=== PATIENT | female | born 1950 | race Caucasian/White ===

== ENCOUNTER 2018-02-05 19:51 | Emergency (ER) | payer MEDICARE, OTHER ==
[~2018-02-05] VITALS: Ht 165.1 cm; Wt 47.6 kg
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
[2018-02-05 20:36] VITALS: BP 154/87
[2018-02-05 20:39] VITALS: BP 154/87
== END 2018-02-05 20:55 ==
LOC: EDBD 19:51 → EMR 20:11
DX: F11.20 Opioid dependence, uncomplicated (principal)
CPT/HCPCS: 99284

== ENCOUNTER 2018-04-02 23:24 | Emergency (ER) | payer MEDICARE, OTHER ==
[~2018-04-02] VITALS: Ht 165.1 cm; Wt 59.0 kg
[~2018-04-02 23:24] MED LIST: METHADONE HCL5 MG PO
[2018-04-02] MEDS ORDERED: Acetaminophen 500mg (ES) tab ORAL ONE (23:30)
[2018-04-03] MEDS ORDERED: LIDOCAINE700 M1 TP (01:37)
[2018-04-03 01:40] VITALS: BP 122/78
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
== END 2018-04-03 01:40 | disposition home or self-care (01) ==
LOC: EDBD 23:24 → EMR 23:55
DX: S30.0XXA Contusion of lower back and pelvis, initial encounter (principal); Y09 Assault by unspecified means; Y93.9 Activity, unspecified; Y92.9 Unspecified place or not applicable
CPT/HCPCS: 70450; 72131; 99284

== ENCOUNTER → 2019-06-14 | Emergency (ER) | payer MEDICARE, OTHER ==
[~2019-06-14] VITALS: Ht 167.6 cm; Wt 63.5 kg
[~2019-06-14] MED LIST changes: +ALBUTEROL SULF8.5 GM INH; +Albuterol/Ipratropium 3ml neb HHN ONE; +EPINEPHrine 1mg/1ml Amp ONE; +LIDOCAINE700 M1 TP; +NKM
[2019-06-14 07:51] VITALS: BP 143/70
--- NOTE | 2019-06-14 07:51 | NUR ---
ED Nurse Note: PT is homeless from streets ([employer]) brought in by SIDRA RA 67 for SOB, R-lung field wheezing, and cough. PT has HX of asthma, reported PT goes to methadone clinic daily. VS reported BP 143/70; HR 96; RR 16; rectal temp 97.6, O2 sat prior treatment 86%, PT was given Albuterol 5mg neb treatment O2 sat 96% with treatment. PT refuses male RN/staff help, female RN/staff requested, JOHNNY Yost made aware. PT is refusing placement of IV access. Bilateral arms reveal scabs, bilateral legs/feet no wounds, PT refuses to take off clothes.
--- NOTE | 2019-06-14 08:01 | NUR ---
ED Nurse Note: Pt states that she does not take any medications.
--- NOTE | 2019-06-14 08:05 | Emergency Room Report ---
History of Present Illness General Chief Complaint: Dyspnea/Respdistress Source: Medical Record, EMS Present Illness HPI She is a 68-year-old female who presents after increased difficulty with breathing. Patient had gradual onset of symptoms since this morning. She reports having some prior history of COPD. She states that she still smokes occasionally. She reports having increased productive cough. She denies any fever. She reports having some increased generalized body pain. Patient denies any prior cardiac conditions. She denies taking medications regularly. History is limited by poor historian. Allergies: Coded Allergies: No Known Allergies (Unverified , 02/05/18) Patient History Now: No Reviewed Nursing Documentation: PMH: Agreed; PSxH: Agreed Nursing Documentation-PMH Hx Asthma: Yes Review of Systems All Other Systems: negative except mentioned in HPI Physical Exam Vital Signs Date Time Temp Pulse Resp B/P (MAP) Pulse Ox O2 Delivery O2 Flow Rate FiO2 06/14/19 07:51 96 16 143/70 (94) 96 Room Air Sp02 EP Interpretation: reviewed, normal General Appearance: normal inspection, well appearing, no apparent distress, alert, GCS 15, non-toxic, thin, Chronically Ill Head: normocephalic, atraumatic ENT: normal ENT inspection, hearing grossly normal, normal voice Neck: normal inspection, full range of motion, supple, no bony tend Respiratory: no retraction, wheezing Cardiovascular #1: regular rate, rhythm, no edema Gastrointestinal: normal inspection, normal bowel sounds, non tender, soft, no guarding, no hernia Genitourinary: no CVA tenderness Musculoskeletal: normal inspection, back normal, normal range of motion Neurologic: normal inspection, alert, oriented x3, responsive, manager program management III-XII nml as tested, speech normal Psychiatric: mood/affect normal Skin: no rash Medical Decision Making Diagnostic Impression: Primary Impression: COPD exacerbation ER Course Patient presented for shortness of breath. Differential included but was not limited to anemia, pneumonia, pneumothorax, myocardial infarction, pericardial effusion, congestive heart failure, acidosis. Because of complexity of patient' s case laboratory tests and imaging studies were ordered. Patient was noted to have prior history of chronic lung disease and is currently a smoker. She was noted to have wheezing and symptoms consistent with a COPD exacerbation. Chest x-ray 1 view read by radiology showed hyperinflated lungs without acute infiltrate or cardiomegaly. EKG interpreted by me showed normal sinus rhythm with a rate of [address] or T wave changes. Nonspecific T wave flattening was noted. Patient was given breathing treatments by paramedics prior to arrival and continued to have some wheezing. She was placed on a restaurant crew. She was given IV Solu-Medrol. She was given additional breathing treatment. Patient is noted to have improvement in her respiratory status. Patient stated that she did not want to remain in the hospital and wanted to leave. I do not feel that the patient is currently stable for discharge and patient was advised the risks benefits and alternatives of leaving AGAINST MEDICAL ADVICE. Patient stated that she wanted to leave the hospital despite the risk. Labs Test 06/14/19 09:10 White Blood Count 8.1 K/UL (4.8-10.8) Red Blood Count 5.69 M/UL (4.20-5.40) Hemoglobin 17.7 G/DL (12.0-16.0) Hematocrit 53.4 % (37.0-47.0) Mean Corpuscular Volume 94 FL (80-99) Mean Corpuscular Hemoglobin 31.2 PG (27.0-31.0) Mean Corpuscular Hemoglobin Concent 33.2 G/DL (32.0-36.0) Red Cell Distribution Width 10.3 % (11.6-14.8) Platelet Count 199 K/UL (150-450) Mean Platelet Volume 8.9 FL (6.5-10.1) Neutrophils (%) (Auto) 80.3 % (45.0-75.0) Lymphocytes (%) (Auto) 10.2 % (20.0-45.0) Monocytes (%) (Auto) 8.3 % (1.0-10.0) Eosinophils (%) (Auto) 0.0 % (0.0-3.0) Basophils (%) (Auto) 1.1 % (0.0-2.0) Prothrombin Time 10.6 SEC (9.30-11.50) Prothromb Time International Ratio 1.0 (0.9-1.1) Activated Partial Thromboplast Time 25 SEC (23-33) Sodium Level 139 MMOL/L (136-145) Potassium Level 4.4 MMOL/L (3.5-5.1) Chloride Level 101 MMOL/L (98-107) Carbon Dioxide Level 33 MMOL/L (21-32) Anion Gap 5 mmol/L (5-15) Blood Urea Nitrogen 17 mg/dL (7-18) Creatinine 0.8 MG/DL (0.55-1.30) Estimat Glomerular Filtration Rate > 60 mL/min (>60) Glucose Level 123 MG/DL (74-106) Calcium Level 9.0 MG/DL (8.5-10.1) Total Bilirubin 0.4 MG/DL (0.2-1.0) Aspartate Amino Transf (AST/SGOT) 39 U/L (15-37) Alanine Aminotransferase (ALT/SGPT) 25 U/L (12-78) Alkaline Phosphatase 70 U/L (46-116) Troponin I 0.035 ng/mL (0.000-0.056) Pro-B-Type Natriuretic Peptide 696 pg/mL (0-125) Total Protein 7.6 G/DL (6.4-8.2) Albumin 3.4 G/DL (3.4-5.0) Globulin 4.2 g/dL Albumin/Globulin Ratio 0.8 (1.0-2.7) EKG Diagnostic Results Rate: normal - 79 Rhythm: NSR ST Segments: other - Nonspecific ST changes. Last Vital Signs Date Time Temp Pulse Resp B/P (MAP) Pulse Ox O2 Delivery O2 Flow Rate FiO2 06/14/19 07:51 96 16 143/70 (94) 96 Room Air Status: improved Disposition: AGAINST MEDICAL ADVICE Condition: Stable Scripts Albuterol Sulfate* (ALBUTEROL SULFATE MDI*) 8.5 Gm Hfa.aer.ad 2 PUFF INH Q6H, #1 EA 0 Refills Prov: Keo Galvez MD 06/14/19 Referrals: NOT CHOSEN KATY/,REFERRING (PCP) Keo Galvez MD Jun 14, 2019 08:05
--- NOTE | 2019-06-14 08:51 | NUR ---
ED Nurse Note: IV access unattainable at the moment and PT is non cooperative. CN made aware.
--- NOTE | 2019-06-14 09:11 | Diagnostic Imaging Report ---
EXAM: XR Chest, 1 View CLINICAL HISTORY: SOB TECHNIQUE: Frontal view of the chest. COMPARISON: No relevant prior studies available. FINDINGS: Lungs: Hyperinflated lungs, COPD. Mild interstitial prominence. No focal infiltrate or consolidation. Pleural space: Unremarkable. No pneumothorax. Heart: Unremarkable. No cardiomegaly. Mediastinum: Unremarkable. Bones joints: Unremarkable. IMPRESSION: 1. Hyperinflated lungs, COPD. 2. Mild interstitial prominence. No focal infiltrate or consolidation.
--- NOTE | 2019-06-14 09:14 | NUR ---
ED Nurse Note: Labs drawn and sent, only 1 set of blood culture obtained.
--- NOTE | 2019-06-14 09:25 | NUR ---
HAND-OFF: Report and PT given to KARSON Arcos. PT VS 117/92, HR 96, RR 20, O2 sat 92%. PT shows no S/S of respiratory distress. PT moved from Trauma bed 8 to Monitored bed 6.
[2019-06-14 09:29] VITALS: BP 137/83
[2019-06-14 09:31] LABS: ANION GAP 5 mmol/L (5-15); BLOOD UREA NITROGEN 17 mg/dL (7-18); CARBON DIOXIDE 33 MMOL/L (21-32); CHLORIDE 101 MMOL/L (98-107); CREATININE 0.8 MG/DL (0.55-1.30); POTASSIUM 4.4 MMOL/L (3.5-5.1); SODIUM 139 MMOL/L (136-145)
[2019-06-14 09:33] LABS: BASOPHILS % (AUTO) 1.1 % (0.0-2.0); HEMATOCRIT 53.4 % (37.0-47.0); HEMOGLOBIN 17.7 G/DL (12.0-16.0); LYMPHOCYTES % (AUTO) 10.2 % (20.0-45.0); MEAN CORPUSCULAR VOLUME 94 FL (80-99); MONOCYTES % (AUTO) 8.3 % (1.0-10.0); NEUTROPHILS % (AUTO) 80.3 % (45.0-75.0); PLATELET COUNT 199 K/UL (150-450); RED BLOOD COUNT 5.69 M/UL (4.20-5.40); RED CELL DISTRIBUTION WIDTH 10.3 % (11.6-14.8); WHITE BLOOD COUNT 8.1 K/UL (4.8-10.8)
[2019-06-14 09:42] LABS: ALANINE AMINOTRANSFERASE 25 U/L (12-78); ALBUMIN 3.4 G/DL (3.4-5.0); ALBUMIN/GLOBULIN RATIO 0.8 (1.0-2.7); ALKALINE PHOSPHATASE 70 U/L (46-116); ASPARTATE AMINO TRANSFERASE 39 U/L (15-37); BILIRUBIN,TOTAL 0.4 MG/DL (0.2-1.0)
--- NOTE | 2019-06-14 10:10 | NUR ---
ED Nurse Note: pt is requesting methadone, states that we must either give it to her or she will get up and leave. O2 sats are at 85% on RA without supplemental O2. I explained to the pt that [facility] will not be ordering her methadone, pt has become increasingly agitated. she refuses to sign AMA paperwork unless she is provided with a method of transportation to get to methadone clinic or money for the bus to get there. pt does not know the name or address of clinic, only which buses to take to get there. pt does not know the dose of methatdone she needs either. security is at bedside
--- NOTE | 2019-06-14 10:20 | NUR ---
ED Nurse Note: security escorted pt out of facility via wheelchair. they report that they helped her get on a bus. pt refused to sign AMA form. AMRIKD is aware and was able to explain the risks to the pt before she left but she still wanted to go. pt verbalized understanding and left with her belongings
== END | disposition home or self-care (01) ==
LOC: EDUNIT# 07:44 → EDBD 07:51 → EMR 08:00
DX: J44.1 Chronic obstructive pulmonary disease with (acute) exacerbation (principal); F17.200 Nicotine dependence, unspecified, uncomplicated
CPT/HCPCS: 36415; 71045; 80053; 83880; 84484; 85025; 85610; 85730; 87040; 93005; 94640; 99284; J7620

== ENCOUNTER 2019-06-15 05:41 | Inpatient (IN) | payer MEDICARE, OTHER ==
[~2019-06-15] VITALS: Ht 160 cm; Wt 46.8 kg
[~2019-06-15 05:41] MED LIST changes: -Albuterol/Ipratropium 3ml neb HHN ONE; -EPINEPHrine 1mg/1ml Amp ONE
[2019-06-15] MEDS ORDERED: Ipratropium 0.02% Inh Soln 2.5ml UD HHN ONE (05:45)
[2019-06-15] MEDS ORDERED: Solu-MEDROL 125mg Inj IVP ONE (05:45)
[2019-06-15] MEDS ORDERED: EPINEPHrine 1mg/1ml Amp IM ONE (05:45)
[2019-06-15] MEDS: Albuterol ud Inhalation HHN SCH ×3 (05:59→06:47)
--- NOTE | 2019-06-15 06:10 | NUR ---
ED Nurse Note: Recieved pt BIBA from home with c/o severe respiratory disress, pt is awake, alert and oriented x 4, noted with severe sob and tachypnea, pt immediately placed on BIPAP by respiratory therapist, gowned and placed on cardiac monitoring, pt admits to IV drug use, BUE noted with severe needle like markings on arms and legs, attempting IV line, pt denies cp, abd pain or any other complaints, pt denies any medical hx other than drug use which she states she takes methadone for, will continue to obtain lbs and closely monitor and carry out orders as ordered by .
--- NOTE | 2019-06-15 06:30 | Emergency Room Report ---
History of Present Illness General Chief Complaint: Dyspnea/Respdistress Source: Patient, Medical Record, EMS Present Illness HPI Patient presents with dyspnea. She is transported by EMS. They did not start an IV and gave the patient albuterol treatment. She was transported here by them yesterday morning. They report she has a history of being on methadone and suspect other drugs involved. Apparently she signed out AMA yesterday. She stated yesterday she takes methadone 180 mg/d. She is unable to answer questions as she is obtunded. Allergies: Coded Allergies: No Known Allergies (Unverified , 02/05/18) Patient History Past Medical History: see triage record Social History: Reports: smoking, drug use Social History Narrative From streets Last Menstrual Period: n/a Reviewed Nursing Documentation: PMH: Agreed; PSxH: Agreed Nursing Documentation-PMH Past Medical History: No History, Except For Hx Asthma: Yes Physical Exam Vital Signs Date Time Temp Pulse Resp B/P (MAP) Pulse Ox O2 Delivery O2 Flow Rate FiO2 06/15/19 05:39 97.5 120 39 129/79 (96) 100 Room Air 06/15/19 05:46 50 Sp02 EP Interpretation: reviewed, abnormal - Hypoxic on 50% mask General Appearance: lethargic, thin, Chronically Ill Eyes: bilateral eye PERRL - 3 mm bilat ENT: moist mucus membranes Neck: supple Respiratory: crackles, wheezing, expiration, inspiration Neurologic: DTRs symmetric, other - Lethargic but moves all 4 Skin: mottled, other - Cyanotic Procedures Critical Care Time Critical Care Time Total Critical Care Time: 90 min bedside evaluation and treatment excludes procedures (EKG). Reason for critical care: Respiratory failure, repeat exams, NSTEMI Possible complications: hypotension, hypertension, AK, shock, arrhythmias, metabolic acidosis, end organ damage, respiratory failure. Interventions: BiPAP, Solu-Medrol, breathing treatments, repeated exams, aspirin , discussion with patient regarding treatment as she was refusing care at one point Course: Patient presented with respiratory failure. BiPAP begun immediately and breathing treatments. Epinephrine given IM. Some improvement in CO2 monitor begun. Positive troponin treated with aspirin. Patient initially refused as she stated she wanted to have pain treatment. EKG without STEMI. Morphine ordered. At this time patient was more alert. Tolerating BiPAP with improvement. She was no longer cyanotic. Breathing treatment repeated. Discussed with admitting physician. Consultations: nursing staff, EMS, respiratory therapy Performed by: Dr. Cheek Tolerated well condition = critical Medical Decision Making Diagnostic Impression: Primary Impression: Respiratory distress Additional Impressions: COPD exacerbation Opiate dependence Qualified Codes: F11.29 - Opioid dependence with unspecified opioid-induced disorder Elevated troponin Hyperglycemia ER Course Patient presents with respiratory distress with somnolence. Differential includes opiate excess, COPD exacerbation with CO2 retention, pneumonia, myocardial infarction, opiate related pulmonary edema amongst others. The patient is to can think at this time and needs aggressive treatment. I have epinephrine is given as a verbal order. Patient will be evaluated with EKG, chest x-ray and labs. Breathing treatments will be started, the patient will be given Solu-Medrol, BiPAP is ordered. Somewhat improved after epi and on BIPAP 6:20 CO2 now 22. EKG with sinus rhythm. P pulmonale and nonspecific ST-T wave changes without injury. Chest x-ray with COPD without infiltrate. Called with positive troponin at 735. Aspirin ordered. Patient refused aspirin until getting Methadone. Told her I will tx with morphine. She is fully awake (no narcan given). No more mottling or cyanosis. Presented to Dr. Obrien. Admitted to stepdown unit. Laboratory Tests Test 06/15/19 06:15 White Blood Count 8.6 K/UL (4.8-10.8) Red Blood Count 5.16 M/UL (4.20-5.40) Hemoglobin 16.2 G/DL (12.0-16.0) H Hematocrit 47.7 % (37.0-47.0) H Mean Corpuscular Volume 93 FL (80-99) Mean Corpuscular Hemoglobin 31.5 PG (27.0-31.0) H Mean Corpuscular Hemoglobin Concent 34.0 G/DL (32.0-36.0) Red Cell Distribution Width 9.9 % (11.6-14.8) L Platelet Count 202 K/UL (150-450) Mean Platelet Volume 8.4 FL (6.5-10.1) Neutrophils (%) (Auto) 73.6 % (45.0-75.0) Lymphocytes (%) (Auto) 17.0 % (20.0-45.0) L Monocytes (%) (Auto) 8.1 % (1.0-10.0) Eosinophils (%) (Auto) 0.1 % (0.0-3.0) Basophils (%) (Auto) 1.3 % (0.0-2.0) Prothrombin Time 10.9 SEC (9.30-11.50) Prothrombin Time INR 1.0 (0.9-1.1) PTT 26 SEC (23-33) Sodium Level 139 MMOL/L (136-145) Potassium Level 3.6 MMOL/L (3.5-5.1) Chloride Level 99 MMOL/L (98-107) Carbon Dioxide Level 30 MMOL/L (21-32) Anion Gap 10 mmol/L (5-15) Blood Urea Nitrogen 22 mg/dL (7-18) H Creatinine 0.8 MG/DL (0.55-1.30) Estimate Glomerular Filtration Rate > 60 mL/min (>60) Glucose Level 232 MG/DL (74-106) #H Calcium Level 8.8 MG/DL (8.5-10.1) Magnesium Level 1.7 MG/DL (1.8-2.4) L Total Bilirubin 0.5 MG/DL (0.2-1.0) Aspartate Amino Transferase (AST) 45 U/L (15-37) H Alanine Aminotransferase (ALT) 30 U/L (12-78) Alkaline Phosphatase 61 U/L (46-116) Total Creatine Kinase 396 U/L (26-308) H Troponin I 1.824 ng/mL (0.000-0.056) Pro-B-Type Natriuretic Peptide 1920 pg/mL (0-125) H Total Protein 7.2 G/DL (6.4-8.2) Albumin 3.2 G/DL (3.4-5.0) L Globulin 4.0 g/dL Albumin/Globulin Ratio 0.8 (1.0-2.7) L Lipase 56 U/L (73-393) L EKG Diagnostic Results Rate: normal Rhythm: NSR ST Segments: no acute changes - The pulmonology no ST elevation ASA given to the pt in ED: Yes Rhythm Strip Diag. Results EP Interpretation: yes Rhythm: NSR, no PVC's, no ectopy Chest X-Ray Diagnostic Results Chest X-Ray Diagnostic Results : Chest X-Ray Ordered: Yes # of Views/Limited/Complete: 1 View Indication: Shortness of Breath EP Interpretation: Yes Interpretation: no consolidation, no effusion, no pneumothorax, other - COPD Impression: Other Electronically Signed by: Electronically signed by Naif Cheek MD Last Vital Signs Date Time Temp Pulse Resp B/P (MAP) Pulse Ox O2 Delivery O2 Flow Rate FiO2 06/16/19 00:00 98.2 72 20 104/60 (75) 93 06/16/19 00:00 Nasal Cannula 2.0 06/15/19 08:20 50 Status: improved Disposition: ADMITTED INPATIENT Condition: Critical Referrals: NOT CHOSEN [facility]/,REFERRING (PCP) Naif Cheek MD Jun 15, 2019 06:30
--- NOTE | 2019-06-15 06:30 | NUR ---
ED Nurse Note: IV line obtained after many atempts by several nurses, meds given anf fluids started as ordered, pt is awake and alert, c/o having severe pain and asking for methadone, MD informed immediately, tp breathing is appearing to be with less effort, pt remains on BIPAP and continuous monitoring.
[2019-06-15 06:45] VITALS: BP 100/70
[2019-06-15 07:18] LABS: BASOPHILS % (AUTO) 1.3 % (0.0-2.0); EOSINOPHILS % (AUTO) 0.1 % (0.0-3.0); HEMATOCRIT 47.7 % (37.0-47.0); HEMOGLOBIN 16.2 G/DL (12.0-16.0); MEAN CORPUSCULAR VOLUME 93 FL (80-99); MONOCYTES % (AUTO) 8.1 % (1.0-10.0); NEUTROPHILS % (AUTO) 73.6 % (45.0-75.0); PLATELET COUNT 202 K/UL (150-450); RED BLOOD COUNT 5.16 M/UL (4.20-5.40); RED CELL DISTRIBUTION WIDTH 9.9 % (11.6-14.8); WHITE BLOOD COUNT 8.6 K/UL (4.8-10.8)
[2019-06-15 07:28] LABS: ANION GAP 10 mmol/L (5-15); BLOOD UREA NITROGEN 22 mg/dL (7-18); CALCIUM 8.8 MG/DL (8.5-10.1); CARBON DIOXIDE 30 MMOL/L (21-32); CHLORIDE 99 MMOL/L (98-107); CREATININE 0.8 MG/DL (0.55-1.30); POTASSIUM 3.6 MMOL/L (3.5-5.1); SODIUM 139 MMOL/L (136-145)
[2019-06-15 07:30] VITALS: BP 105/68
--- NOTE | 2019-06-15 07:30 | NUR ---
ED Nurse Note: pt is tolerating bi-pap well, remains calm, aware of being admitted to hospital. MD aware of troponin result. vital signs stable, CO2 monitor: 26. belongings list done. pt does not meet criteria for swab specimen collection.
[2019-06-15 07:41] LABS: ALANINE AMINOTRANSFERASE 30 U/L (12-78); ALBUMIN 3.2 G/DL (3.4-5.0); ALBUMIN/GLOBULIN RATIO 0.8 (1.0-2.7); ALKALINE PHOSPHATASE 61 U/L (46-116); ASPARTATE AMINO TRANSFERASE 45 U/L (15-37); BILIRUBIN,TOTAL 0.5 MG/DL (0.2-1.0); CREATINE KINASE 396 U/L (26-308)
[2019-06-15] MEDS ORDERED: Morphine Sulfate 4mg/ml Inj (IV USE ONLY) IVP ONE (08:00)
--- NOTE | 2019-06-15 08:20 | NUR ---
ED Nurse Note: pt is in stable condition, will transport pt upstairs with RN per ACLS protocol
--- NOTE | 2019-06-15 08:30 | NUR ---
NURSE NOTES: Received report from KARSON Arcos. Patient arrived to unit in stable condition. No s/sx of SOB, patient is on 2 L NC. Patient noted has Bipap 15/5 50% FiO2, patient refuses Bipap, RT also aware of patients refusal of Bipap. No presence of pain or discomfort at this time. Bed is in lowest position, brakes engaged. Call light is kept within easy reach. Will continue to monitor patient.
--- NOTE | 2019-06-15 09:00 | NUR ---
NURSE NOTES: Patient states would like to leave hospital Against Medical Advice, explained to patient risks and possible negative outcomes of leaving hospital AMA. Called and notified Dr. Obrien.
--- NOTE | 2019-06-15 10:00 | NUR ---
NURSE NOTES: Patient has changed leaving hospital AMA. Called and notified Dr. Obrien and received admission orders. Informed MD that patient would like to be DNR/DNI for codes status. Patient is alert and oriented x 3-4 and makes medical decision for self. Dr. Obrien acknowledged and ordered DNR/DNI. Informed Dr. Obrien that patient is refusing BiPAP. Dr. Obrien acknowledged and ordered BiPAP QHS and PRN. Informed Dr. Obrien that patient has troponin of 1.824, ordered heparin drip per pharmacy protocol, no heparin bolus, serial troponin lab Q8HR x 3, Dr. Hines for cardiology consult. All orders entered, noted, and carried out. Will continue to monitor patient.
--- NOTE | 2019-06-15 11:00 | NUR ---
NURSE NOTES: Per pharmacist Kyara and pharmacist Mikaela, can Y-Site magnesium sulfate 1 gm IV x 1 and 0.45% normal saline IVF at 50 cc/hr can be W-site with heparin drip. Noted. Charge nurse made aware. Will continue to monitor patient.
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
[2019-06-15] MEDS ORDERED: Heparin 25,000u/D5W 500ml 500 ML IV SCH (11:30)
[2019-06-15] MEDS: Solu-MEDROL 40mg Inj IVP SCH ×3 (11:35→23:31)
--- NOTE | 2019-06-15 12:30 | Diagnostic Imaging Report ---
Indication: Dyspnea Technique: One view of the chest Comparison: 06/14/2019 Findings: Patient's chin obscures the upper mediastinum. Lungs and pleural spaces are grossly clear. The heart size is normal. The aorta is calcified Impression: No acute process
--- NOTE | 2019-06-15 16:15 | History and Physical Report ---
DATE OF ADMISSION: 06/15/2019 HISTORY OF PRESENT ILLNESS: This is a 68-year-old homeless female with a history of chronic methadone use. She was brought to the emergency room early this morning with complaints of shortness of breath. She was given breathing treatments. The patient appeared to be doing very poorly. Per the ER physician's note, she was hypoxic despite being on 50% Ventimask and lethargic. At that time, she was placed on a BiPAP with improvement symptomatology. The patient also received narcotics. She has history of chronic methadone usage. On my assessment, the patient is refusing all care. She has taken off her BiPAP. She is not willing to have an IV in place or a domestic housekeeper. She wishes to leave AMA. She appears to be alert and oriented although occasionally dozes off. REVIEW OF SYSTEMS: Unobtainable. PAST MEDICAL HISTORY: COPD, chronic methadone usage. HOME MEDICATIONS: Methadone, ALLERGIES: None. PHYSICAL EXAMINATION: GENERAL: Reveals a 68-year-old female. VITAL SIGNS: Blood pressure is 120/70, heart rate is 74, respirations 18, afebrile. HEENT: Unremarkable. LUNGS: Shows clear breath sounds bilaterally, diminished at both lung bases. ABDOMEN: Soft. CARDIOVASCULAR: Heart sounds are normal. EXTREMITIES: There is no edema. There is no cyanosis. DIAGNOSTIC AND LABORATORY DATA: EKG shows normal sinus rhythm. X-ray of chest shows hyperinflation. LABORATORY DATA: Lab testing is notable for hemoglobin of 16, BUN 22, glucose 232, magnesium 1.7, and troponin is 1.82. Coags are negative. IMPRESSION: 1. Likely non-STEMI. 2. Exacerbation of COPD. 3. Respiratory failure. 4. Chronic methadone usage. 5. Homeless. DISCUSSION: The patient at this time wishes to leave AMA. I have tried to talk to her and counseled her, however, she is insisting on leaving AMA. Discussed with bedside RN and charge nurse. We will follow. Mehdi Obrien M.D. DR: AVILA JOB#: [id number] CC:
[2019-06-15] MEDS ORDERED: Heparin 5000 units/ml inj IV SCH (18:14)
[2019-06-15] MEDS: Heparin 25,000u/D5W 500ml 500 ML IV SCH (18:45)
--- NOTE | 2019-06-15 19:30 | NUR ---
HAND-OFF: Report given to KARSON Stallings.
--- NOTE | 2019-06-15 19:45 | NUR ---
NURSE NOTES: PATIENT ALERT, ORIENTED X3, CONFUSED TO SITUATION AT THIS TIME, DENIED PAIN OR DISTRESS, RESPIRATION IRREGULAR, ON O2 2LPM VIA NC, O2 SATURATION 94% NOTED, NO COUGH OR SOB NOTED, ABDOMEN SOFT, NON TENDER, PERIPHERAL LINE TO RIGHT FA, INTACT AND PATENT, ONGOING HEPARIN 16 UNIT/KG/HR AND 1/2 NS AT 50ML/HR, MADE LOWER BED POSITION, ON BED ALARM AND LOCKED, PROVIDED CALL LIGHT WITHIN REACH, WILL CONTINUE TO MONITOR.
[2019-06-15 20:00] VITALS: BP 104/73
--- NOTE | 2019-06-15 22:10 | NUR ---
NURSE NOTES: PATIENT DENIED PAIN OR SOB AT THIS TIME.
--- NOTE | 2019-06-15 23:30 | Consultation ---
DATE OF CONSULTATION: 06/15/2019 CONSULTING PHYSICIAN: Jareth Arias M.D. REFERRING PHYSICIAN: Mehdi Obrien M.D. REASON FOR CONSULTATION: 1. Dehydration. 2. Hypomagnesemia. HISTORY OF PRESENT ILLNESS: The patient is a 68-year-old female brought in by EMS due to new onset shortness of breath and dyspnea. She has underlying asthma. Noted to have an elevated troponin. Seemingly, she had signed out against medical advice yesterday. She does take methadone 100 mg per day. Quite agitated. She is not comfortably resting. PAST MEDICAL HISTORY: 1. Opioid dependency. 2. Asthma. PAST SURGICAL HISTORY: Noncontributory. ALLERGIES: No known drug allergies. FAMILY HISTORY: Positive for hypertension. SOCIAL HISTORY: Occasional tobacco. Opioid dependent. No alcohol. REVIEW OF SYSTEMS: CONSTITUTIONAL: The patient is somnolent, but arousable. CARDIOVASCULAR: No current chest pain or palpitations. PULMONARY: Mild shortness of breath with productive cough. GASTROINTESTINAL/GENITOURINARY: No change in urine or bowels habits. No nausea, vomiting, or diarrhea. ENDOCRINOLOGY: No night sweats fevers or chills. MUSCULOSKELETAL: The patient is feeling weak, tired, and fatigued. PHYSICAL EXAMINATION: VITAL SIGNS: Blood pressure 105/68, respiratory rate 18, pulse 98, temperature 98.1, and saturating 97% on 2 liters BiPAP. GENERAL: The patient is somnolent, but arousable. HEENT: Extraocular muscles intact. No lymphadenopathy noted. Oropharyngeal mucosa is clear and dry. CARDIOVASCULAR: S1 and S2. No rubs or gallops. PULMONARY: Mild diffuse expiratory wheezing. Fair air movement. ABDOMEN: Nondistended and nontender. EXTREMITY: No edema noted. LABORATORY DATA: Laboratories dated June 19, 2019, sodium 139, potassium 3.6, creatinine 0.8, and magnesium 1.7. Troponin 1.8. Hemoglobin 16.2, white cell count 8.6, and platelet count 202,000. ASSESSMENT AND PLAN: 1. Hypomagnesemia. At this time, we will replace and check phosphorus levels as well to maintain stable electrolytes during treatment of status asthmaticus. 2. Dehydration. We will continue hypotonic solution. 3. Shortness of breath secondary to status asthmaticus. Defer management to Pulmonary. Let me take this opportunity to thank Dr. Obrien. Jareth Arias MD DR: KEYSHAWN JOB#: [id number] CC:
[2019-06-16] VITALS (7 sets, daily range): BP systolic 92–137; BP diastolic 54–92
--- NOTE | 2019-06-16 00:21 | NUR ---
HAND-OFF: Report given to RODOLFO CUELLO RN.
--- NOTE | 2019-06-16 00:22 | NUR ---
NURSE NOTES: received pt from Waldemar RN., pt is resting and sleeping on the bed. Heparin drip is running at 16unit/kg/hr. Right FA IV 22G is intact, clean, and patent, and 1/2 NS running at 50cc/hr. no symptoms of bleeding. bed at the lowest position, alarmed, and locked. call light within reach. will continue to monitor pt with plan of care.
--- NOTE | 2019-06-16 00:59 | NUR ---
NURSE NOTES: pt strongly refuses to draw blood peripherally to get ptt and troponin level. explained the critical reason of drawing blood and consequences to refusing. pt still refuses to not draw blood. pt states " I want to do it later at 0430 AM, I do not want to do anything before that. I know my consequences of not doing it." call light within reach. will continue to monitor pt.
--- NOTE | 2019-06-16 03:00 | NUR ---
NURSE NOTES: attempted to ask pt to draw blood for PTT and troponin level, pt finally agree to draw blood but just once for now. pt wants to rest and pt refuses to get cleaned. pt states " I want to do everything in the morning. not now." call light within reach. will continue to monitor pt with plan of care.
[2019-06-16 03:24] LABS: ANION GAP 2 mmol/L (5-15); BLOOD UREA NITROGEN 16 mg/dL (7-18); CALCIUM 8.9 MG/DL (8.5-10.1); CARBON DIOXIDE 34 MMOL/L (21-32); CHLORIDE 101 MMOL/L (98-107); CREATININE 0.7 MG/DL (0.55-1.30); POTASSIUM 4.6 MMOL/L (3.5-5.1); SODIUM 137 MMOL/L (136-145)
--- NOTE | 2019-06-16 03:51 | NUR ---
NURSE NOTES: confirmed with pharmacist Gilma to continue heparin at same 16 unit/kg/hr. and aPTT test at 0400 on 06/17/2019. will carry on. pt is resting on the bed. call light within reach. no SOB noted.
[2019-06-16 04:17] LABS: PHOSPHORUS 3.6 MG/DL (2.5-4.9)
[2019-06-16] MEDS: Solu-MEDROL 40mg Inj IVP SCH ×4 (05:32→23:05)
--- NOTE | 2019-06-16 07:20 | NUR ---
NURSE NOTES: RECEIVED BED SIDE REPORT FROM [employer] SPECIALIST OF NOC SHIFT. RECEIVED PT RESTING IN BED COMFORTABLY DENIES CP AT THIS TIME.PT USING O2@ 3L/MINTS VIA N/C,SAT 96%.PT RECEIVING HEPARIN DRIP 16U/KG/HR INFUSING WELL CONNECTED TO H.L ON RT FA. IV SITE INTACT. WILL CONT TO MONITOR.
--- NOTE | 2019-06-16 07:31 | Nephrology Progress Note ---
Assessment/Plan Assessment/Plan: A/P 1) Asthma Exacerbation- per pulmonary mgmt 2) Hypomag- replaced and corrected 3) dehydration- resolved. DC IVFs 4) Opioid Dependancy Subjective Date patient seen: Jun 16, 2019 Time patient seen: 07:29 ROS Limited/Unobtainable: No Allergies: Coded Allergies: No Known Allergies (Unverified , 02/05/18) Subjective Patent resting in no overt distress. Breathing improved. Somnolent but arousable Objective Last 24 Hour Vital Signs Date Time Temp Pulse Resp B/P (MAP) Pulse Ox O2 Delivery O2 Flow Rate FiO2 06/16/19 04:00 2.0 06/16/19 04:00 Nasal Cannula 2.0 06/16/19 04:00 97.9 91 20 103/61 (75) 94 06/16/19 03:07 85 06/16/19 00:00 98.2 72 20 104/60 (75) 93 06/16/19 00:00 Nasal Cannula 2.0 06/15/19 23:27 84 06/15/19 20:00 98.1 86 20 104/73 (83) 94 06/15/19 20:00 2.0 06/15/19 20:00 Nasal Cannula 2.0 06/15/19 19:34 82 06/15/19 16:00 Nasal Cannula 2.0 06/15/19 16:00 2.0 06/15/19 16:00 74 06/15/19 12:00 88 06/15/19 12:00 2.0 06/15/19 12:00 Nasal Cannula 2.0 06/15/19 10:48 Nasal Cannula 2.0 06/15/19 08:38 97 06/15/19 08:20 98.1 98 18 105/68 97 Bi-pap 50 06/15/19 07:40 50 06/15/19 07:30 98 18 105/68 97 Bi-pap 50 Intake and Output 06/15/19 06/16/19 19:00 07:00 Intake Total 1217.278 ml 519.60 ml Balance 1217.278 ml 519.60 ml Intake Oral 0 ml 0 ml IV Total 1217.278 ml 519.60 ml # Voids 2 2 Laboratory Tests 06/15/19 17:30: Activated Partial Thromboplast Time 36H, Troponin I 0.815H 06/16/19 02:45: Activated Partial Thromboplast Time 67H, Troponin I 0.452H, Sodium Level 137, Potassium Level 4.6, Chloride Level 101, Carbon Dioxide Level 34H, Anion Gap 2L , Blood Urea Nitrogen 16, Creatinine 0.7, Estimat Glomerular Filtration Rate > 60, Glucose Level 135H, Calcium Level 8.9, Phosphorus Level 3.6, Magnesium Level 1.9 Height (Feet): 5 Height (Inches): 3.00 Weight (Pounds): 103 General Appearance: no apparent distress EENT: normal ENT inspection Neck: normal alignment, supple Cardiovascular: normal rate, regular rhythm Respiratory/Chest: expiratory wheezing Abdomen: non tender, soft Edema: no edema noted Arm (L), no edema noted Arm (R), no edema noted Leg (L), no edema noted Leg (R), no edema noted Pedal (L), no edema noted Pedal (R), no edema noted Generalized Jareth Arias MD Jun 16, 2019 07:31
--- NOTE | 2019-06-16 07:54 | NUR ---
HAND-OFF: Report given to Joaquim TY. pt no SOB noted.
--- NOTE | 2019-06-16 09:41 | Consultation ---
History of Present Illness General Date patient seen: Jun 16, 2019 Time patient seen: 12:15 Chief Complaint: Dyspnea/Respdistress Present Illness HPI 68 year old female presents with SOB on BiPAP initially for tachypnea. She has hx of IV drug use. No chest pain currently, no fevers. She is on methadone. Cardiology consulted for elevated troponin. Allergies: Coded Allergies: No Known Allergies (Unverified , 02/05/18) Medication History Scheduled Albuterol Sulfate* (Albuterol Sulfate Mdi*), 2 PUFF INH Q6H Lidocaine (Lidocaine), 5 % TP DAILY Methadone Hcl* (Methadone*), Unknown Dose PO DAILY, (Reported) No Known Medications* (NKM - No Known Medications*), 0 ., (Reported) Patient History Healthcare decision maker Resuscitation status Full Code Advanced Directive on File Review of Systems Constitutional: Reports: no symptoms Eye: Reports: no symptoms ENT: Reports: no symptoms Respiratory: Reports: cough, orthopnea, shortness of breath Cardiovascular: Reports: no symptoms Gastrointestinal: Reports: no symptoms Genitourinary: Reports: no symptoms Musculoskeletal: Reports: no symptoms Skin: Reports: no symptoms Psychiatric: Reports: no symptoms Neurological: Reports: no symptoms Endocrine: Reports: no symptoms Hematologic/Lymphatic: Reports: no symptoms Physical Exam General Appearance: confused, mild distress Lines, tubes and drains: peripheral HEENT: normocephalic, atraumatic, anicteric Neck: non-tender, normal alignment, supple, normal inspection Respiratory/Chest: chest wall non-tender, respiratory distress, decreased breath sounds, accessory muscle use, crackles/rales Cardiovascular/Chest: normal peripheral pulses, normal rate Abdomen: normal bowel sounds, non tender, soft, no organomegaly Extremities: normal range of motion, non-tender, normal inspection, no calf tenderness Skin Exam: normal pigmentation, warm/dry, cyanotic Neurologic: tooling engineer II-XII grossly normal, no motor/sensory deficits Last 24 Hour Vital Signs Date Time Temp Pulse Resp B/P (MAP) Pulse Ox O2 Delivery O2 Flow Rate FiO2 06/16/19 08:00 97.7 82 17 112/63 (79) 93 06/16/19 04:00 2.0 06/16/19 04:00 Nasal Cannula 2.0 06/16/19 04:00 97.9 91 20 103/61 (75) 94 06/16/19 03:07 85 06/16/19 00:00 98.2 72 20 104/60 (75) 93 06/16/19 00:00 Nasal Cannula 2.0 06/15/19 23:27 84 06/15/19 20:00 98.1 86 20 104/73 (83) 94 06/15/19 20:00 2.0 06/15/19 20:00 Nasal Cannula 2.0 06/15/19 19:34 82 06/15/19 16:00 Nasal Cannula 2.0 06/15/19 16:00 2.0 06/15/19 16:00 74 06/15/19 12:00 88 06/15/19 12:00 2.0 06/15/19 12:00 Nasal Cannula 2.0 06/15/19 10:48 Nasal Cannula 2.0 Intake and Output 06/15/19 06/16/19 19:00 07:00 Intake Total 1217.278 ml 519.60 ml Balance 1217.278 ml 519.60 ml Intake Oral 0 ml 0 ml IV Total 1217.278 ml 519.60 ml # Voids 2 2 Laboratory Tests Test 06/15/19 17:30 06/16/19 02:45 Activated Partial Thromboplast Time 36 SEC (23-33) H 67 SEC (23-33) H Troponin I 0.815 ng/mL (0.000-0.056) 0.452 ng/mL (0.000-0.056) Sodium Level 137 MMOL/L (136-145) Potassium Level 4.6 MMOL/L (3.5-5.1) Chloride Level 101 MMOL/L (98-107) Carbon Dioxide Level 34 MMOL/L (21-32) H Anion Gap 2 mmol/L (5-15) L Blood Urea Nitrogen 16 mg/dL (7-18) Creatinine 0.7 MG/DL (0.55-1.30) Estimat Glomerular Filtration Rate > 60 mL/min (>60) Glucose Level 135 MG/DL (74-106) H Calcium Level 8.9 MG/DL (8.5-10.1) Phosphorus Level 3.6 MG/DL (2.5-4.9) Magnesium Level 1.9 MG/DL (1.8-2.4) Height (Feet): 5 Height (Inches): 3.00 Weight (Pounds): 103 Medications Current Medications Medications (Trade) Dose Ordered Sig/Mckayla Route PRN Reason Start Time Stop Time Status Last Admin Dose Admin Heparin Sodium/ Dextrose 500 ml @ 14.95 mls/ hr ADJUST PER PROTOCOL IV 06/15/19 18:15 07/15/19 18:14 06/15/19 18:45 Methadone HCl (Methadone HCl) 180 mg DAILY ORAL 06/15/19 15:00 06/22/19 14:59 06/15/19 16:06 Methylprednisolone Sodium Succinate (Solu-MEDROL) 40 mg EVERY 6 HOURS IVP 06/15/19 12:00 07/15/19 11:59 06/16/19 05:32 Sodium Chloride 1,000 ml @ 50 mls/hr Q20H IV 06/15/19 15:15 07/15/19 15:14 06/15/19 16:05 Assessment/Plan Status: stable Assessment/Plan: Assessment: Respiratory distress Elevated troponin/NSTEMI COPD Methadone use Plan: Troponin downtrending, no longer trend Telemetry to monitor for arrhythmias 48 hours heparin for conservative ACS Stress test prior to discharge Echocardiogram to evaluate LV function BiPAP prn Naif Hines MD Jun 16, 2019 09:41
--- NOTE | 2019-06-16 09:45 | Pulmonology Progress Note ---
Assessment/Plan Assessment/Plan IMPRESSION: 1. Likely non-STEMI. 2. Exacerbation of COPD. 3. Respiratory failure. 4. Chronic methadone usage. 5. Homeless. DISCUSSION: Seen by cardiology refusing biPAP Back on methadone On Iv heparin Await cardiology followup Continue steroids and HHN Subjective Interval Events: Seen by cardiology Constitutional: Reports: no symptoms HEENT: Repors: no symptoms Respiratory: Reports: no symptoms Cardiovascular: Reports: no symptoms Gastrointestinal/Abdominal: Reports: no symptoms Genitourinary: Reports: no symptoms Neurologic: Reports: no symptoms Allergies: Coded Allergies: No Known Allergies (Unverified , 02/05/18) Objective Last 24 Hour Vital Signs Date Time Temp Pulse Resp B/P (MAP) Pulse Ox O2 Delivery O2 Flow Rate FiO2 06/16/19 08:00 97.7 82 17 112/63 (79) 93 06/16/19 04:00 2.0 06/16/19 04:00 Nasal Cannula 2.0 06/16/19 04:00 97.9 91 20 103/61 (75) 94 06/16/19 03:07 85 06/16/19 00:00 98.2 72 20 104/60 (75) 93 06/16/19 00:00 Nasal Cannula 2.0 06/15/19 23:27 84 06/15/19 20:00 98.1 86 20 104/73 (83) 94 06/15/19 20:00 2.0 06/15/19 20:00 Nasal Cannula 2.0 06/15/19 19:34 82 06/15/19 16:00 Nasal Cannula 2.0 06/15/19 16:00 2.0 06/15/19 16:00 74 06/15/19 12:00 88 06/15/19 12:00 2.0 06/15/19 12:00 Nasal Cannula 2.0 06/15/19 10:48 Nasal Cannula 2.0 Intake and Output 06/15/19 06/16/19 19:00 07:00 Intake Total 1217.278 ml 519.60 ml Balance 1217.278 ml 519.60 ml Intake Oral 0 ml 0 ml IV Total 1217.278 ml 519.60 ml # Voids 2 2 General Appearance: no acute distress HEENT: normocephalic Respiratory/Chest: chest wall non-tender, lungs clear Cardiovascular: normal peripheral pulses, normal rate Abdomen: normal bowel sounds Laboratory Tests 06/15/19 17:30: Activated Partial Thromboplast Time 36H, Troponin I 0.815H 06/16/19 02:45: Activated Partial Thromboplast Time 67H, Troponin I 0.452H, Sodium Level 137, Potassium Level 4.6, Chloride Level 101, Carbon Dioxide Level 34H, Anion Gap 2L , Blood Urea Nitrogen 16, Creatinine 0.7, Estimat Glomerular Filtration Rate > 60, Glucose Level 135H, Calcium Level 8.9, Phosphorus Level 3.6, Magnesium Level 1.9 Current Medications Medications (Trade) Dose Ordered Sig/Mckayla Route PRN Reason Start Time Stop Time Status Last Admin Dose Admin Heparin Sodium/ Dextrose 500 ml @ 14.95 mls/ hr ADJUST PER PROTOCOL IV 06/15/19 18:15 07/15/19 18:14 06/15/19 18:45 Methadone HCl (Methadone HCl) 180 mg DAILY ORAL 06/15/19 15:00 06/22/19 14:59 06/15/19 16:06 Methylprednisolone Sodium Succinate (Solu-MEDROL) 40 mg EVERY 6 HOURS IVP 06/15/19 12:00 07/15/19 11:59 06/16/19 05:32 Sodium Chloride 1,000 ml @ 50 mls/hr Q20H IV 06/15/19 15:15 07/15/19 15:14 06/15/19 16:05 Mehdi Obrien MD Jun 16, 2019 09:45
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
[2019-06-16] MEDS ORDERED: Lexiscan 0.4mg/5ml syringe IV PRN (12:30)
--- NOTE | 2019-06-16 15:21 | NUR ---
RD ASSESSMENT & RECOMMENDATIONS SEE CARE ACTIVITY FOR COMPLETE ASSESSMENT DAILY ESTIMATED NEEDS: Needs based on Pulmonary, underweight/ 46.7kg 30-35 kcals/kg 0915-0440 total kcals 1-1.5 g protein/kg 47-70 g total protein 25-30 mL/kg 7576-5976 total fluid mLs NUTRITION DIAGNOSIS: Increased kcal/prot needs R/T underweight status as evidenced by pt @ 90% IBW, underweight BMI per guidelines. CURRENT DIET:CLEAR LIQUID DIET PO DIET RECOMMENDATIONS: REGULAR as tolerated ADDITIONAL RECOMMENDATIONS: * Advance diet in timely manner -> on CLD at this time, unknown reason * Standing weight for accurate CBW * Monitor BGs closely while on Solumedrol.
--- NOTE | 2019-06-16 17:19 | Cardiology Report ---
APPROVED REPORT EXAM: Two-dimensional and M-mode echocardiogram with Doppler and color Doppler. INDICATION LV FUNCTION M-Mode DIMENSIONS IVSd0.8 (0.7-1.1cm)Left Atrium (MM)2.7 (1.6-4.0cm) LVDd5.1 (3.5-5.6cm)Aortic Root2.0 (2.0-3.7cm) PWd0.8 (0.7-1.1cm)Aortic Cusp Exc.1.7 (1.5-2.0cm) IVSs1.4 cm LVDs3.8 (2.5-4.0cm) PWs1.4 cm Normal left ventricular chamber size. Mid to distal LV hypokinesis otherwise normal wall motion for other segments .Although the underlying cause may be coronary artery related , the possibility of stress induced cardiomyopathy should be kept in mind as well Left ventricular ejection fraction estimated to be 40%. No evidence left ventricular hypertrophy. No pericardial effusion. All other cardiac chamber sizes are within normal limits. Aortic valve calcification with normal cusp excursion . Mildly thickened mitral valve leaflets with normal excursion. Mild mitral annulus and aortic root calcification. Pulmonic valve not well visualized. IVC at normal size with physiologic collapse . A color flow and spectral Doppler study was performed and revealed: Mild aortic insufficiency . Mitral diastolic velocities suggest reduced left ventricular relaxation c/w mild LV diastolic dysfunction (Grade I ) Trace mitral regurgitation. Mild tricuspid regurgitation. Tricuspid systolic velocities suggests peak right ventricular systolic pressure of 28mmHg.
[2019-06-16] MEDS: Heparin 25,000u/D5W 500ml 500 ML IV SCH ×2 (18:37→19:44)
--- NOTE | 2019-06-16 19:12 | NUR ---
HAND-OFF: Report given to .LUCIA YT.
--- NOTE | 2019-06-16 19:30 | NUR ---
NURSE NOTES: Received report from KARSON Tillman, pt. in bed awake, A/O x's4- able to make needs known, no signs or symptoms of acute cardiac or respiratory distress noted, pt. appears to be sating well on 2L NC- at 98%. pt. comfort measures provided, call light within easy reach, bed alarm on, side rails up x's3 and safety brakes engaged, pt. aware to ask for assist when using bed velasquez. pt. has no IV at this time as it was d/c by patient- per endorsement- but new IV inserted by charge nurse Reji- LFA 22G- running Heparin drip at 16U/Kg/hr at 14.95 mls/hr- no signs of bleeding noted, pt. has also 1/2 NS running at 50cc/hr - IV intact and patent, safety measures continued, will continue with plan of care.
[2019-06-17] VITALS: BP 129/89
[2019-06-17 04:00] VITALS: BP 133/89
[2019-06-17] MEDS: Solu-MEDROL 40mg Inj IVP SCH ×3 (05:07→17:50)
--- NOTE | 2019-06-17 05:18 | NUR ---
NURSE NOTES: Spoke w/ Jacquie Pharmacist at [facility] regarding PTT results- per Jacquie sam to order PTT for 06/18/19 at 0400 timed- orders carried out.
--- NOTE | 2019-06-17 07:15 | NUR ---
NURSE NOTES: RECEIVED BED SIDE REPORT FROM JOHANA ENVELOPE STAMPING MACHINE OPERATOR OF NOC SHIFT. REC,D PT RESTING IN BED COMFORTABLY AWAKE AND ALERT ORIENTED X3.PT DENIES CP OR ANY DISCOMFORT AT THIS TIME.PT RECEIVING HEPARIN DRIP 16U/KG/HR INFUSING WELL CONNECTED ON LT FA H.L G# 22. IV SITE INTACT.FULL BODY ASSESSMENT DONE.NO ACUTE DISTRESS NOTED AT THIS TIME.WILL CONT TO MONITOR.
--- NOTE | 2019-06-17 07:16 | NUR ---
HAND-OFF: Report given to Primo Rn, pt. remains stable and no signs of distress noted.
[2019-06-17 08:00] VITALS: BP 133/78
--- NOTE | 2019-06-17 08:24 | Nephrology Progress Note ---
Assessment/Plan Status: stable Assessment/Plan: A/P 1) Asthma Exacerbation- per pulmonary mgmt - much improved 2) Hypomag/phos- replaced and corrected 3) dehydration- resolved. DC IVFs today 4) Opioid Dependancy Subjective Date patient seen: Jun 17, 2019 Time patient seen: 08:23 ROS Limited/Unobtainable: No Allergies: Coded Allergies: No Known Allergies (Unverified , 02/05/18) Subjective Patient breathing breathing resting comfortably Objective Last 24 Hour Vital Signs Date Time Temp Pulse Resp B/P (MAP) Pulse Ox O2 Delivery O2 Flow Rate FiO2 06/17/19 04:00 Nasal Cannula 2.0 06/17/19 04:00 97.5 76 18 133/89 (104) 100 06/17/19 04:00 3.0 06/17/19 03:27 73 06/17/19 00:00 Nasal Cannula 2.0 06/17/19 00:00 97.7 73 18 129/89 (102) 100 06/17/19 00:00 3.0 06/16/19 23:31 75 06/16/19 20:00 98.6 95 18 137/87 (104) 96 06/16/19 20:00 Nasal Cannula 2.0 06/16/19 20:00 2.0 06/16/19 19:28 91 06/16/19 16:00 83 06/16/19 16:00 2.0 06/16/19 16:00 97.9 94 17 132/84 (100) 91 06/16/19 16:00 Nasal Cannula 2.0 06/16/19 12:00 2.0 06/16/19 12:00 97.8 79 18 136/92 (107) 92 06/16/19 12:00 79 06/16/19 12:00 Nasal Cannula 2.0 Intake and Output 06/16/19 06/17/19 19:00 07:00 Intake Total 1544.35 ml 772.40 ml Balance 1544.35 ml 772.40 ml Intake Oral 750 ml IV Total 794.35 ml 772.40 ml # Voids 3 2 Laboratory Tests 06/16/19 10:45: Troponin I 0.311H 06/17/19 04:00: Activated Partial Thromboplast Time 69H Height (Feet): 5 Height (Inches): 3.00 Weight (Pounds): 103 General Appearance: no apparent distress EENT: normal ENT inspection Neck: normal alignment, supple Cardiovascular: normal rate Respiratory/Chest: expiratory wheezing Abdomen: non tender, soft Edema: no edema noted Arm (L), no edema noted Arm (R), no edema noted Leg (L), no edema noted Leg (R), no edema noted Pedal (L), no edema noted Pedal (R), no edema noted Generalized Jareth Arias MD Jun 17, 2019 08:24
--- NOTE | 2019-06-17 10:17 | NUR ---
PT AICD FIRED ,PT C/O,S OF HER BODY WAS SHAKING,DENIES CP AT THIS TIME,O2 SAT 94%,V/S STABLE.PLACED A TELEPHONE CALL TO DR CHRISTOPHER AND MADE AWARE AND NOTIFIED REGARDING PT AICD FIRED .PT AWAKE AND ALERT DENIES CP OR SOB AT THIS TIME. WILL CONT TO MONITOR.
[2019-06-17 12:00] VITALS: BP 130/83
--- NOTE | 2019-06-17 12:58 | Pulmonology Progress Note ---
Assessment/Plan Assessment/Plan IMPRESSION: 1. Likely non-STEMI. 2. Exacerbation of COPD. 3. Respiratory failure. 4. Chronic methadone usage. 5. Homeless. DISCUSSION: Seen by cardiology refusing biPAP Back on methadone On Iv heparin Await cardiology followup Continue steroids and HHN Subjective Interval Events: None new reportd Constitutional: Reports: no symptoms HEENT: Repors: no symptoms Respiratory: Reports: no symptoms Cardiovascular: Reports: no symptoms Gastrointestinal/Abdominal: Reports: no symptoms Genitourinary: Reports: no symptoms Allergies: Coded Allergies: No Known Allergies (Unverified , 02/05/18) Objective Last 24 Hour Vital Signs Date Time Temp Pulse Resp B/P (MAP) Pulse Ox O2 Delivery O2 Flow Rate FiO2 06/17/19 12:00 97.4 77 18 130/83 (99) 98 06/17/19 08:00 98.3 85 17 133/78 (96) 94 06/17/19 08:00 Nasal Cannula 2.0 06/17/19 08:00 3.0 06/17/19 07:44 80 06/17/19 04:00 Nasal Cannula 2.0 06/17/19 04:00 97.5 76 18 133/89 (104) 100 06/17/19 04:00 3.0 06/17/19 03:27 73 06/17/19 00:00 Nasal Cannula 2.0 06/17/19 00:00 97.7 73 18 129/89 (102) 100 06/17/19 00:00 3.0 06/16/19 23:31 75 06/16/19 20:00 98.6 95 18 137/87 (104) 96 06/16/19 20:00 Nasal Cannula 2.0 06/16/19 20:00 2.0 06/16/19 19:28 91 06/16/19 16:00 83 06/16/19 16:00 2.0 06/16/19 16:00 97.9 94 17 132/84 (100) 91 06/16/19 16:00 Nasal Cannula 2.0 Intake and Output 06/16/19 06/17/19 19:00 07:00 Intake Total 1544.35 ml 772.40 ml Balance 1544.35 ml 772.40 ml Intake Oral 750 ml IV Total 794.35 ml 772.40 ml # Voids 3 2 General Appearance: no acute distress HEENT: normocephalic Respiratory/Chest: chest wall non-tender, lungs clear Cardiovascular: normal peripheral pulses, normal rate Abdomen: normal bowel sounds Microbiology Date/Time Source Procedure Growth Status 06/15/19 06:30 Blood Blood Culture - Preliminary NO GROWTH AFTER 24 HOURS Resulted 06/15/19 06:15 Blood Blood Culture - Preliminary NO GROWTH AFTER 24 HOURS Resulted Laboratory Tests 06/17/19 04:00: Activated Partial Thromboplast Time 69H Current Medications Medications (Trade) Dose Ordered Sig/Mckayla Route PRN Reason Start Time Stop Time Status Last Admin Dose Admin Heparin Sodium/ Dextrose 500 ml @ 14.95 mls/ hr ADJUST PER PROTOCOL IV 06/15/19 18:15 07/15/19 18:14 06/16/19 19:44 Methadone HCl (Methadone HCl) 180 mg DAILY ORAL 06/15/19 15:00 06/22/19 14:59 06/17/19 09:34 Methylprednisolone Sodium Succinate (Solu-MEDROL) 40 mg EVERY 6 HOURS IVP 06/15/19 12:00 07/15/19 11:59 06/17/19 12:46 Regadenoson (Lexiscan) 0.4 mg ONCE PRN IV stress test 06/16/19 12:30 06/18/19 12:29 Mehdi Obrien MD Jun 17, 2019 12:58
--- NOTE | 2019-06-17 13:18 | NUR ---
CASE MANAGEMENT:REVIEW 68 YR OLD FEMALE BIBA FROM STREET CC: SOB SI: RESPIRATORY DISTRESS. COPD EXACERBATION ELEVATED TROPONIN 97.6 120 39 129/79 PLACED ON BIPAP TCK+396 TROPONIN(+) 1.824 IS: DUONEB HHN Q15 IV SOLUMEDROL 1L NS BOLUS X2 EPI IM CHEST XRAY BLOOD CX : TO STEP DOWN UNIT DCP: HOMELESS 06/16/19 SI: COPD EXACERBATION. RESPIRATORY DISTRESS 97.4 77 18 130/83 98% ON 3L/NC TROPONIN(+) 0.311 IS: HEPARIN GTT METHADONE PO QD : STEP DOWN UNIT PLAN: STRESS TEST
[2019-06-17 16:00] VITALS: BP 143/90
[2019-06-17] MEDS ORDERED: 1/2 NS 1000ml IV ONE (17:47)
--- NOTE | 2019-06-17 19:20 | NUR ---
NURSE NOTES: Received patient from KARSON HANEY. Will continue plan of care.
[2019-06-17 20:00] VITALS: BP 149/89
[2019-06-18] VITALS (8 sets, daily range): BP systolic 137–170; BP diastolic 78–111
[2019-06-18] MEDS: Solu-MEDROL 40mg Inj IVP SCH ×4 (00:12→17:15)
[2019-06-18] MEDS ORDERED: Heparin 25,000u/D5W 500ml 500 ML IV SCH (05:45)
[2019-06-18] MEDS ORDERED: Heparin 5000 units/ml inj IV SCH (05:45)
--- NOTE | 2019-06-18 07:15 | NUR ---
NURSE NOTES: Received pt from KARSON Muhammad. patient is awake, confused at times. Alert to name, and place. Pt removed BIPAP, placed on 2LNC. Wheezing heard bilateral b/s. Breathing even and unlabored. C/O of 10/10 generalized pain, methadone due this AM. LFA 22G running heparin gtt @ 20u/kg/hr. Next PTT due 1150am. Pt refused stress test still. Bed locked, alarmed and in lowest position. Will continue plan of care.
--- NOTE | 2019-06-18 07:27 | NUR ---
HAND-OFF: Report given to Elizabeth Worrell RN.
--- NOTE | 2019-06-18 08:30 | NUR ---
NURSE NOTES: Pt refused lab draw this AM. PMD notified. No new orders given.
--- NOTE | 2019-06-18 10:55 | Pulmonology Progress Note ---
Assessment/Plan Assessment/Plan IMPRESSION: 1. Likely non-STEMI. 2. Exacerbation of COPD. 3. Respiratory failure. 4. Chronic methadone usage. 5. Homeless. DISCUSSION: Seen by cardiology refusing biPAP Back on methadone On Iv heparin Await cardiology followup Continue steroids and HHN Subjective Interval Events: Refusing BiPAP, labs etc Constitutional: Reports: no symptoms HEENT: Repors: no symptoms Respiratory: Reports: no symptoms Cardiovascular: Reports: no symptoms Gastrointestinal/Abdominal: Reports: no symptoms Allergies: Coded Allergies: No Known Allergies (Unverified , 02/05/18) Objective Last 24 Hour Vital Signs Date Time Temp Pulse Resp B/P (MAP) Pulse Ox O2 Delivery O2 Flow Rate FiO2 06/18/19 09:45 96 Nasal Cannula 2.0 28 06/18/19 08:00 97.3 84 18 157/100 (119) 98 06/18/19 08:00 2.0 06/18/19 08:00 Nasal Cannula 2.0 06/18/19 07:35 86 06/18/19 04:54 70 15 98 Facial 50 06/18/19 04:00 50 06/18/19 04:00 Bi-pap 06/18/19 04:00 97.8 87 27 155/97 (116) 98 06/18/19 03:34 75 06/18/19 03:30 80 15 99 Facial 50 06/18/19 00:00 Nasal Cannula 2.0 06/18/19 00:00 97.9 80 20 150/90 (110) 96 06/17/19 23:27 77 06/17/19 20:00 Nasal Cannula 2.0 06/17/19 20:00 97 Nasal Cannula 2.0 28 06/17/19 20:00 2.0 06/17/19 20:00 97.9 72 20 149/89 (109) 98 06/17/19 19:39 74 06/17/19 16:00 Nasal Cannula 2.0 06/17/19 16:00 72 06/17/19 16:00 97.6 90 18 143/90 (107) 98 06/17/19 16:00 3.0 06/17/19 12:00 3.0 06/17/19 12:00 97.4 77 18 130/83 (99) 98 06/17/19 12:00 Nasal Cannula 2.0 06/17/19 12:00 71 Intake and Output 06/17/19 06/18/19 19:00 07:00 Intake Total 699.40 ml 156.968 ml Balance 699.40 ml 156.968 ml Intake Oral 520 ml IV Total 179.40 ml 156.968 ml # Voids 3 2 General Appearance: no acute distress HEENT: normocephalic Respiratory/Chest: chest wall non-tender, lungs clear Cardiovascular: normal peripheral pulses, normal rate Abdomen: normal bowel sounds Laboratory Tests 06/18/19 04:20: Activated Partial Thromboplast Time 47H Current Medications Medications (Trade) Dose Ordered Sig/Mckayla Route PRN Reason Start Time Stop Time Status Last Admin Dose Admin Heparin Sodium/ Dextrose 500 ml @ 18.688 mls/ hr ADJUST PER PROTOCOL IV 06/18/19 05:45 07/18/19 05:44 06/18/19 05:48 Methadone HCl (Methadone HCl) 180 mg DAILY ORAL 06/15/19 15:00 06/22/19 14:59 06/18/19 08:49 Methylprednisolone Sodium Succinate (Solu-MEDROL) 40 mg EVERY 6 HOURS IVP 06/15/19 12:00 07/15/19 11:59 06/18/19 05:44 Regadenoson (Lexiscan) 0.4 mg ONCE PRN IV stress test 06/16/19 12:30 06/18/19 12:29 Mehdi Obrien MD Jun 18, 2019 10:55
--- NOTE | 2019-06-18 11:13 | NUR ---
NURSE NOTES: Received orders to discontinue heparin drip, d/c BIPAP and d/c PTT draw at 1150am. Transfer to med/surg per Dr. Obrien. Read back given and verified.
--- NOTE | 2019-06-18 12:33 | NUR ---
TRANSFER TO FLOOR: Patient transferred to [facility], per Dr. Obrien. Report given to KARSON Pringle. Belongings checklist gone over with receiving nurse.
--- NOTE | 2019-06-18 12:40 | NUR ---
NURSE NOTES: Received pt from JACOB RN TERESE. Pt is confused and drowsy and orient x3. pt has NC 2LMP. pt has 2watch, one bracelet and clothes in her belongings. pt has intact iv access LFA 22G SL. all needs attended, bed is locked and is in the lowest position, call light within easy reach. will continue to monitor.
--- NOTE | 2019-06-18 16:30 | NUR ---
NURSE NOTES: Dr THOMSON notified about HTN and other V/S, order noted and carried out. will continue to monitor.
--- NOTE | 2019-06-18 19:27 | NUR ---
HAND-OFF: Report given to KARSON NAVARRO. Pt is awake and stable.
--- NOTE | 2019-06-18 19:28 | NUR ---
Nurse Notes Pt received from [facility]. Pt awake able to make needs known. sitting at bed side with nasal cannula at 2 liter intact. no c/o of respiratory distress noted Iv to LFA intact. pt able to void freely. pt instructed to call nurse before getting out of bed. Pt verbalized understanding. bed in lowest position call light in reach. will continue to provide patient care
[2019-06-19] VITALS: BP 133/85
[2019-06-19 04:00] VITALS: BP 140/80
[2019-06-19] MEDS: Solu-MEDROL 40mg Inj IVP SCH ×5 (04:46→23:48)
--- NOTE | 2019-06-19 07:28 | Pulmonology Progress Note ---
Assessment/Plan Assessment/Plan IMPRESSION: 1. Likely non-STEMI. 2. Exacerbation of COPD. 3. Respiratory failure. 4. Chronic methadone usage. 5. Homeless. DISCUSSION: Seen by cardiology refusing biPAP Back on methadone Discussed with cardiology Continue steroids and HHN Subjective Interval Events: Now on 4th floor Constitutional: Reports: no symptoms HEENT: Repors: no symptoms Respiratory: Reports: no symptoms Cardiovascular: Reports: no symptoms Gastrointestinal/Abdominal: Reports: no symptoms Allergies: Coded Allergies: No Known Allergies (Unverified , 02/05/18) Objective Last 24 Hour Vital Signs Date Time Temp Pulse Resp B/P (MAP) Pulse Ox O2 Delivery O2 Flow Rate FiO2 06/19/19 04:25 152/99 06/19/19 04:00 98.4 18 140/80 (100) 96 06/19/19 00:00 98.1 16 133/85 (101) 94 06/18/19 21:00 Nasal Cannula 2.0 06/18/19 20:00 98.2 17 137/92 (107) 84 06/18/19 19:45 96 Nasal Cannula 2.0 28 06/18/19 18:00 155/96 (115) 06/18/19 17:15 166/111 06/18/19 16:00 97.0 81 27 166/111 (129) 94 06/18/19 13:20 97.3 91 22 170/107 (128) 97 06/18/19 12:00 2.0 06/18/19 12:00 97.3 76 20 146/78 (100) 99 06/18/19 12:00 Nasal Cannula 2.0 06/18/19 09:45 96 Nasal Cannula 2.0 28 06/18/19 08:00 97.3 84 18 157/100 (119) 98 06/18/19 08:00 2.0 06/18/19 08:00 Nasal Cannula 2.0 06/18/19 07:35 86 Intake and Output 06/18/19 06/19/19 19:00 07:00 Intake Total 480 ml 480 ml Balance 480 ml 480 ml Intake Oral 480 ml 480 ml # Voids 3 3 # Bowel Movements 1 General Appearance: no acute distress HEENT: normocephalic Respiratory/Chest: chest wall non-tender, lungs clear Cardiovascular: normal peripheral pulses Laboratory Tests 06/19/19 06:03: Sodium Level [Pending], Potassium Level [Pending], Chloride Level [Pending], Carbon Dioxide Level [Pending], Blood Urea Nitrogen [Pending], Creatinine [ Pending], Estimat Glomerular Filtration Rate [Pending], Glucose Level [Pending] , Calcium Level [Pending] Current Medications Medications (Trade) Dose Ordered Sig/Mckayla Route PRN Reason Start Time Stop Time Status Last Admin Dose Admin Clonidine HCl (Catapres Tab) 0.1 mg Q6H PRN ORAL For High Blood Pressure 06/18/19 16:30 07/18/19 16:29 06/19/19 04:25 Methadone HCl (Methadone HCl) 180 mg DAILY ORAL 06/19/19 09:00 06/22/19 14:59 Methylprednisolone Sodium Succinate (Solu-MEDROL) 40 mg EVERY 6 HOURS IVP 06/18/19 18:00 07/15/19 11:59 06/19/19 04:46 Mehdi Obrien MD Jun 19, 2019 07:28
--- NOTE | 2019-06-19 07:50 | NUR ---
NURSE NOTES: Received report form KARSON Anguiano. Patient A&Ox2-3. In bed. On nasal cannula 2L/min. No labored breathing. Patient restless. RN reassured patient. Bed in lowest position with call light in reach. Will continue with plan of care.
[2019-06-19 08:00] VITALS: BP 133/71
[2019-06-19 08:01] LABS: ANION GAP 2 mmol/L (5-15); BLOOD UREA NITROGEN 19 mg/dL (7-18); CALCIUM 9.2 MG/DL (8.5-10.1); CARBON DIOXIDE 38 MMOL/L (21-32); CHLORIDE 99 MMOL/L (98-107); CREATININE 0.6 MG/DL (0.55-1.30); POTASSIUM 4.1 MMOL/L (3.5-5.1); SODIUM 139 MMOL/L (136-145)
--- NOTE | 2019-06-19 08:05 | NUR ---
Nurse notes report given to Anna aMrie
[2019-06-19 12:00] VITALS: BP 130/78
--- NOTE | 2019-06-19 15:19 | NUR ---
RD ASSESSMENT & RECOMMENDATIONS SEE CARE ACTIVITY FOR COMPLETE ASSESSMENT DAILY ESTIMATED NEEDS: Needs based on Pulmonary, underweight/ 46.7kg 30-35 kcals/kg 7978-2232 total kcals 1-1.5 g protein/kg 47-70 g total protein 25-30 mL/kg 7614-4937 total fluid mLs NUTRITION DIAGNOSIS: Increased kcal/prot needs R/T underweight status as evidenced by pt @ 90% IBW, underweight BMI per guidelines. CURRENT DIET:CARDIAC, soft easy chew PO DIET RECOMMENDATIONS: REGULAR as tolerated ADDITIONAL RECOMMENDATIONS: * Standing weight for accurate CBW -> weekly wt monitoring given underweight status * Monitor BGs closely while on Solumedrol. * Ensure Enlive 1 bottle once daily (350kcal/20g prot per bottle)
[2019-06-19 16:00] VITALS: BP 132/81
--- NOTE | 2019-06-19 16:10 | Cardiology Progress Note ---
Assessment/Plan Status: stable Assessment/Plan Assessment/Plan Status: stable Assessment/Plan: Assessment: Respiratory distress Elevated troponin/NSTEMI COPD Methadone use Plan: Troponin downtrending, no longer trend Telemetry to monitor for arrhythmias 48 hours heparin for conservative ACS completed Stress test prior to discharge Echocardiogram LVEF 40% BiPAP prn Steroid taper Subjective Cardiovascular: Reports: no symptoms Respiratory: Reports: no symptoms Gastrointestinal/Abdominal: Reports: no symptoms Genitourinary: Reports: no symptoms Subjective No acute events, troponin down trended, TTE reviewed. Heparin stopped. Objective Last 24 Hour Vital Signs Date Time Temp Pulse Resp B/P (MAP) Pulse Ox O2 Delivery O2 Flow Rate FiO2 06/19/19 07:40 97 Nasal Cannula 2.0 28 06/19/19 04:25 152/99 06/19/19 04:00 98.4 18 140/80 (100) 96 06/19/19 00:00 98.1 16 133/85 (101) 94 06/18/19 21:00 Nasal Cannula 2.0 06/18/19 20:00 98.2 17 137/92 (107) 84 06/18/19 19:45 96 Nasal Cannula 2.0 28 06/18/19 18:00 155/96 (115) 06/18/19 17:15 166/111 General Appearance: no apparent distress, alert EENT: PERRL/EOMI, normal ENT inspection, TMs normal, pharynx normal Neck: non-tender, normal alignment, supple, normal inspection, no JVD Cardiovascular: normal peripheral pulses, normal rate, regular rhythm Respiratory/Chest: chest wall non-tender, lungs clear Abdomen: normal bowel sounds, non tender, soft, no organomegaly Extremities: non-tender, normal inspection Neurologic: technology education teacher II-XII grossly normal, no motor/sensory deficits Intake and Output 06/18/19 06/19/19 18:59 06:59 Intake Total 498.688 ml 480 ml Balance 498.688 ml 480 ml Intake Oral 480 ml 480 ml IV Total 18.688 ml # Voids 3 3 # Bowel Movements 1 Laboratory Tests Test 06/19/19 06:03 Sodium Level 139 MMOL/L (136-145) Potassium Level 4.1 MMOL/L (3.5-5.1) Chloride Level 99 MMOL/L (98-107) Carbon Dioxide Level 38 MMOL/L (21-32) H Anion Gap 2 mmol/L (5-15) L Blood Urea Nitrogen 19 mg/dL (7-18) H Creatinine 0.6 MG/DL (0.55-1.30) Estimat Glomerular Filtration Rate > 60 mL/min (>60) Glucose Level 80 MG/DL (74-106) Calcium Level 9.2 MG/DL (8.5-10.1) Naif Hines MD Jun 19, 2019 16:10
[2019-06-19] MEDS ORDERED: Lexiscan 0.4mg/5ml syringe IV ONE (16:15)
--- NOTE | 2019-06-19 19:30 | NUR ---
HAND-OFF: Report given to KARSON Velasquez.
--- NOTE | 2019-06-19 19:32 | NUR ---
NURSE NOTES: Patient is in bed awake, alert and oriented. Breathing on N/C 2L/min. No acute distress noted. IV site on left fore arm is patent. Bed in low and locked position. Call light within reach. Will continue to monitor the patient.
[2019-06-19 20:00] VITALS: BP 134/72
[2019-06-20] VITALS: BP 137/76
--- NOTE | 2019-06-20 00:51 | NUR ---
NURSE NOTES: NURSE NOTES: Patient is in bed asleep. Breathing on N/C 2L/min.No acute distress noted. Evening medications medication administered as ordered. Assisted as needed. Bed in low and locked position. Call light within reach. Will continue to monitor the patient.
[2019-06-20 04:00] VITALS: BP 132/70
[2019-06-20] MEDS: Solu-MEDROL 40mg Inj IVP SCH (05:27)
--- NOTE | 2019-06-20 07:38 | NUR ---
HAND-OFF: Report given to Anna Marie TY.
--- NOTE | 2019-06-20 07:40 | NUR ---
NURSE NOTES: Receive report from KARSON Velasquez. Patient in bed sleeping. On nasal cannula 2L/min. No signs of distress or labored breathing. Iv intact, patent, and saline locked. Bed in lowest position with call light in reach. Will continue with plan of care.
[2019-06-20 08:00] VITALS: BP 142/76
--- NOTE | 2019-06-20 10:20 | Pulmonology Progress Note ---
Assessment/Plan Assessment/Plan IMPRESSION: 1. Likely non-STEMI. 2. Exacerbation of COPD. 3. Respiratory failure. 4. Chronic methadone usage. 5. Homeless. DISCUSSION: Seen by cardiology refusing biPAP Back on methadone Discussed with cardiology Continue steroids and HHN Subjective Interval Events: None new Constitutional: Reports: no symptoms HEENT: Repors: no symptoms Respiratory: Reports: no symptoms Cardiovascular: Reports: no symptoms Allergies: Coded Allergies: No Known Allergies (Unverified , 02/05/18) Objective Last 24 Hour Vital Signs Date Time Temp Pulse Resp B/P (MAP) Pulse Ox O2 Delivery O2 Flow Rate FiO2 06/20/19 04:00 98.0 87 19 132/70 (90) 97 06/20/19 00:00 98.0 76 19 137/76 (96) 96 06/19/19 21:00 Nasal Cannula 2.0 06/19/19 20:00 98.4 88 20 134/72 (92) 94 06/19/19 16:00 98.0 81 21 132/81 (98) 94 06/19/19 12:00 98.2 76 20 130/78 (95) 94 Intake and Output 06/19/19 06/20/19 19:00 07:00 Intake Total 1400 ml 1400 ml Output Total 850 ml Balance 1400 ml 550 ml Intake Oral 1400 ml 1400 ml Output Urine Total 850 ml # Voids 3 2 # Bowel Movements 1 General Appearance: no acute distress HEENT: normocephalic Respiratory/Chest: chest wall non-tender Cardiovascular: normal peripheral pulses Abdomen: normal bowel sounds Current Medications Medications (Trade) Dose Ordered Sig/Mckayla Route PRN Reason Start Time Stop Time Status Last Admin Dose Admin Clonidine HCl (Catapres Tab) 0.1 mg Q6H PRN ORAL For High Blood Pressure 06/18/19 16:30 07/18/19 16:29 06/19/19 04:25 Methadone HCl (Methadone HCl) 180 mg DAILY ORAL 06/19/19 09:00 06/22/19 14:59 06/20/19 09:20 Methylprednisolone Sodium Succinate (Solu-MEDROL) 40 mg EVERY 6 HOURS IVP 06/18/19 18:00 07/15/19 11:59 06/20/19 05:27 Mehdi Obrien MD Jun 20, 2019 10:20
[2019-06-20 12:00] VITALS: BP 153/98
[2019-06-20] MEDS: Albuterol/Ipratropium 3ml neb HHN SCH ×3 (12:32→23:56)
--- NOTE | 2019-06-20 13:17 | NUR ---
CASE MANAGEMENT: REVIEW 68Y/FEMALE BIBA FROM STREET CC: RESP DISTRESS SI: COPD EXACERBATION T 97.5 HR 120 RR 39 BP 129/79 SAT 92% BIPAP FIO2 50 GLUCOSE 232 TROP 1.824 BNP 1920 IS: NS BOLUS X1 EPINEPHRINE IM X1 SOLU MEDROL IV X1 MORPHINE IV X1 PATIENT ADMITTED TO MED/SURG UNIT 06/15/2019 DCP: PATIENT REPORTS HOMELESSNESS
[2019-06-20 16:00] VITALS: BP 144/82
[2019-06-20] MEDS ORDERED: 1/2 NS 1000ml IV ONE (16:07)
--- NOTE | 2019-06-20 19:15 | NUR ---
HAND-OFF: Report given to KARSON Gaviria.
--- NOTE | 2019-06-20 19:39 | NUR ---
NURSE NOTES: Received report from KARSON Thrasher. Patient is in bed, awake and alert x2. On nasal cannula 2L with no signs of distress or SOB. IV intact. Bed locked and in lowest position. Call light in reach, Will continue to monitor the patient.
[2019-06-20 20:00] VITALS: BP 152/103
[2019-06-21] VITALS: BP 130/85
[2019-06-21 04:00] VITALS: BP 132/80
[2019-06-21] MEDS: Albuterol/Ipratropium 3ml neb HHN SCH ×4 (07:33→23:59)
--- NOTE | 2019-06-21 07:37 | NUR ---
HAND-OFF: Report given to KARSON Rehman.
[2019-06-21 08:00] VITALS: BP 130/78
--- NOTE | 2019-06-21 08:04 | NUR ---
NURSE NOTES: received patient seated at the edge of bed, receives respiratory treatment. No complaint of pain or discomfort. IV access on LFA, saline locked. Bed locked at the lowest position possible, call light within easy reach, siderails up x2. Will continue to monitor patient and follow up with the plan of care.
--- NOTE | 2019-06-21 08:12 | Diagnostic Imaging Report ---
EXAM: XR Chest, 1 View CLINICAL HISTORY: ABN CHST TECHNIQUE: Frontal view of the chest. COMPARISON: June 15, 2019. FINDINGS: Cardiac silhouette is within normal limits. Mild central vascular congestion. Hyperinflated lungs, consistent with the COPD. Interval development of bilateral lower lobe patchy infiltrates. No pleural effusions. Senescent changes. Old deformities. IMPRESSION: Patchy infiltrates in the bilateral lower lobes, suspicious for pneumonia, new. No pleural effusions. COPD changes.
--- NOTE | 2019-06-21 08:47 | Pulmonology Progress Note ---
Assessment/Plan Assessment/Plan IMPRESSION: 1. Likely non-STEMI. 2. Exacerbation of COPD. 3. Respiratory failure. 4. Chronic methadone usage. 5. Homeless. DISCUSSION: Seen by cardiology Back on methadone Discussed with cardiology Continue steroids and N Social work consult for placement Subjective Interval Events: None new Constitutional: Reports: no symptoms HEENT: Repors: no symptoms Respiratory: Reports: no symptoms Cardiovascular: Reports: no symptoms Gastrointestinal/Abdominal: Reports: no symptoms Allergies: Coded Allergies: No Known Allergies (Unverified , 02/05/18) Objective Last 24 Hour Vital Signs Date Time Temp Pulse Resp B/P (MAP) Pulse Ox O2 Delivery O2 Flow Rate FiO2 06/21/19 07:35 95 Nasal Cannula 2.0 28 06/21/19 07:34 98 24 96 Nasal Cannula 2.0 28 102 26 76 06/21/19 04:00 98.6 86 19 132/80 (97) 98 06/21/19 00:04 76 18 97 Nasal Cannula 2.0 28 74 20 94 06/21/19 00:00 98.9 70 19 130/85 (100) 98 06/20/19 21:41 152/103 06/20/19 20:32 Nasal Cannula 2.0 06/20/19 20:00 99.5 87 19 152/103 (119) 96 06/20/19 19:27 77 20 99 Nasal Cannula 2.0 28 76 19 95 06/20/19 19:17 95 Nasal Cannula 2.0 28 06/20/19 16:00 97.6 78 20 144/82 (102) 98 06/20/19 12:42 81 20 99 Nasal Cannula 2.0 28 79 22 98 06/20/19 12:32 79 22 98 Nasal Cannula 2.0 28 06/20/19 12:32 98 Nasal Cannula 2.0 28 06/20/19 12:00 97.5 73 19 153/98 (116) 98 06/20/19 10:13 Nasal Cannula 2.0 Intake and Output 06/20/19 06/21/19 19:00 07:00 Intake Total 1000 ml 480 ml Balance 1000 ml 480 ml Intake Oral 1000 ml 480 ml # Voids 6 3 # Bowel Movements 1 General Appearance: no acute distress HEENT: normocephalic Respiratory/Chest: chest wall non-tender, lungs clear Cardiovascular: normal peripheral pulses Current Medications Medications (Trade) Dose Ordered Sig/Mcakyla Route PRN Reason Start Time Stop Time Status Last Admin Dose Admin Albuterol/ Ipratropium (Albuterol/ Ipratropium) 3 ml Q6HRT HHN 06/20/19 10:30 06/25/19 10:29 06/21/19 07:33 Clonidine HCl (Catapres Tab) 0.1 mg Q6H PRN ORAL For High Blood Pressure 06/18/19 16:30 07/18/19 16:29 06/20/19 21:41 Methadone HCl (Methadone HCl) 180 mg DAILY ORAL 06/19/19 09:00 06/22/19 14:59 06/20/19 09:20 Prednisone (predniSONE) 30 mg DAILY@1800 ORAL 06/20/19 18:00 07/20/19 10:29 06/20/19 17:46 Mehdi Obrien MD Jun 21, 2019 08:47
[2019-06-21 10:39] LABS: BASOPHILS % (AUTO) 1.5 % (0.0-2.0); EOSINOPHILS % (AUTO) 0.1 % (0.0-3.0); HEMATOCRIT 53.4 % (37.0-47.0); HEMOGLOBIN 17.4 G/DL (12.0-16.0); LYMPHOCYTES % (AUTO) 9.6 % (20.0-45.0); MEAN CORPUSCULAR VOLUME 94 FL (80-99); MONOCYTES % (AUTO) 10.8 % (1.0-10.0); NEUTROPHILS % (AUTO) 78.1 % (45.0-75.0); PLATELET COUNT 312 K/UL (150-450); RED BLOOD COUNT 5.69 M/UL (4.20-5.40); RED CELL DISTRIBUTION WIDTH 10.9 % (11.6-14.8); WHITE BLOOD COUNT 15.6 K/UL (4.8-10.8)
[2019-06-21 10:52] LABS: ANION GAP 4 mmol/L (5-15); BLOOD UREA NITROGEN 11 mg/dL (7-18); CALCIUM 9.1 MG/DL (8.5-10.1); CARBON DIOXIDE 37 MMOL/L (21-32); CHLORIDE 99 MMOL/L (98-107); CREATININE 0.6 MG/DL (0.55-1.30); POTASSIUM 3.7 MMOL/L (3.5-5.1); SODIUM 140 MMOL/L (136-145)
[2019-06-21 12:00] VITALS: BP 134/82
[2019-06-21 16:00] VITALS: BP 131/76
--- NOTE | 2019-06-21 18:07 | NUR ---
NURSE NOTES: patient refused prednisone 30mg PO. Nurse explained reason it would benefit her for taking this med, and possible outcome. patient still refused it.
--- NOTE | 2019-06-21 19:13 | NUR ---
HAND-OFF: Report given to KARSON Singer.
--- NOTE | 2019-06-21 19:42 | NUR ---
NURSE NOTES: Patient is in bed and asleep. On nasal cannula 2L with no signs of distress or SOB. IV intact. Bed locked and in lowest position. Call light in reach, Will continue to monitor the patient.
[2019-06-21 20:00] VITALS: BP 150/93
[2019-06-22] VITALS: BP 134/84
[2019-06-22 04:00] VITALS: BP 145/93
--- NOTE | 2019-06-22 07:12 | NUR ---
HAND-OFF: Report given to KARSON Rehman.
--- NOTE | 2019-06-22 07:36 | NUR ---
NURSE NOTES: received patient sound asleep, no sign of pain or discomfort. LFA IV access, saline locked. Bed locked at the lowest position possible, call light within easy reach, siderails up x2. Will continue to monitor patient and follow up with the plan of care.
[2019-06-22] MEDS: Albuterol/Ipratropium 3ml neb HHN SCH ×2 (07:40→13:48)
[2019-06-22 08:00] VITALS: BP 127/77
--- NOTE | 2019-06-22 09:35 | Pulmonology Progress Note ---
Assessment/Plan Assessment/Plan IMPRESSION: 1. Non-STEMI. 2. Exacerbation of COPD. 3. Respiratory failure. Resolved. 4. Chronic methadone usage. 5. Homeless. DISCUSSION: Seen by cardiology Back on methadone Discussed with cardiology Continue steroids and N Social work consult for placement Subjective Interval Events: None new Constitutional: Reports: no symptoms HEENT: Repors: no symptoms Respiratory: Reports: dry cough, shortness of breath Cardiovascular: Reports: no symptoms Gastrointestinal/Abdominal: Reports: no symptoms Allergies: Coded Allergies: No Known Allergies (Unverified , 02/05/18) Objective Last 24 Hour Vital Signs Date Time Temp Pulse Resp B/P (MAP) Pulse Ox O2 Delivery O2 Flow Rate FiO2 06/22/19 07:40 Nasal Cannula 3.0 32 06/22/19 07:40 94 Nasal Cannula 3.0 32 06/22/19 04:00 97.0 87 19 145/93 (110) 94 06/22/19 00:00 98.2 95 19 134/84 (101) 96 06/22/19 00:00 87 20 99 Nasal Cannula 2.0 28 88 20 96 06/21/19 20:11 Nasal Cannula 2.0 06/21/19 20:00 98.2 94 20 150/93 (112) 94 06/21/19 19:52 89 20 98 Nasal Cannula 2.0 28 84 20 94 06/21/19 19:51 94 Nasal Cannula 2.0 28 06/21/19 16:00 98.7 89 20 131/76 (94) 99 06/21/19 12:40 101 20 97 Nasal Cannula 2.0 28 98 22 91 06/21/19 12:00 98.2 86 20 134/82 (99) 98 Intake and Output 06/21/19 06/22/19 19:00 07:00 Intake Total 1000 ml 240 ml Balance 1000 ml 240 ml Intake Oral 1000 ml 240 ml # Voids 6 2 General Appearance: no acute distress HEENT: normocephalic Respiratory/Chest: chest wall non-tender, lungs clear Cardiovascular: normal peripheral pulses Laboratory Tests 06/21/19 10:15: White Blood Count 15.6H, Red Blood Count 5.69H, Hemoglobin 17.4H, Hematocrit 53.4H, Mean Corpuscular Volume 94, Mean Corpuscular Hemoglobin 30.7, Mean Corpuscular Hemoglobin Concent 32.7, Red Cell Distribution Width 10.9L, Platelet Count 312, Mean Platelet Volume 7.3, Neutrophils (%) (Auto) 78.1H, Lymphocytes (%) (Auto) 9.6L, Monocytes (%) (Auto) 10.8H, Eosinophils (%) (Auto) 0.1, Basophils (%) (Auto) 1.5, Sodium Level 140, Potassium Level 3.7, Chloride Level 99, Carbon Dioxide Level 37H, Anion Gap 4L, Blood Urea Nitrogen 11, Creatinine 0.6, Estimat Glomerular Filtration Rate > 60, Glucose Level 86, Calcium Level 9.1 Current Medications Medications (Trade) Dose Ordered Sig/Mckayla Route PRN Reason Start Time Stop Time Status Last Admin Dose Admin Albuterol/ Ipratropium (Albuterol/ Ipratropium) 3 ml Q6HRT HHN 06/20/19 10:30 06/25/19 10:29 06/21/19 23:59 Clonidine HCl (Catapres Tab) 0.1 mg Q6H PRN ORAL For High Blood Pressure 06/18/19 16:30 07/18/19 16:29 06/20/19 21:41 Methadone HCl (Methadone HCl) 180 mg DAILY ORAL 06/19/19 09:00 06/22/19 14:59 06/21/19 09:26 Prednisone (predniSONE) 30 mg DAILY@1800 ORAL 06/20/19 18:00 07/20/19 10:29 06/20/19 17:46 Mehdi Obrien MD Jun 22, 2019 09:35
[2019-06-22] MEDS ORDERED: CLONIDINE0.1 MG ORAL (09:37)
[2019-06-22] MEDS ORDERED: METHADONE HCL10 MG ORAL (09:37)
[2019-06-22] MEDS ORDERED: DUONEB 0.5-3(2.53 ML HHN (09:37)
[2019-06-22] MEDS ORDERED: PREDNISONE10 MG ORAL (09:37)
--- NOTE | 2019-06-22 10:28 | NUR ---
DISCHARGE PLANNING DISCHARGE TO SNF ORDER NOTED FAXED TO THREE FACILITIES AWAIT RESPONSE MIGHT BE A DIFFICULT PLACEMENT SINCE PATIENT IS ON METHADONE
[2019-06-22 12:00] VITALS: BP 139/93
--- NOTE | 2019-06-22 13:55 | Cardiology Report ---
APPROVED REPORT EKG Measurement Heart [id number] Normal sinus rhythm Cannot rule out Anterior infarct, age undetermined Abnormal ECG
--- NOTE | 2019-06-22 14:34 | NUR ---
DISCHARGE PLANNED PATIENT HAS BEEN ACCEPTED TO AND IS GOING TO [facility] ROOM 105[address] SKILLED T: [phone] FOR NURSE TO NURSE REPORT [facility] HAS BEEN ARRANGED FOR [address] BURCH WILL FOLLOW PATIENT AT SNF
--- NOTE | 2019-06-22 18:11 | NUR ---
NURSE NOTES: patient is being discharged to [facility] SNF, report given to DOMINGUEZ Cruz from the facility. In stable condition and VS, no complaint of pain or discomfort. Patient signed off belongings list and left with all her belongings. IV access was dc'd, no bleeding noted after site compression. No NOK list or provided by pt. Given discharge packet to EMT José Luis Lopez from [facility]. Not done homeless checklist as patient is going to a SNF.
--- NOTE | 2019-06-23 10:33 | Discharge Summary ---
Discharge Summary Discharge Summary Oziel Nunez DATE OF ADMISSION: 06/15/2019 DATE OF DISCHARGE: 06/22/2019 DISCHARGED BY: Dr. Obrien REASON FOR ADMISSION: [] 68 years old female with past medical history of asthma, chronic methadone use, who was in the emergency room prior to this presentation daily for a sign AGAINST MEDICAL ADVICE, presented by EMS due to dyspnea. Patient received bronchodilator therapy. Upon evaluation patient was tachycardic with heart rate of 120. Laboratory work-up revealed no leukocytosis stable hemoglobin hematocrit. Magnesium 1.7. Troponin elevated 1.824. proBNP 1920. AST 45 ALT 30. EKG revealed sinus rhythm no acute ischemic changes. Chest x-ray demonstrated no acute cardiopulmonary pathology. [place] in the emergency department patient received aspirin and admitted for further management. CONSULTANTS: change control manager Dr. Hines slider assembler Dr. Arias [facility]SE: Patient admitted to monitored floor. [place] followed. Patient started on and received 48 hours of heparin for conservative ACS treatment. Echocardiogram demonstrated mid to distal LV hypokinesis, otherwise normal wall motion. Left ventricular ejection fraction estimated to be 40%. No evidence of left ventricular hypertrophy. No pericardial effusion. Right ventricular systolic pressure 28. Troponin downgraded :second troponin 0.815 , the last one - 0.311. [place] recommended stress test, which can be done as outpatient. Patient started on IV steroids with gradual tapering down. Bronchodilator therapy provided. Methadone maintenance dose continued. As patient clinically improved, she was able to be weaned from the BiPAP. Supplemental oxygen titrated to keep pulse oximetry above 92%. [facility] [employer] [facility] followed. Renal parameters and electrolytes were closely monitored. Magnesium and phosphorus were replaced. Dehydration resolved. IV fluids discontinued. Patient clinically stabilized and was ready for discharge. Placement was arranged at [facility] half-way facility. Patient was stable for discharge. FINAL DIAGNOSES: Elevated troponin, likely NSTEMI COPD/asthma exacerbation Respiratory failure-resolved Dehydration Hypomagnesemia Chronic methadone use Homeless DISCHARGE MEDICATIONS: See Medication Reconciliation list. DISCHARGE INSTRUCTIONS: Patient was discharged to the half-way facility. Follow up with medical doctor at the facility. I have been assigned to dictate discharge summary for this account. I was not involved in the patient's management. Nalini Chen NP Jun 23, 2019 10:33
== END 2019-06-22 18:25 | DRG 280 ==
LOC: EDBD 05:41 → EMR 06:17 → 2W 06:36 → EDBEDREQ 08:10 → 4E 06-18 12:11
DX: I21.4 Non-ST elevation (NSTEMI) myocardial infarction (principal); J96.90 Respiratory failure, unspecified, unspecified whether with hypoxia or hypercapnia; J44.1 Chronic obstructive pulmonary disease with (acute) exacerbation; F11.20 Opioid dependence, uncomplicated; Z59.0 Homelessness; E83.42 Hypomagnesemia; E86.0 Dehydration
CPT/HCPCS: 36415; 71045; 80048; 80053; 82550; 83690; 83735; 83880; 84100; 84484; 85025; 85610; 85730; 87040; 93005; 93306; 94640; 94660; 94664; 96361; 96372; 96374; 96375; 99285; J2405; J7030; J7620

== ENCOUNTER 2019-06-26 17:38 | Inpatient (IN) | payer MEDICARE, OTHER ==
[~2019-06-26] VITALS: Ht 127 cm; Wt 44.9 kg
[~2019-06-26 17:38] MED LIST changes: +CLONIDINE0.1 MG ORAL; +DUONEB 0.5-3(2.53 ML HHN; +METHADONE HCL10 MG ORAL; +PREDNISONE10 MG ORAL
[2019-06-26 17:45] VITALS: BP 143/82
--- NOTE | 2019-06-26 17:53 | NUR ---
ED Nurse Note:pt. was BIBA from the SNF with COPD exacerbation and opoids withdrawals symptoms, she was not given her usual methadone dose today, pt. is A/Ox3 placed on cardiac rehabilitation program director and O2 2L via N/C, seen by ER MD but refused to answer any questions
--- NOTE | 2019-06-26 18:01 | NUR ---
ED Nurse Note:pt. refused blood draw and meds, ER MD was notified
[2019-06-26] MEDS ORDERED: DOCUSATE SODIU100 MG ORAL (18:09)
[2019-06-26] MEDS ORDERED: ACETAMINOPHEN325 M1 ORAL ×2 (18:09→21:55)
[2019-06-26] MEDS ORDERED: GERI-KOT8.6 MG PO (18:09)
--- NOTE | 2019-06-26 18:44 | NUR ---
ED Nurse Note:pt. will be admited to med surge floor without lab draw per ER MD agreement
--- NOTE | 2019-06-26 19:05 | NUR ---
HAND-OFF: Report given to Joe.
[2019-06-26 19:07] VITALS: BP 135/71
--- NOTE | 2019-06-26 19:08 | NUR ---
ED Nurse Note: Received report from Annalee TY.
--- NOTE | 2019-06-26 19:20 | Emergency Room Report ---
History of Present Illness General Chief Complaint: Altered Mental Status Source: Patient Present Illness HPI 69-year-old female presents ED for evaluation. Brought in by EMS from retirement facility. Patient walked on to the street because she was upset. States that she did not receive her methadone today. Is on continuous daily methadone. Upon arrival patient is agitated and screaming. States she does not want to be here. Is on oxygen. History of COPD. Denies cough. Denies fevers or chills. Denies shortness of breath. Unwilling to provide any additional history at this time. No other aggravating relieving factors. Denies any other associated symptoms Allergies: Coded Allergies: No Known Allergies (Unverified , 02/05/18) Patient History Past Medical History: COPD Past Surgical History: none Pertinent Family History: none Social History: Reports: smoking, drug use; Denies: alcohol use Now: No Immunizations: UTD Reviewed Nursing Documentation: PMH: Agreed; PSxH: Agreed Nursing Documentation-PMH Past Medical History: No History, Except For Hx Cardiac Problems: No Hx Asthma: Yes Hx Neurological Problems: No - methadone dependent Review of Systems All Other Systems: negative except mentioned in HPI Physical Exam Vital Signs Date Time Temp Pulse Resp B/P (MAP) Pulse Ox O2 Delivery O2 Flow Rate FiO2 06/26/19 17:33 98.2 80 24 143/82 (102) 92 Nasal Cannula 2.0 Sp02 EP Interpretation: reviewed, normal General Appearance: no apparent distress, alert, GCS 15, non-toxic, cachetic, thin Head: normocephalic, atraumatic Eyes: bilateral eye normal inspection, bilateral eye PERRL ENT: hearing grossly normal, normal pharynx, no angioedema, normal voice Neck: full range of motion, supple/symm/no masses Respiratory: chest non-tender, speaking full sentences, wheezing Cardiovascular #1: regular rate, rhythm, no edema Cardiovascular #2: 2+ carotid (R), 2+ carotid (L), 2+ radial (R), 2+ radial (L) , 2+ dorsalis pedis (R), 2+ dorsalis pedis (L) Gastrointestinal: normal bowel sounds, non tender, soft, non-distended, no guarding, no rebound Rectal: deferred Genitourinary: normal inspection, no CVA tenderness Musculoskeletal: back normal, gait/station normal, normal range of motion, non- tender Neurologic: alert, oriented x3, responsive, motor strength/tone normal, sensory intact, speech normal, other - agitated Psychiatric: judgement/insight normal, memory normal, mood/affect normal, no suicidal/homicidal ideation, other - agitated Reflexes: 3+ bicep (R), 3+ bicep (L), 3+ tricep (R), 3+ tricep (L), 3+ knee (R) , 3+ knee (L) Skin: other - see nrusing skin notes Lymphatic: no adenopathy Medical Decision Making Diagnostic Impression: Primary Impression: Methadone dependence Additional Impressions: COPD (chronic obstructive pulmonary disease) Qualified Codes: J44.9 - Chronic obstructive pulmonary disease, unspecified Encephalopathy ER Course 69-year-old female presents ED with agitated behavior at [facility] differential - dementia, psychosis, delerium Placed on stretcher. After initial history physical exam reveals elderly female in no acute distress. Patient is not answering questions fully. States she is upset that she was brought to the hospital. Would like to be taken back to her facility. EMS report patient was not given her methadone dose today and became very upset. athletic director of facility require that patient be transported to hospital for further evaluation Patient does not appear to be delirious. He is oriented x3. Is not answering questions because she is upset. No signs of dementia. Vitals stable. No signs of infection. Patient is refusing all lab work. Patient has capacity to make her own decisions. patient would benefit from psychiatric evaluation. patient will be admitted to Dr Rogel's service Diagnosis - methadone dependence, COPD, encephalopathy admitted to floor in serious condition Last Vital Signs Date Time Temp Pulse Resp B/P (MAP) Pulse Ox O2 Delivery O2 Flow Rate FiO2 06/26/19 19:07 98.5 88 19 135/71 95 Nasal Cannula 3.0 Status: improved Disposition: ADMITTED INPATIENT Condition: Serious Referrals: NON PHYSICIAN (PCP) Monroe Solis MD Jun 26, 2019 19:20
--- NOTE | 2019-06-26 19:26 | NUR ---
ED Nurse Note: RT at bedside for breathing tx.
[2019-06-26] MEDS: Albuterol ud Inhalation HHN SCH ×3 (19:27→19:31)
[2019-06-26] MEDS: Ipratropium 0.02% Inh Soln 2.5ml UD HHN SCH ×2 (19:27→19:30)
--- NOTE | 2019-06-26 20:05 | NUR ---
ED Nurse Note: Patient able to walk to the bathroom with steady gait.
--- NOTE | 2019-06-26 20:19 | NUR ---
ED Nurse Note: Report given to Olivia TY.
--- NOTE | 2019-06-26 20:27 | NUR ---
ED Nurse Note: MRSA Swab done but refused CRE and VRE swab.
[2019-06-26 20:51] VITALS: BP 131/74
--- NOTE | 2019-06-26 20:51 | NUR ---
TRANSFER TO FLOOR: Patient transferred to [facility] as ordered. Report given to Olivia TY. Pt alert and oriented, verbally responsive. Afberile. 97% on O2 tx @ 2L/min. No SOB. Breathing even and unlabored. No IV line. VSS. Belongings list done. Med recon done. All belongings was given to the patient.
[2019-06-26 21:30] VITALS: BP 135/72
--- NOTE | 2019-06-26 21:50 | NUR ---
NURSE NOTES: RECEIVED PATIENT FROM ER. PATIENT ALERT, ORIENTED, VERBALLY RESPONSIVE. REFUSED TO WEAR HOSPITAL GOWN AND FOR NURSE TO DO SKIN ASSESSMENT. NURSE TRIED TO EXPLAIN PURPOSE, BUT PATIENT STILL REFUSED. PER PATIENT SHE ONLY WANTS TO SLEEP, OXYGEN, AND HER METHADONE. NO S/S RESPIRATORY DISTRESS NOTED. PATIENT AMBULATORY BED IN LOWEST POSITION, CALL LIGHT WITHIN REACH, BED ALARM ON, WILL CONTINUE TO MONITOR. LEFT MESSAGE FOR DR. BURCH REGARDING ADMISSION ORDERS.
[2019-06-26] MEDS ORDERED: ALBUTEROL2.5 MG/3 M INH (21:55)
[2019-06-26] MEDS ORDERED: PREDNISONE20 MG ORAL (21:56)
[2019-06-26] MEDS: D5 1/2NS 1,000 ML IV SCH (22:00)
[2019-06-26] MEDS ORDERED: Albuterol ud Inhalation HHN PRN (22:00)
[2019-06-26] MEDS ORDERED: Potassium Chloride 10 MEQ in D5 1/2NS 1,000 ML IV SCH (23:00)
--- NOTE | 2019-06-26 23:00 | NUR ---
NURSE NOTES: CALLED [facility] AND SPOKE WITH DOMINGUEZ SANTACRUZ, AND ASKED ABOUT PATIENT'S METHADONE. NOAM STATED THAT DR. BURCH DIDN'T ORDER THE PATIENT'S 180 MG METHADONE, WHICH WAS WHAT SHE WAS PREVIOUSLY GETTING AT HER METHADONE CLINIC. ALSO PER NOAM, METHADONE CLINIC IS CALLED [facility] . NURSE ATTEMPTED TO CONTACT THE METHADONE CLINIC, BUT THERE WAS NO ANSWER. CHARGE NURSE AWARE. WILL ENDORSE TO THE NEXT SHIFT.
[2019-06-27 04:00] VITALS: BP 126/66
--- NOTE | 2019-06-27 07:13 | NUR ---
HAND-OFF: Report given to SYBIL MENDEZ RN. PATIENT IN STABLE CONDITION.
--- NOTE | 2019-06-27 07:14 | NUR ---
NURSE NOTES: Received patient awake alert and oriented, sitting up comfortably in bed. No IV at this time. Patient refused. MD aware. Nasal cannula at 2l/min. Bed at lowest level with 3 side rails up. Call light within reach. In no apparent distress at this time. Will continue to monitor.
[2019-06-27 08:00] VITALS: BP 143/78
[2019-06-27] MEDS: Docusate 100mg cap ORAL SCH ×2 (09:15→18:00)
--- NOTE | 2019-06-27 11:15 | History and Physical Report ---
DATE OF ADMISSION: 06/26/2019 DATE AND TIME SEEN: 06/27/2019 at 9 a.m. CONSULTANTS: 1. Caterina Mcintosh M.D. 2. Royce Aguayo M.D. 3. Mehdi Obrien M.D. CHIEF COMPLAINT: Agitation, opiate withdrawal, chronic pain, and shortness of breath. BRIEF HISTORY: This is a 69-year-old female from [facility], presented with above-mentioned diagnoses. Apparently, she did not receive her methadone. She became very agitated, slightly confused, and slight short of breath, came to [place], diagnosed with the above, admitted to medical floor for further treatment. Currently, O2 NC, calm in bed, feeling better, receiving medications, no complaint. REVIEW OF SYSTEMS: No chest pain. Slight short of breath. No nausea, vomiting, or diarrhea. PAST MEDICAL HISTORY: Include COPD, methadone dependence, encephalopathy, asthma, and history of VA. PAST SURGICAL HISTORY: None. MEDICATIONS: Include Senokot, Colace, prednisone, methadone, potassium, Tylenol, and albuterol. ALLERGIES: Denies. SOCIAL HISTORY: No smoking. No alcohol. No intravenous drug abuse. FAMILY HISTORY: Noncontributory. PHYSICAL EXAMINATION: GENERAL: Calm in bed, oriented x2, in no acute distress. VITAL SIGNS: Temperature 97 degrees, pulse 75, respirations 16, and blood pressure 142/78. CARDIOVASCULAR: No murmurs. LUNGS: Distant and clear. ABDOMEN: Bowel sounds positive. Nontender. Nondistended. EXTREMITIES: No cyanosis, clubbing, or edema. NEUROLOGIC: The patient moves all extremities, slightly weak. LABORATORY AND DIAGNOSTIC DATA: Labs at this time are pending. ASSESSMENT: 1. Chronic pain. 2. Shortness of breath. 3. Agitation. 4. Opiate dependence. 5. Muscle weakness. 6. Asthma. 7. History of VA. PLAN: 1. O2 and pulmonary treatment. 2. Pain control. 3. Resume home medications. 4. PT and dietary evaluation. 5. CBC and BMP in the morning. Nam Rogel D.O. DR: RUFINO/CHRIS JOB#: [id number] CC:
[2019-06-27 12:00] VITALS: BP 123/95
--- NOTE | 2019-06-27 12:09 | NUR ---
PT Note Acknowledged order for PT eval. Per patient, she is ambulatory without any difficulty. Patient's statement is corroborated by nursing staff. Patient does not need any physical therapy at this time.
--- NOTE | 2019-06-27 12:30 | NUR ---
CASE MANAGEMENT: REVIEW 69Y/FEMALE BIBA FROM [facility] CC: AMS SI: ENCEPHALOPATHY T 98.2 HR 80 RR 24 BP 143/82 SAT 92% NC/2L IS: PREDNISONE PO X1 ATROVENT HHN X1 ALBUTEROL HHN X1 PATIENT ADMITTED TO MED/SURG UNIT06/26/2019 DCP: PATIENT IS FROM [facility]
--- NOTE | 2019-06-27 13:30 | Consultation ---
DATE OF CONSULTATION: 06/27/2019 PULMONARY CONSULTATION CONSULTING PHYSICIAN: Mehdi Obrien M.D. HISTORY OF PRESENT ILLNESS: This is a 69-year-old female, who was admitted recently to [facility] after being admitted to this hospital with respiratory failure. She in the past is homeless. She has also been a chronic methadone user, using 180 mg of methadone on daily basis. After she was successfully treated in this hospital with steroids and antibiotics, she was discharged to [facility]. The patient also had evidence of an acute DE previous admission and received IV heparin and cardiac consultation. She re-presented after having not received methadone as per her liking. This morning, she received methadone, is feeling better. She states she is back to her baseline. PAST HISTORY: COPD, chronic methadone use, and recent DE. HOME MEDICATIONS: Methadone only. ALLERGIES: None. REVIEW OF SYSTEMS: The patient denies any headaches, hematemesis, melena, hematochezia, night sweats, or weight loss. PHYSICAL EXAMINATION: GENERAL: Reveals an elderly female. VITAL SIGNS: Blood pressure is 140/80, heart rate 84, respirations , she is afebrile. HEENT: Unremarkable. LUNGS: Clear breath sounds bilaterally. HEART: Normal heart sounds. ABDOMEN: Soft. EXTREMITIES: There is no edema. NEUROLOGIC: Nonfocal. LABORATORY DATA: Lab testing shows normal CBC. This was obtained a week ago. Similarly chemistries were obtained a week ago. X-ray of the chest obtained a week ago was also negative except hyperinflation. IMPRESSION: 1. COPD. 2. Chronic methadone use. DISCUSSION: Currently, the patient is stable from medical standpoint. She is back on her methadone and I note that she is also back on her regular respiratory care, which includes breathing treatments. She has also had received prednisone a single dose yesterday and is on 30 mg daily. At this point, I will discontinue the daily 30 mg and start her only on 10 mg a day, which is all that she may need. We will follow as mandate retail service merchandiser. Thank you for the consultation. Mehdi Obrien M.D. : MARIA T/CHRIS JOB#: [id number] CC:
[2019-06-27] MEDS: D5 1/2NS 1,000 ML IV SCH (14:40)
[2019-06-27 16:00] VITALS: BP 144/88
--- NOTE | 2019-06-27 19:20 | NUR ---
HAND-OFF: Report given to KARSON Wong.
[2019-06-27 20:00] VITALS: BP 137/85
--- NOTE | 2019-06-27 20:30 | NUR ---
NURSE NOTES: Received patient awake in bed, refused 2100 medications, does not want to be bothered for midnight vitals, refusing IV access and hospital gown. No c/o pain at this time.
[2019-06-27] MEDS: Sennosides 8.6mg tab ORAL SCH (20:51)
[2019-06-28 04:00] VITALS: BP 125/82
[2019-06-28] MEDS: D5 1/2NS 1,000 ML IV SCH (06:27)
--- NOTE | 2019-06-28 07:11 | NUR ---
HAND-OFF: Report given to KARSON Pearson.
--- NOTE | 2019-06-28 07:51 | General Progress Note ---
Assessment/Plan Problem List: (1) Weak ICD Codes: R53.1 - Weakness SNOMED: 97757019 (2) Chronic pain ICD Codes: G89.29 - Other chronic pain SNOMED: 01576750 (3) SOB (shortness of breath) ICD Codes: R06.02 - Shortness of breath SNOMED: 814443061 (4) COPD (chronic obstructive pulmonary disease) ICD Codes: J44.9 - Chronic obstructive pulmonary disease, unspecified SNOMED: 30599693 Qualifiers: Qualified Codes: J44.9 - Chronic obstructive pulmonary disease, unspecified (5) Methadone dependence ICD Codes: F11.20 - Opioid dependence, uncomplicated SNOMED: 754519424 (6) Encephalopathy ICD Codes: G93.40 - Encephalopathy, unspecified SNOMED: 98175238 Status: stable, progressing Assessment/Plan: o2 pulm tx pain control pt diet cbc bmp am Subjective Constitutional: Reports: weakness Allergies: Coded Allergies: No Known Allergies (Unverified , 02/05/18) All Systems: reviewed and negative except above - o2nc calm inbed Subjective o2nc calm in bed Objective Last 24 Hour Vital Signs Date Time Temp Pulse Resp B/P (MAP) Pulse Ox O2 Delivery O2 Flow Rate FiO2 06/28/19 04:00 98.3 69 18 125/82 (96) 98 06/27/19 23:43 Nasal Cannula 2.0 06/27/19 20:00 97.3 66 21 137/85 (102) 98 06/27/19 16:20 76 20 100 Nasal Cannula 2.0 28 75 20 94 06/27/19 16:00 97.9 78 20 144/88 (106) 95 06/27/19 12:00 97.1 78 24 123/95 (104) 96 06/27/19 09:00 Nasal Cannula 2.0 06/27/19 08:00 97.8 75 16 143/78 (99) 93 Intake and Output 06/27/19 06/28/19 19:00 07:00 Intake Total 600 ml 200 ml Balance 600 ml 200 ml Intake Oral 600 ml 200 ml # Voids 4 2 Height (Feet): 4 Height (Inches): 2.00 Weight (Pounds): 130 General Appearance: lethargic EENT: normal ENT inspection Neck: normal alignment Cardiovascular: normal peripheral pulses, normal rate, regular rhythm Respiratory/Chest: chest wall non-tender, lungs clear, normal breath sounds Abdomen: normal bowel sounds, non tender, soft Extremities: normal inspection Edema: no edema noted Arm (L), no edema noted Arm (R), no edema noted Leg (L), no edema noted Leg (R), no edema noted Pedal (L), no edema noted Pedal (R), no edema noted Generalized Neurologic: responsive, motor weakness Skin: normal pigmentation, warm/dry Nam Rogel DO Jun 28, 2019 07:51
[2019-06-28 08:00] VITALS: BP 138/84
--- NOTE | 2019-06-28 08:12 | NUR ---
NURSE NOTES: Patient is awake and alert, sitting up in bed and eating breakfast.respiration sob noted on exertion,patient has 02 on by N/C will monitor.Call light within reach,bed alarm is on.
--- NOTE | 2019-06-28 08:32 | Pulmonology Progress Note ---
Assessment/Plan Assessment/Plan ASSESSMENT Advanced O2 dependent COPD Chronic methadone use PLAN DC planning to SNF O2 Methadone Will follow Subjective Interval Events: None new Constitutional: Reports: no symptoms HEENT: Repors: no symptoms Respiratory: Reports: no symptoms Cardiovascular: Reports: no symptoms Allergies: Coded Allergies: No Known Allergies (Unverified , 02/05/18) Objective Last 24 Hour Vital Signs Date Time Temp Pulse Resp B/P (MAP) Pulse Ox O2 Delivery O2 Flow Rate FiO2 06/28/19 04:00 98.3 69 18 125/82 (96) 98 06/27/19 23:43 Nasal Cannula 2.0 06/27/19 20:00 97.3 66 21 137/85 (102) 98 06/27/19 16:20 76 20 100 Nasal Cannula 2.0 28 75 20 94 06/27/19 16:00 97.9 78 20 144/88 (106) 95 06/27/19 12:00 97.1 78 24 123/95 (104) 96 06/27/19 09:00 Nasal Cannula 2.0 Intake and Output 06/27/19 06/28/19 19:00 07:00 Intake Total 600 ml 200 ml Balance 600 ml 200 ml Intake Oral 600 ml 200 ml # Voids 4 2 General Appearance: no acute distress HEENT: normocephalic Respiratory/Chest: chest wall non-tender Cardiovascular: normal peripheral pulses Current Medications Medications (Trade) Dose Ordered Sig/Mckayla Route PRN Reason Start Time Stop Time Status Last Admin Dose Admin Acetaminophen (Tylenol) 650 mg Q6H PRN ORAL For Pain 06/26/19 22:00 07/26/19 21:59 Albuterol Sulfate (Proventil) 2.5 mg Q6H PRN HHN Shortness of Breath 06/26/19 22:00 07/01/19 21:59 06/27/19 16:19 Clonidine HCl (Catapres Tab) 0.1 mg Q6H PRN ORAL SBP > 160mmHg 06/26/19 22:00 07/26/19 21:59 Dextrose/Sodium Chloride 1,000 ml @ 60 mls/hr [id number] IV 06/26/19 22:00 07/26/19 21:59 Docusate Sodium (Colace) 100 mg TWICE A DAY ORAL 06/27/19 09:00 07/27/19 08:59 06/27/19 09:15 Methadone HCl (Methadone HCl) 180 mg DAILY ORAL 06/27/19 09:00 07/04/19 08:59 06/27/19 09:21 Prednisone (predniSONE) 10 mg DAILY ORAL 06/28/19 09:00 07/28/19 08:59 Sennosides (Senokot) 17.2 mg BEDTIME ORAL 06/27/19 21:00 07/27/19 20:59 Mehdi Obrien MD Jun 28, 2019 08:32
[2019-06-28] MEDS: Docusate 100mg cap ORAL SCH ×2 (09:00→18:00)
[2019-06-28 12:00] VITALS: BP 146/95
--- NOTE | 2019-06-28 12:16 | Consultation ---
History of Present Illness General Date patient seen: Jun 28, 2019 Chief Complaint: Present Illness Allergies: Coded Allergies: No Known Allergies (Unverified , 02/05/18) Medication History Scheduled Albuterol Sulfate* (Albuterol Sulfate Mdi*), 2 PUFF INH Q6H Docusate Sodium* (Docusate Sodium*), 100 MG ORAL TWICE A DAY, (Reported) Ipratropium/Albuterol Sulfate (DuoNeb 0.5-3(2.5)mg/3ml), 3 ML HHN Q6HRT Prednisone* (Prednisone*), 30 MG ORAL DAILY@1800 Prednisone* (Prednisone*), 30 MG ORAL DAILY, (Reported) Sennosides (Farzana-Kuldeep), 17.2 MG PO HS, (Reported) Scheduled PRN Acetaminophen* (Acetaminophen 325MG Tablet*), 650 MG ORAL Q4H PRN for MILD PAIN, (Reported) Acetaminophen* (Acetaminophen 325MG Tablet*), 650 MG ORAL Q6H PRN for For Pain, (Reported) Albuterol Sulfate* (Albuterol Sulfate Hhn*), 3 ML INH Q6H PRN for Shortness of Breath, (Reported) Clonidine HCl (Clonidine HCl), 0.1 MG ORAL Q6H PRN Discontinued Medications Lidocaine (Lidocaine), 5 % TP DAILY Discontinued Reason: Therapy completed Methadone Hcl* (Methadone*), Unknown Dose PO DAILY, (Reported) Discontinued Reason: Pt stopped taking med Methadone Hcl* (Methadone*), 180 MG ORAL DAILY Discontinued Reason: Pt stopped taking med No Known Medications* (NKM - No Known Medications*), 0 ., (Reported) Discontinued Reason: Pt stopped taking med Patient History Healthcare decision maker Resuscitation status Advanced Directive on File Physical Exam Last 24 Hour Vital Signs Date Time Temp Pulse Resp B/P (MAP) Pulse Ox O2 Delivery O2 Flow Rate FiO2 06/28/19 09:00 Nasal Cannula 2.0 06/28/19 08:00 98.3 81 19 138/84 (102) 92 06/28/19 04:00 98.3 69 18 125/82 (96) 98 06/27/19 23:43 Nasal Cannula 2.0 06/27/19 20:00 97.3 66 21 137/85 (102) 98 06/27/19 16:20 76 20 100 Nasal Cannula 2.0 28 75 20 94 06/27/19 16:00 97.9 78 20 144/88 (106) 95 Intake and Output 06/27/19 06/28/19 19:00 07:00 Intake Total 600 ml 200 ml Balance 600 ml 200 ml Intake Oral 600 ml 200 ml # Voids 4 2 Height (Feet): 4 Height (Inches): 2.00 Weight (Pounds): 130 Medications Current Medications Medications (Trade) Dose Ordered Sig/Mckayla Route PRN Reason Start Time Stop Time Status Last Admin Dose Admin Acetaminophen (Tylenol) 650 mg Q6H PRN ORAL For Pain 06/26/19 22:00 07/26/19 21:59 Albuterol Sulfate (Proventil) 2.5 mg Q6H PRN HHN Shortness of Breath 06/26/19 22:00 07/01/19 21:59 06/27/19 16:19 Clonidine HCl (Catapres Tab) 0.1 mg Q6H PRN ORAL SBP > 160mmHg 06/26/19 22:00 07/26/19 21:59 Dextrose/Sodium Chloride 1,000 ml @ 60 mls/hr [id number] IV 06/26/19 22:00 07/26/19 21:59 Docusate Sodium (Colace) 100 mg TWICE A DAY ORAL 06/27/19 09:00 07/27/19 08:59 06/27/19 09:15 Methadone HCl (Methadone HCl) 180 mg DAILY ORAL 06/27/19 09:00 07/04/19 08:59 06/28/19 09:51 Prednisone (predniSONE) 10 mg DAILY ORAL 06/28/19 09:00 07/28/19 08:59 06/28/19 09:49 Sennosides (Senokot) 17.2 mg BEDTIME ORAL 06/27/19 21:00 07/27/19 20:59 Assessment/Plan Assessment/Plan: (1) H/O heroin abuse on methadone maintenance seen dictated Judah Barber Jun 28, 2019 12:16
--- NOTE | 2019-06-28 12:50 | Diagnostic Imaging Report ---
Indication: Reason For Exam: SOB Technique: Single AP view of the chest. Comparison: Chest radiograph dated 06/21/2019 Findings: The cardiomediastinal silhouette is unchanged. Lungs are hyperinflated. Redemonstration of diffuse interstitial prominence. No new airspace consolidation. No pneumothorax. No pleural effusion. No acute osseous abnormality. IMPRESSION: Diffuse interstitial prominence, which can be seen with peribronchial thickening the setting of reactive/infectious airways disease.
[2019-06-28 16:00] VITALS: BP 141/92
--- NOTE | 2019-06-28 18:17 | NUR ---
NURSE NOTES: Patient resting,patient states no complaints at this time.
--- NOTE | 2019-06-28 18:45 | NUR ---
HAND-OFF: Report given to MAYTE TY.
--- NOTE | 2019-06-28 19:33 | NUR ---
NURSE NOTES: [id number] patient awake,alert,verbal,ambulatory,resting in bed,comfortable.
[2019-06-28 20:02] VITALS: BP 145/91
[2019-06-28] MEDS: Sennosides 8.6mg tab ORAL SCH (21:00)
[2019-06-28 21:18] LABS: APPEARANCE,URINE CLOUDY; BILIRUBIN, URINE NEGATIVE (NEGATIVE); COLOR,URINE PALE YELLOW; GLUCOSE, URINE (UA) NEGATIVE (NEGATIVE); KETONES,URINE NEGATIVE (NEGATIVE); LEUKOCYTE ESTERASE ,URINE 3+ (NEGATIVE); NITRITE,URINE NEGATIVE (NEGATIVE); PH,URINE 7 (4.5-8.0); PROTEIN,URINE NEGATIVE (NEGATIVE); UROBILINOGEN,URINE 1 MG/DL (0.0-1.0)
--- NOTE | 2019-06-28 21:30 | Consultation ---
DATE OF CONSULTATION: 06/28/2019 PAIN MANAGEMENT CONSULTATION CONSULTING PHYSICIAN: Caterina Mcintosh M.D. REFERRING PHYSICIAN: Nam Rogel D.O. PHYSICIAN DEPUTY DIRECTOR OF NURSING: Avani Coffman CHIEF COMPLAINT: Heroin abuse. HISTORY OF PRESENT ILLNESS: This is a 69-year-old female, who has been seen in the Med/surg floor of [facility] for initial pain management consultation. The patient has been admitted under the care of Dr. Rogel due to COPD exacerbation, being seen by a vp public relations for this issue, had a history of heroin abuse and is going to methadone clinic, getting 100 mg daily which has been restarted. Methadone Clinic is in [place]. She is comfortable at this time and has no other complaints. PAST MEDICAL HISTORY: COPD. PAST SURGICAL HISTORY: Denies. SOCIAL HISTORY: Denies smoking tobacco, drinking alcohol, however has history of heroin abuse. ALLERGIES: No known drug allergies. MEDICATIONS: Methadone, albuterol, docusate, DuoNeb, prednisone, clonidine, lidocaine. REVIEW OF SYSTEMS: Denies rash, fever, chills, sweating, dizziness, drowsiness, sore throat, or change in weight. No nausea, vomiting, diarrhea, blood in the stool or urine. No bowel or bladder incontinence. No dysuria. PHYSICAL EXAMINATION: GENERAL: Alert, awake, and oriented. VITAL SIGNS: Blood pressure 138/84, heart rate is 81, oxygen saturation 90%, respiratory rate 19, temperature 98.3 degrees Fahrenheit. HEENT: PERRLA. NECK: Range of motion is full in all directions. No tenderness to paracervical muscles. No adenopathy. LUNGS: Decreased breath sounds bilaterally. HEART: S1 and S2. Regular. ABDOMEN: Soft and nontender. BACK: Range of motion is full in flexion and extension. EXTREMITIES: Upper and lower extremity range of motion is full in directions. No cyanosis. No clubbing. No edema. Sensory is intact. Reflexes are not obtainable. No adenopathy. ASSESSMENT AND PLAN: The patient is a 69-year-old female with history of heroin abuse on methadone maintenance. The patient will be continued on methadone as scheduled. The patient was discussed with Dr. Mcintosh and Dr. Mcintosh concurred. We will follow up with the patient. Thank you very much for the courtesy of this consultation. Caterina Mcintosh M.D. PHIL Coffman DR: Scott JOB#: [id number] CC: MIGUELINA
[2019-06-29 03:54] VITALS: BP 136/86
--- NOTE | 2019-06-29 07:30 | NUR ---
NURSE NOTES: Received pt from MAYTE TY. Pt is alert and orient. pt has NC 3LMP. No iv access , Dr BURCH notified. pt is eating breakfast independently. All needs attended, bed is locked and is in the lowest position. call light within easy reach. will continue to monitor.
--- NOTE | 2019-06-29 07:34 | NUR ---
HAND-OFF: Report given to Espinoza Pringle RN.
--- NOTE | 2019-06-29 07:43 | Pulmonology Progress Note ---
Assessment/Plan Assessment/Plan ASSESSMENT Advanced O2 dependent COPD Chronic methadone use PLAN DC planning to SNF O2 Methadone Will follow Subjective Interval Events: None new Constitutional: Reports: no symptoms HEENT: Repors: no symptoms Respiratory: Reports: no symptoms Cardiovascular: Reports: no symptoms Gastrointestinal/Abdominal: Reports: no symptoms Allergies: Coded Allergies: No Known Allergies (Unverified , 02/05/18) Objective Last 24 Hour Vital Signs Date Time Temp Pulse Resp B/P (MAP) Pulse Ox O2 Delivery O2 Flow Rate FiO2 06/29/19 03:54 97.8 80 136/86 (103) 06/28/19 20:35 Nasal Cannula 2.0 06/28/19 20:02 98.2 82 18 145/91 (109) 96 06/28/19 16:00 97.9 72 18 141/92 (108) 97 06/28/19 12:00 98.2 77 20 146/95 (112) 96 06/28/19 09:00 Nasal Cannula 2.0 06/28/19 08:00 98.3 81 19 138/84 (102) 92 Intake and Output 06/28/19 06/29/19 19:00 07:00 Intake Total 480 ml 840 ml Balance 480 ml 840 ml Intake Oral 480 ml 840 ml # Voids 1 3 General Appearance: no acute distress HEENT: normocephalic Respiratory/Chest: chest wall non-tender, decreased breath sounds Cardiovascular: normal peripheral pulses, normal rate Abdomen: normal bowel sounds Laboratory Tests 06/28/19 20:45: Urine Color Pale yellow, Urine Appearance Cloudy, Urine pH 7, Urine Specific [place] 1.015, Urine Protein Negative, Urine Glucose (UA) Negative, Urine Ketones Negative, Urine Blood Negative, Urine Nitrite Negative, Urine Bilirubin Negative, Urine Urobilinogen 1H, Urine Leukocyte Esterase 3+H, Urine RBC 0, Urine WBC 20-30H, Urine Squamous Epithelial Cells ModerateH, Urine Amorphous Sediment ManyH, Urine Bacteria ModerateH, Urine Opiates Screen Negative, Urine Barbiturates Screen Negative, Phencyclidine (PCP) Screen Negative, Urine Amphetamines Screen Negative, Urine Benzodiazepines Screen Negative, Urine Cocaine Screen Negative, Urine Marijuana (THC) Screen Negative Current Medications Medications (Trade) Dose Ordered Sig/Mckayla Route PRN Reason Start Time Stop Time Status Last Admin Dose Admin Acetaminophen (Tylenol) 650 mg Q6H PRN ORAL For Pain 06/26/19 22:00 07/26/19 21:59 Albuterol Sulfate (Proventil) 2.5 mg Q6H PRN HHN Shortness of Breath 06/26/19 22:00 07/01/19 21:59 06/27/19 16:19 Clonidine HCl (Catapres Tab) 0.1 mg Q6H PRN ORAL SBP > 160mmHg 06/26/19 22:00 07/26/19 21:59 Dextrose/Sodium Chloride 1,000 ml @ 60 mls/hr [id number] IV 06/26/19 22:00 07/26/19 21:59 Docusate Sodium (Colace) 100 mg TWICE A DAY ORAL 06/27/19 09:00 07/27/19 08:59 06/27/19 09:15 Methadone HCl (Methadone HCl) 180 mg DAILY ORAL 06/27/19 09:00 07/04/19 08:59 06/28/19 09:51 Prednisone (predniSONE) 10 mg DAILY ORAL 06/28/19 09:00 07/28/19 08:59 06/28/19 09:49 Sennosides (Senokot) 17.2 mg BEDTIME ORAL 06/27/19 21:00 07/27/19 20:59 Mehdi Obrien MD Jun 29, 2019 07:43
[2019-06-29 08:00] VITALS: BP 133/89
[2019-06-29 08:35] LABS: BASOPHILS % (AUTO) 1.4 % (0.0-2.0); EOSINOPHILS % (AUTO) 0.3 % (0.0-3.0); HEMATOCRIT 49.9 % (37.0-47.0); HEMOGLOBIN 16.4 G/DL (12.0-16.0); LYMPHOCYTES % (AUTO) 28.5 % (20.0-45.0); MEAN CORPUSCULAR VOLUME 94 FL (80-99); MONOCYTES % (AUTO) 7.5 % (1.0-10.0); NEUTROPHILS % (AUTO) 62.3 % (45.0-75.0); PLATELET COUNT 354 K/UL (150-450); RED BLOOD COUNT 5.29 M/UL (4.20-5.40); RED CELL DISTRIBUTION WIDTH 11.6 % (11.6-14.8); WHITE BLOOD COUNT 7.5 K/UL (4.8-10.8)
[2019-06-29] MEDS: Docusate 100mg cap ORAL SCH ×2 (08:49→17:16)
--- NOTE | 2019-06-29 08:55 | General Progress Note ---
Assessment/Plan Assessment/Plan: (1) H/O heroin abuse on methadone maintenance Patient will continue Methadone D/w Dr. Mcintosh and he concurred. Subjective Date patient seen: Jun 29, 2019 Time patient seen: 08:00 - am Constitutional: Reports: weakness HEENT: Reports: no symptoms Cardiovascular: Reports: no symptoms Respiratory: Reports: shortness of breath Gastrointestinal/Abdominal: Reports: no symptoms Genitourinary: Reports: no symptoms Neurologic/Psychiatric: Reports: no symptoms Endocrine: Reports: no symptoms Hematologic/Lymphatic: Reports: no symptoms Allergies: Coded Allergies: No Known Allergies (Unverified , 02/05/18) Subjective Patient is in bed no signs of pain or distress. Continues to get the Methadone daily, no new complaints at this time. Objective Last 24 Hour Vital Signs Date Time Temp Pulse Resp B/P (MAP) Pulse Ox O2 Delivery O2 Flow Rate FiO2 06/29/19 08:00 98.1 85 19 133/89 (104) 96 06/29/19 03:54 97.8 80 136/86 (103) 06/28/19 20:35 Nasal Cannula 2.0 06/28/19 20:02 98.2 82 18 145/91 (109) 96 06/28/19 16:00 97.9 72 18 141/92 (108) 97 06/28/19 12:00 98.2 77 20 146/95 (112) 96 06/28/19 09:00 Nasal Cannula 2.0 Intake and Output 06/28/19 06/29/19 19:00 07:00 Intake Total 480 ml 840 ml Balance 480 ml 840 ml Intake Oral 480 ml 840 ml # Voids 1 3 Laboratory Tests 06/28/19 20:45: Urine Color Pale yellow, Urine Appearance Cloudy, Urine pH 7, Urine Specific [place] 1.015, Urine Protein Negative, Urine Glucose (UA) Negative, Urine Ketones Negative, Urine Blood Negative, Urine Nitrite Negative, Urine Bilirubin Negative, Urine Urobilinogen 1H, Urine Leukocyte Esterase 3+H, Urine RBC 0, Urine WBC 20-30H, Urine Squamous Epithelial Cells ModerateH, Urine Amorphous Sediment ManyH, Urine Bacteria ModerateH, Urine Opiates Screen Negative, Urine Barbiturates Screen Negative, Phencyclidine (PCP) Screen Negative, Urine Amphetamines Screen Negative, Urine Benzodiazepines Screen Negative, Urine Cocaine Screen Negative, Urine Marijuana (THC) Screen Negative 06/29/19 07:55: White Blood Count 7.5, Red Blood Count 5.29, Hemoglobin 16.4H, Hematocrit 49.9H , Mean Corpuscular Volume 94, Mean Corpuscular Hemoglobin 31.1H, Mean Corpuscular Hemoglobin Concent 33.0, Red Cell Distribution Width 11.6, Platelet Count 354, Mean Platelet Volume 5.7L, Neutrophils (%) (Auto) 62.3, Lymphocytes ( %) (Auto) 28.5, Monocytes (%) (Auto) 7.5, Eosinophils (%) (Auto) 0.3, Basophils (%) (Auto) 1.4, Sodium Level [Pending], Potassium Level [Pending], Chloride Level [Pending], Carbon Dioxide Level [Pending], Blood Urea Nitrogen [Pending], Creatinine [Pending], Estimat Glomerular Filtration Rate [Pending], Glucose Level [Pending], Calcium Level [Pending] Height (Feet): 4 Height (Inches): 2.00 Weight (Pounds): 130 General Appearance: no apparent distress, alert EENT: PERRL/EOMI, normal ENT inspection Neck: non-tender, normal alignment Cardiovascular: normal rate, regular rhythm Respiratory/Chest: decreased breath sounds Abdomen: non tender, soft Extremities: non-tender Edema: no edema noted Generalized Neurologic: alert, oriented x 3 Skin: warm/dry Judah Barber Jun 29, 2019 08:55
[2019-06-29 09:01] LABS: ANION GAP 2 mmol/L (5-15); BLOOD UREA NITROGEN 20 mg/dL (7-18); CALCIUM 9.2 MG/DL (8.5-10.1); CARBON DIOXIDE 40 MMOL/L (21-32); CHLORIDE 102 MMOL/L (98-107); CREATININE 0.6 MG/DL (0.55-1.30); POTASSIUM 3.8 MMOL/L (3.5-5.1); SODIUM 144 MMOL/L (136-145)
--- NOTE | 2019-06-29 09:32 | General Progress Note ---
Assessment/Plan Problem List: (1) Weak ICD Codes: R53.1 - Weakness SNOMED: 90816244 (2) Chronic pain ICD Codes: G89.29 - Other chronic pain SNOMED: 99072539 (3) SOB (shortness of breath) ICD Codes: R06.02 - Shortness of breath SNOMED: 023055231 (4) COPD (chronic obstructive pulmonary disease) ICD Codes: J44.9 - Chronic obstructive pulmonary disease, unspecified SNOMED: 29488138 Qualifiers: Qualified Codes: J44.9 - Chronic obstructive pulmonary disease, unspecified (5) Methadone dependence ICD Codes: F11.20 - Opioid dependence, uncomplicated SNOMED: 226487875 (6) Encephalopathy ICD Codes: G93.40 - Encephalopathy, unspecified SNOMED: 79108936 (7) UTI (urinary tract infection) ICD Codes: N39.0 - Urinary tract infection, site not specified SNOMED: 49684592 Status: stable, progressing Assessment/Plan: o2 pulm tx pain control pt diet cbc bmp am Subjective Constitutional: Reports: weakness Allergies: Coded Allergies: No Known Allergies (Unverified , 02/05/18) All Systems: reviewed and negative except above Subjective o2nc calm in bed Objective Last 24 Hour Vital Signs Date Time Temp Pulse Resp B/P (MAP) Pulse Ox O2 Delivery O2 Flow Rate FiO2 06/29/19 08:00 98.1 85 19 133/89 (104) 96 06/29/19 03:54 97.8 80 136/86 (103) 06/28/19 20:35 Nasal Cannula 2.0 06/28/19 20:02 98.2 82 18 145/91 (109) 96 06/28/19 16:00 97.9 72 18 141/92 (108) 97 06/28/19 12:00 98.2 77 20 146/95 (112) 96 Intake and Output 06/28/19 06/29/19 19:00 07:00 Intake Total 480 ml 840 ml Balance 480 ml 840 ml Intake Oral 480 ml 840 ml # Voids 1 3 Laboratory Tests 06/28/19 20:45: Urine Color Pale yellow, Urine Appearance Cloudy, Urine pH 7, Urine Specific [place] 1.015, Urine Protein Negative, Urine Glucose (UA) Negative, Urine Ketones Negative, Urine Blood Negative, Urine Nitrite Negative, Urine Bilirubin Negative, Urine Urobilinogen 1H, Urine Leukocyte Esterase 3+H, Urine RBC 0, Urine WBC 20-30H, Urine Squamous Epithelial Cells ModerateH, Urine Amorphous Sediment ManyH, Urine Bacteria ModerateH, Urine Opiates Screen Negative, Urine Barbiturates Screen Negative, Phencyclidine (PCP) Screen Negative, Urine Amphetamines Screen Negative, Urine Benzodiazepines Screen Negative, Urine Cocaine Screen Negative, Urine Marijuana (THC) Screen Negative 06/29/19 07:55: White Blood Count 7.5, Red Blood Count 5.29, Hemoglobin 16.4H, Hematocrit 49.9H , Mean Corpuscular Volume 94, Mean Corpuscular Hemoglobin 31.1H, Mean Corpuscular Hemoglobin Concent 33.0, Red Cell Distribution Width 11.6, Platelet Count 354, Mean Platelet Volume 5.7L, Neutrophils (%) (Auto) 62.3, Lymphocytes ( %) (Auto) 28.5, Monocytes (%) (Auto) 7.5, Eosinophils (%) (Auto) 0.3, Basophils (%) (Auto) 1.4, Sodium Level 144, Potassium Level 3.8, Chloride Level 102, Carbon Dioxide Level 40H, Anion Gap 2L, Blood Urea Nitrogen 20H, Creatinine 0.6 , Estimat Glomerular Filtration Rate > 60, Glucose Level 106, Calcium Level 9.2 Height (Feet): 4 Height (Inches): 2.00 Weight (Pounds): 130 General Appearance: lethargic EENT: normal ENT inspection Neck: normal alignment Cardiovascular: normal peripheral pulses, normal rate, regular rhythm Respiratory/Chest: chest wall non-tender, lungs clear, normal breath sounds Abdomen: normal bowel sounds, non tender, soft Extremities: normal inspection Edema: no edema noted Arm (L), no edema noted Arm (R), no edema noted Leg (L), no edema noted Leg (R), no edema noted Pedal (L), no edema noted Pedal (R), no edema noted Generalized Neurologic: responsive, motor weakness Skin: normal pigmentation, warm/dry Nam Rogel DO Jun 29, 2019 09:32
--- NOTE | 2019-06-29 09:39 | Consultation ---
Consult Note Consult Note HPI: 69yo woman with PMH COPD and heroin abuse on methadone brought from her longterm for agitation because she never received her methadone. ID consulted for possible UTI. Pt currently does not remember why she is here in the hospital. She is coughing and states that she does not remember how long she has been coughing for. Productive cough. Denies SOB. Denies using oxygen at the longterm. Denies diarrhea, dysuria, hematuria, suprapubic pain, flank pain, fever, chills. ROS: per HPI PMH: COPD, heroin abuse on methadone FHx: noncontributory SHx: heroin abuse on methadone, longterm resident Meds: reviewed NKDA PE: VS: reviewed Gen: NAD HEENT: anicteric sclera CV: RRR Resp: inspiratory and expiratory wheezes Abd: Soft. no TTP. normoactive BS+ Ext: No LE edema Neuro: alert. interactive Labs: WBC 7.5 Cr 0.6 Assessment/Plan: Afebrile No Leukocytosis Asymptomatic bacteriuria UA 20-30WBC, moderate epithelial cells UCx: P COPD CXR: Diffuse interstitial prominence, which can be seen with peribronchial thickening the setting of reactive/infectious airways disease Heroin abuse on methadone Plan: monitor off antibiotics. ok to DC back to SNF. breathing treatments per pulm steroid per pulm aspiration precaution, elevate HOB Thank you for this consult. [facility] will continue to follow the patient with you. Bozena Hines MD Jun 29, 2019 09:39
--- NOTE | 2019-06-29 09:48 | NUR ---
*-* NO INSURANCE INFORMATION IN THE BAR UNABLE TO SEND CLINICALS OR REVIEWS *-*
[2019-06-29 12:00] VITALS: BP 141/83
[2019-06-29] MEDS ORDERED: CLONIDINE0.1 MG ORAL (14:38)
[2019-06-29 15:58] VITALS: BP 121/78
[2019-06-29] MEDS: D5 1/2NS 1,000 ML IV SCH ×2 (16:40)
--- NOTE | 2019-06-29 19:15 | NUR ---
NURSE NOTES: Received a report from KARSON Pringle. AAOX4. Able to make needs known. Uses nasal cannula 3L/min. No IV access, aware. Bed in lowest position. Bed alarm is on. Call light within reach. Will continue to monitor.
--- NOTE | 2019-06-29 19:21 | NUR ---
HAND-OFF: Report given to PREET TY.Pt is awake and stable.
[2019-06-29 20:00] VITALS: BP 134/74
[2019-06-29] MEDS: Sennosides 8.6mg tab ORAL SCH (20:31)
[2019-06-30] VITALS: BP 128/77
[2019-06-30 04:00] VITALS: BP 125/90
--- NOTE | 2019-06-30 07:05 | NUR ---
HAND-OFF: Report given to KARSON Shrestha.
--- NOTE | 2019-06-30 07:09 | NUR ---
NURSE NOTES: Received patient awake on bed. With O2 via NC. No SOB or cardiac distress. In a pleasant disposition. HOB elevated. Bed locked in lowest position. Will continue plan of care.
--- NOTE | 2019-06-30 07:27 | Cardiology Report ---
APPROVED REPORT EKG Measurement Heart [id number] Normal sinus rhythm Right atrial enlargement T wave abnormality, consider inferior ischemia T wave abnormality, consider anterolateral ischemia Prolonged QT Abnormal ECG
[2019-06-30 08:00] VITALS: BP 120/78
--- NOTE | 2019-06-30 09:08 | General Progress Note ---
Assessment/Plan Assessment/Plan: (1) H/O heroin abuse on methadone maintenance Patient will continue Methadone D/w Dr. Mcintosh and he concurred. Subjective Date patient seen: Jun 30, 2019 Time patient seen: 08:00 - am Constitutional: Reports: no symptoms HEENT: Reports: no symptoms Cardiovascular: Reports: no symptoms Respiratory: Reports: no symptoms Gastrointestinal/Abdominal: Reports: no symptoms Genitourinary: Reports: no symptoms Neurologic/Psychiatric: Reports: no symptoms Endocrine: Reports: no symptoms Hematologic/Lymphatic: Reports: no symptoms Allergies: Coded Allergies: No Known Allergies (Unverified , 02/05/18) Subjective Doing well no new complaints continues to get the methadone scheduled. Objective Last 24 Hour Vital Signs Date Time Temp Pulse Resp B/P (MAP) Pulse Ox O2 Delivery O2 Flow Rate FiO2 06/30/19 04:00 97.2 95 19 125/90 (102) 95 06/30/19 00:00 97.3 84 21 128/77 (94) 93 06/29/19 21:00 Nasal Cannula 2.0 06/29/19 20:00 98.2 78 18 134/74 (94) 94 06/29/19 15:58 98.0 86 20 121/78 (92) 97 06/29/19 12:00 98.3 75 20 141/83 (102) 97 Intake and Output 06/29/19 06/30/19 19:00 07:00 Intake Total 720 ml 120 ml Balance 720 ml 120 ml Intake Oral 720 ml 120 ml # Voids 4 4 Height (Feet): 4 Height (Inches): 2.00 Weight (Pounds): 130 General Appearance: no apparent distress, alert EENT: PERRL/EOMI, normal ENT inspection Neck: non-tender, normal alignment Cardiovascular: normal rate, regular rhythm Respiratory/Chest: decreased breath sounds Abdomen: non tender, soft Extremities: non-tender Edema: no edema noted Generalized Neurologic: alert, oriented x 3 Skin: normal pigmentation Judah Barber Jun 30, 2019 09:08
[2019-06-30] MEDS: D5 1/2NS 1,000 ML IV SCH (09:20)
[2019-06-30] MEDS ORDERED: METHADONE HCL10 MG ORAL (09:20)
--- NOTE | 2019-06-30 10:15 | Pulmonology Progress Note ---
Assessment/Plan Assessment/Plan ASSESSMENT Advanced O2 dependent COPD Chronic methadone use PLAN DC planning to SNF O2 Methadone Will follow Subjective Interval Events: None new Constitutional: Reports: no symptoms HEENT: Repors: no symptoms Respiratory: Reports: no symptoms Cardiovascular: Reports: no symptoms Allergies: Coded Allergies: No Known Allergies (Unverified , 02/05/18) Objective Last 24 Hour Vital Signs Date Time Temp Pulse Resp B/P (MAP) Pulse Ox O2 Delivery O2 Flow Rate FiO2 06/30/19 04:00 97.2 95 19 125/90 (102) 95 06/30/19 00:00 97.3 84 21 128/77 (94) 93 06/29/19 21:00 Nasal Cannula 2.0 06/29/19 20:00 98.2 78 18 134/74 (94) 94 06/29/19 15:58 98.0 86 20 121/78 (92) 97 06/29/19 12:00 98.3 75 20 141/83 (102) 97 Intake and Output 06/29/19 06/30/19 19:00 07:00 Intake Total 720 ml 120 ml Balance 720 ml 120 ml Intake Oral 720 ml 120 ml # Voids 4 4 General Appearance: no acute distress HEENT: normocephalic Respiratory/Chest: chest wall non-tender, lungs clear Cardiovascular: normal peripheral pulses, normal rate Abdomen: normal bowel sounds Microbiology Date/Time Source Procedure Growth Status 06/28/19 20:45 Urine,Clean Catch Urine Culture - Preliminary Resulted Current Medications Medications (Trade) Dose Ordered Sig/Mckayla Route PRN Reason Start Time Stop Time Status Last Admin Dose Admin Acetaminophen (Tylenol) 650 mg Q6H PRN ORAL For Pain 06/26/19 22:00 07/26/19 21:59 Albuterol Sulfate (Proventil) 2.5 mg Q6H PRN HHN Shortness of Breath 06/26/19 22:00 07/01/19 21:59 06/27/19 16:19 Clonidine HCl (Catapres Tab) 0.1 mg Q6H PRN ORAL SBP > 160mmHg 06/26/19 22:00 07/26/19 21:59 Dextrose/Sodium Chloride 1,000 ml @ 60 mls/hr [id number] IV 06/26/19 22:00 07/26/19 21:59 Docusate Sodium (Colace) 100 mg TWICE A DAY ORAL 06/27/19 09:00 07/27/19 08:59 06/29/19 17:16 Influenza Virus Vaccine Quadrival (Flu Vaccine) 0.5 ml ONCE ONCE IM 06/30/19 10:30 06/30/19 10:31 Methadone HCl (Methadone HCl) 180 mg DAILY ORAL 06/27/19 09:00 07/04/19 08:59 06/29/19 08:49 Prednisone (predniSONE) 10 mg DAILY ORAL 06/28/19 09:00 07/28/19 08:59 06/29/19 08:48 Sennosides (Senokot) 17.2 mg BEDTIME ORAL 06/27/19 21:00 07/27/19 20:59 Mehdi Obrien MD Jun 30, 2019 10:15
[2019-06-30] MEDS: Docusate 100mg cap ORAL SCH ×2 (10:25→18:00)
[2019-06-30] MEDS ORDERED: Flu Vac High-Dose for Pts 65 Years and Older IM ONE (10:30)
[2019-06-30 12:00] VITALS: BP 134/80
[2019-06-30] MEDS ORDERED: PREDNISONE10 MG ORAL (12:24)
[2019-06-30 12:27] LABS: BASOPHILS % (AUTO) 0.7 % (0.0-2.0); EOSINOPHILS % (AUTO) 0.1 % (0.0-3.0); HEMATOCRIT 52.4 % (37.0-47.0); HEMOGLOBIN 16.7 G/DL (12.0-16.0); MEAN CORPUSCULAR VOLUME 95 FL (80-99); MONOCYTES % (AUTO) 3.5 % (1.0-10.0); NEUTROPHILS % (AUTO) 83.8 % (45.0-75.0); PLATELET COUNT 397 K/UL (150-450); RED CELL DISTRIBUTION WIDTH 11.3 % (11.6-14.8); WHITE BLOOD COUNT 12.1 K/UL (4.8-10.8)
[2019-06-30 12:29] LABS: ANION GAP 1 mmol/L (5-15); BLOOD UREA NITROGEN 21 mg/dL (7-18); CALCIUM 8.8 MG/DL (8.5-10.1); CARBON DIOXIDE 40 MMOL/L (21-32); CHLORIDE 100 MMOL/L (98-107); CREATININE 0.5 MG/DL (0.55-1.30); POTASSIUM 4.5 MMOL/L (3.5-5.1); SODIUM 141 MMOL/L (136-145)
--- NOTE | 2019-06-30 12:49 | CDS Physician Query ---
Clarification is required for compliance, coding accuracy, and to reflect severity of illness for this patient Dear Dr. Nam Rogel D.O. Date: 06/30/2019 [place]/CDS Name: Ishan Oseguera This is a 69-year-old female from [facility], presented with above-mentioned diagnoses. Apparently, she did not receive her methadone. She became very agitated, slightly confused, and slight short of breath, came to [place], diagnosed with the above, admitted to medical floor for further treatment. Currently, O2 NC, calm in bed, feeling better, receiving medications, no complaint. "Encephalopathy / Agitation" documented in H&P Please indicate the nature and chronicity of the condition below: [] Metabolic Encephalopathy [] Toxic Encephalopathy [] Toxic - Metabolic Encephalopathy [] Encephalopathy, Other [] Dementia with Delirium [] Hypoxic encephalopathy [] Posterior reversible encephalopathy syndrome [] Other: [] Not Applicable Present on Admission: [] Yes [] No [] Clinically Undetermined Physician signature Date Please also document in your Progress Notes and/or Discharge Summary and indicate if the condition was present on admission. MTDD
--- NOTE | 2019-06-30 13:51 | NUR ---
NURSE NOTES: Patient with discharge orders, awaiting confirmation of disease case manager rn. Patient aware.
--- NOTE | 2019-06-30 14:05 | General Progress Note ---
Assessment/Plan Problem List: (1) Weak ICD Codes: R53.1 - Weakness SNOMED: 89604818 (2) Chronic pain ICD Codes: G89.29 - Other chronic pain SNOMED: 40114346 (3) SOB (shortness of breath) ICD Codes: R06.02 - Shortness of breath SNOMED: 698451699 (4) COPD (chronic obstructive pulmonary disease) ICD Codes: J44.9 - Chronic obstructive pulmonary disease, unspecified SNOMED: 78358535 Qualifiers: Qualified Codes: J44.9 - Chronic obstructive pulmonary disease, unspecified (5) Methadone dependence ICD Codes: F11.20 - Opioid dependence, uncomplicated SNOMED: 472658345 (6) Encephalopathy ICD Codes: G93.40 - Encephalopathy, unspecified SNOMED: 20932962 (7) UTI (urinary tract infection) ICD Codes: N39.0 - Urinary tract infection, site not specified SNOMED: 01227796 Status: stable, progressing Assessment/Plan: o2 pulm tx pain control pt diet cbc bmp am dc plan Subjective Constitutional: Reports: weakness Allergies: Coded Allergies: No Known Allergies (Unverified , 02/05/18) All Systems: reviewed and negative except above Subjective calm in bed Objective Last 24 Hour Vital Signs Date Time Temp Pulse Resp B/P (MAP) Pulse Ox O2 Delivery O2 Flow Rate FiO2 06/30/19 12:00 98.6 87 18 134/80 (98) 95 06/30/19 09:00 Nasal Cannula 2.0 06/30/19 08:00 98.6 98 15 120/78 (92) 92 06/30/19 04:00 97.2 95 19 125/90 (102) 95 06/30/19 00:00 97.3 84 21 128/77 (94) 93 06/29/19 21:00 Nasal Cannula 2.0 06/29/19 20:00 98.2 78 18 134/74 (94) 94 06/29/19 15:58 98.0 86 20 121/78 (92) 97 Intake and Output 06/29/19 06/30/19 19:00 07:00 Intake Total 720 ml 120 ml Balance 720 ml 120 ml Intake Oral 720 ml 120 ml # Voids 4 4 Laboratory Tests 06/30/19 11:55: White Blood Count 12.1#H, Red Blood Count 5.50H, Hemoglobin 16.7H, Hematocrit 52.4H, Mean Corpuscular Volume 95, Mean Corpuscular Hemoglobin 30.4, Mean Corpuscular Hemoglobin Concent 31.8L, Red Cell Distribution Width 11.3L, Platelet Count 397, Mean Platelet Volume 5.8L, Neutrophils (%) (Auto) 83.8H, Lymphocytes (%) (Auto) 12.0L, Monocytes (%) (Auto) 3.5, Eosinophils (%) (Auto) 0.1, Basophils (%) (Auto) 0.7, Sodium Level 141, Potassium Level 4.5, Chloride Level 100, Carbon Dioxide Level 40H, Anion Gap 1L, Blood Urea Nitrogen 21H, Creatinine 0.5L, Estimat Glomerular Filtration Rate > 60, Glucose Level 98, Calcium Level 8.8 Height (Feet): 4 Height (Inches): 2.00 Weight (Pounds): 130 General Appearance: lethargic EENT: normal ENT inspection Neck: normal alignment Cardiovascular: normal peripheral pulses, normal rate, regular rhythm Respiratory/Chest: chest wall non-tender, lungs clear, normal breath sounds Abdomen: normal bowel sounds, non tender, soft Extremities: normal inspection Edema: no edema noted Arm (L), no edema noted Arm (R), no edema noted Leg (L), no edema noted Leg (R), no edema noted Pedal (L), no edema noted Pedal (R), no edema noted Generalized Neurologic: responsive, motor weakness Skin: normal pigmentation, warm/dry Nam Rogel DO Jun 30, 2019 14:05
--- NOTE | 2019-06-30 14:57 | Infectious Diseases Prog Note ---
Assessment/Plan Assessment/Plan Assessment/Plan: Afebrile Leukocytosis 2/2 steroids Asymptomatic bacteriuria denies dysuria, suprapubic pain, flank pain UA 20-30WBC, moderate epithelial cells UCx: P COPD CXR: Diffuse interstitial prominence, which can be seen with peribronchial thickening the setting of reactive/infectious airways disease Heroin abuse on methadone Plan: monitor off antibiotics. ok to DC back to SNF. breathing treatments per pulm steroid per pulm aspiration precaution, elevate HOB Thank you for this consult. [facility] will continue to follow the patient with you. Subjective Allergies: Coded Allergies: No Known Allergies (Unverified , 02/05/18) Subjective Afebrile. Leukocytosis. Pt states she is comfortable and wants to go back to her halfway. Objective Vital Signs Last 24 Hour Vital Signs Date Time Temp Pulse Resp B/P (MAP) Pulse Ox O2 Delivery O2 Flow Rate FiO2 06/30/19 12:00 98.6 87 18 134/80 (98) 95 06/30/19 09:00 Nasal Cannula 2.0 06/30/19 08:00 98.6 98 15 120/78 (92) 92 06/30/19 04:00 97.2 95 19 125/90 (102) 95 06/30/19 00:00 97.3 84 21 128/77 (94) 93 06/29/19 21:00 Nasal Cannula 2.0 06/29/19 20:00 98.2 78 18 134/74 (94) 94 06/29/19 15:58 98.0 86 20 121/78 (92) 97 Height (Feet): 4 Height (Inches): 2.00 Weight (Pounds): 130 Objective VS: reviewed Gen: NAD HEENT: anicteric sclera CV: RRR Resp: inspiratory and expiratory wheezes Abd: Soft. no TTP. normoactive BS+ Ext: No LE edema Neuro: alert. interactive Microbiology Date/Time Source Procedure Growth Status 06/28/19 20:45 Urine,Clean Catch Urine Culture - Preliminary Resulted Laboratory Tests Test 06/30/19 11:55 White Blood Count 12.1 K/UL (4.8-10.8) #H Red Blood Count 5.50 M/UL (4.20-5.40) H Hemoglobin 16.7 G/DL (12.0-16.0) H Hematocrit 52.4 % (37.0-47.0) H Mean Corpuscular Volume 95 FL (80-99) Mean Corpuscular Hemoglobin 30.4 PG (27.0-31.0) Mean Corpuscular Hemoglobin Concent 31.8 G/DL (32.0-36.0) L Red Cell Distribution Width 11.3 % (11.6-14.8) L Platelet Count 397 K/UL (150-450) Mean Platelet Volume 5.8 FL (6.5-10.1) L Neutrophils (%) (Auto) 83.8 % (45.0-75.0) H Lymphocytes (%) (Auto) 12.0 % (20.0-45.0) L Monocytes (%) (Auto) 3.5 % (1.0-10.0) Eosinophils (%) (Auto) 0.1 % (0.0-3.0) Basophils (%) (Auto) 0.7 % (0.0-2.0) Sodium Level 141 MMOL/L (136-145) Potassium Level 4.5 MMOL/L (3.5-5.1) Chloride Level 100 MMOL/L (98-107) Carbon Dioxide Level 40 MMOL/L (21-32) H Anion Gap 1 mmol/L (5-15) L Blood Urea Nitrogen 21 mg/dL (7-18) H Creatinine 0.5 MG/DL (0.55-1.30) L Estimat Glomerular Filtration Rate > 60 mL/min (>60) Glucose Level 98 MG/DL (74-106) Calcium Level 8.8 MG/DL (8.5-10.1) Current Medications Medications (Trade) Dose Ordered Sig/Mckayla Route PRN Reason Start Time Stop Time Status Last Admin Dose Admin Acetaminophen (Tylenol) 650 mg Q6H PRN ORAL For Pain 06/26/19 22:00 07/26/19 21:59 Albuterol Sulfate (Proventil) 2.5 mg Q6H PRN HHN Shortness of Breath 06/26/19 22:00 07/01/19 21:59 06/27/19 16:19 Clonidine HCl (Catapres Tab) 0.1 mg Q6H PRN ORAL SBP > 160mmHg 06/26/19 22:00 07/26/19 21:59 Dextrose/Sodium Chloride 1,000 ml @ 60 mls/hr [id number] IV 06/26/19 22:00 07/26/19 21:59 Docusate Sodium (Colace) 100 mg TWICE A DAY ORAL 06/27/19 09:00 07/27/19 08:59 06/30/19 10:25 Methadone HCl (Methadone HCl) 180 mg DAILY ORAL 06/27/19 09:00 07/04/19 08:59 06/30/19 09:00 Prednisone (predniSONE) 10 mg DAILY ORAL 06/28/19 09:00 07/28/19 08:59 06/30/19 10:16 Sennosides (Senokot) 17.2 mg BEDTIME ORAL 06/27/19 21:00 07/27/19 20:59 Bozena Hines MD Jun 30, 2019 14:57
[2019-06-30 16:00] VITALS: BP 121/80
--- NOTE | 2019-06-30 19:06 | NUR ---
HAND-OFF: Report given to
--- NOTE | 2019-06-30 19:38 | NUR ---
NURSE NOTES: Received patient awake, alert, verbal, ambulatory, resting comfortably in bed watching television.
[2019-06-30 19:57] VITALS: BP 121/70
[2019-06-30] MEDS: Sennosides 8.6mg tab ORAL SCH (20:51)
[2019-07-01] MEDS: D5 1/2NS 1,000 ML IV SCH ×2 (02:00→18:40)
[2019-07-01 03:50] VITALS: BP 126/74
--- NOTE | 2019-07-01 06:00 | Consultation ---
DATE OF CONSULTATION: 06/30/2019 HISTORY OF PRESENT ILLNESS: This is a 69-year-old female patient with agitation, opiate withdrawal, chronic pain, shortness of breath, that is why she came into [facility]. A psychiatric consultation was requested for the patient who has a history of taking methadone and when she initially did not get it, she started getting very agitated, verbally abusive, hostile, and she has confusion and shortness of breath, that is why she came into the hospital. On interview, she continues to have some altered mental status, confusion, and disorganized thought process. PAST MEDICAL PROBLEMS: Include COPD, methadone dependency, asthma, and history of MS. ALLERGIES: No known drug allergies. MEDICATIONS: As far as this patient's psychotropic medications on admission, the patient is now back on methadone, but she is denying any current psychotropic medications. FAMILY PSYCHIATRIC HISTORY: Denies. PAIN ASSESSMENT: 010. DEVELOPMENTAL PROBLEMS: Denies. SUBSTANCE ABUSE HISTORY: Opioid dependency abuse in the past. SOCIAL HISTORY: The patient is financially supported by [employer] and Medicare. The patient is currently living in Shelter. PSYCHIATRIC HISTORY: History of generalized anxiety, rule out depression with psychotic features. As far as this patient's psych history, he did not have any previous psych history. The patient is a poor historian, however, denies any current suicidal or homicidal ideation. STRENGTHS: She is motivated to get better and she is relatively healthy. WEAKNESSES: She is impulsive. Minimal support system. MENTAL STATUS EXAMINATION: This is a 69-year-old female. Appearance is disheveled. Attitude, irritable and agitated. Affect, guarded and restricted. Intellect poor because she does not know current events, does not know the last four presidents. Mood, depressed and anxious. Motor activity, psychomotor agitation. Attention span is poor because she cannot do serial 7's or spell world backwards. Orientation x2. She is oriented to person and place, not to time or situation. Speech is pressured, nonsensical. Thought process, disorganized and illogical. Thought content, auditory hallucinations and paranoid delusions. Insight and judgment are poor. DIAGNOSES: 1. Major depressive disorder, severe, recurrent with psychotic features, rule out dementia with psychosis. 2. Medical diagnoses include chronic pain and shortness of breath. 3. Psychosocial stressors, financial. 4. Functional impairment is mild. PLAN: Continue titrating up her medications to stabilize mood. Provided with 20 minutes of cognitive behavioral therapy to help her identify automatic negative thoughts and help her convert those negative thoughts to more positive thoughts to reduce depression, anxiety, and mood lability. Twenty minutes of cognitive behavioral therapy provided. I would like to thank Dr. Nam Rogel for this interesting consultation. I will be happy to follow this patient with you throughout her hospital course. Chart was reviewed. Discussed with staff. Seen and assessed at the beside. Royce Aguayo M.D. DR: Roseann JOB#: [id number] CC:
--- NOTE | 2019-07-01 07:28 | NUR ---
HAND-OFF: Report given to Glenna Sotomayor RN.
[2019-07-01] MEDS ORDERED: LORazepam 1mg tab ORAL PRN (07:45)
--- NOTE | 2019-07-01 07:51 | NUR ---
NURSE NOTES: Patient awake, alert x4; on nasal cannula 2 Liter, no sing of distress and shortness of breath; no sing of chest pain; No IV Access, MD aware; side rails up x2, breaks engaged, bed at lowest position; call light within reach; will keep monitoring.
--- NOTE | 2019-07-01 07:56 | Pulmonology Progress Note ---
Assessment/Plan Assessment/Plan ASSESSMENT Advanced O2 dependent COPD Chronic methadone use PLAN DC planning to SNF O2 Methadone Will follow Subjective Interval Events: None new Constitutional: Reports: no symptoms HEENT: Repors: no symptoms Respiratory: Reports: no symptoms Cardiovascular: Reports: no symptoms Gastrointestinal/Abdominal: Reports: no symptoms Allergies: Coded Allergies: No Known Allergies (Unverified , 02/05/18) Objective Last 24 Hour Vital Signs Date Time Temp Pulse Resp B/P (MAP) Pulse Ox O2 Delivery O2 Flow Rate FiO2 07/01/19 03:50 97.8 86 16 126/74 (91) 96 06/30/19 20:08 Nasal Cannula 2.0 06/30/19 19:57 98.4 80 18 121/70 (87) 93 06/30/19 16:00 98.9 76 18 121/80 (94) 93 06/30/19 12:00 98.6 87 18 134/80 (98) 95 06/30/19 09:00 Nasal Cannula 2.0 06/30/19 08:00 98.6 98 15 120/78 (92) 92 Intake and Output 06/30/19 07/01/19 19:00 07:00 Intake Total 1620 ml 400 ml Balance 1620 ml 400 ml Intake Oral 1620 ml 400 ml # Voids 7 3 # Bowel Movements 1 General Appearance: no acute distress HEENT: normocephalic Respiratory/Chest: chest wall non-tender Cardiovascular: normal peripheral pulses Abdomen: normal bowel sounds Microbiology Date/Time Source Procedure Growth Status 06/28/19 20:45 Urine,Clean Catch Urine Culture - Preliminary Resulted Laboratory Tests 06/30/19 11:55: White Blood Count 12.1#H, Red Blood Count 5.50H, Hemoglobin 16.7H, Hematocrit 52.4H, Mean Corpuscular Volume 95, Mean Corpuscular Hemoglobin 30.4, Mean Corpuscular Hemoglobin Concent 31.8L, Red Cell Distribution Width 11.3L, Platelet Count 397, Mean Platelet Volume 5.8L, Neutrophils (%) (Auto) 83.8H, Lymphocytes (%) (Auto) 12.0L, Monocytes (%) (Auto) 3.5, Eosinophils (%) (Auto) 0.1, Basophils (%) (Auto) 0.7, Sodium Level 141, Potassium Level 4.5, Chloride Level 100, Carbon Dioxide Level 40H, Anion Gap 1L, Blood Urea Nitrogen 21H, Creatinine 0.5L, Estimat Glomerular Filtration Rate > 60, Glucose Level 98, Calcium Level 8.8 Current Medications Medications (Trade) Dose Ordered Sig/Mckayla Route PRN Reason Start Time Stop Time Status Last Admin Dose Admin Acetaminophen (Tylenol) 650 mg Q6H PRN ORAL For Pain 06/26/19 22:00 07/26/19 21:59 Albuterol Sulfate (Proventil) 2.5 mg Q6H PRN HHN Shortness of Breath 06/26/19 22:00 07/01/19 21:59 06/27/19 16:19 Clonidine HCl (Catapres Tab) 0.1 mg Q6H PRN ORAL SBP > 160mmHg 06/26/19 22:00 07/26/19 21:59 Dextrose/Sodium Chloride 1,000 ml @ 60 mls/hr [id number] IV 06/26/19 22:00 07/26/19 21:59 Docusate Sodium (Colace) 100 mg TWICE A DAY ORAL 06/27/19 09:00 07/27/19 08:59 06/30/19 10:25 Lorazepam (Ativan) 1 mg Q6H PRN ORAL For Anxiety 07/01/19 07:45 07/08/19 07:44 Methadone HCl (Methadone HCl) 180 mg DAILY ORAL 06/27/19 09:00 07/04/19 08:59 06/30/19 09:00 Prednisone (predniSONE) 10 mg DAILY ORAL 06/28/19 09:00 07/28/19 08:59 06/30/19 10:16 Sennosides (Senokot) 17.2 mg BEDTIME ORAL 06/27/19 21:00 07/27/19 20:59 Mehdi Obrien MD Jul 01, 2019 07:56
[2019-07-01 08:00] VITALS: BP 108/56
[2019-07-01 08:15] LABS: BASOPHILS % (AUTO) 1.1 % (0.0-2.0); EOSINOPHILS % (AUTO) 0.3 % (0.0-3.0); HEMATOCRIT 52.9 % (37.0-47.0); HEMOGLOBIN 17.2 G/DL (12.0-16.0); LYMPHOCYTES % (AUTO) 29.7 % (20.0-45.0); MEAN CORPUSCULAR VOLUME 96 FL (80-99); MONOCYTES % (AUTO) 5.4 % (1.0-10.0); NEUTROPHILS % (AUTO) 63.5 % (45.0-75.0); PLATELET COUNT 351 K/UL (150-450); RED BLOOD COUNT 5.51 M/UL (4.20-5.40); RED CELL DISTRIBUTION WIDTH 11.5 % (11.6-14.8); WHITE BLOOD COUNT 7.5 K/UL (4.8-10.8)
[2019-07-01] MEDS: Docusate 100mg cap ORAL SCH ×2 (08:22→17:17)
[2019-07-01 08:29] LABS: ANION GAP 3 mmol/L (5-15); BLOOD UREA NITROGEN 19 mg/dL (7-18); CARBON DIOXIDE 38 MMOL/L (21-32); CHLORIDE 99 MMOL/L (98-107); CREATININE 0.6 MG/DL (0.55-1.30); POTASSIUM 4.3 MMOL/L (3.5-5.1); SODIUM 140 MMOL/L (136-145)
--- NOTE | 2019-07-01 08:53 | General Progress Note ---
Assessment/Plan Assessment/Plan: (1) H/O heroin abuse on methadone maintenance Patient will continue Methadone D/w Dr. Mcintosh and he concurred. Subjective Date patient seen: Jul 01, 2019 Time patient seen: 08:00 - am Constitutional: Reports: no symptoms HEENT: Reports: no symptoms Cardiovascular: Reports: no symptoms Respiratory: Reports: no symptoms Gastrointestinal/Abdominal: Reports: no symptoms Genitourinary: Reports: no symptoms Neurologic/Psychiatric: Reports: no symptoms Endocrine: Reports: no symptoms Hematologic/Lymphatic: Reports: no symptoms Allergies: Coded Allergies: No Known Allergies (Unverified , 02/05/18) Subjective Patient is in bed she denies new complaints and is feeling well getting the methadone daily as scheduled. Objective Last 24 Hour Vital Signs Date Time Temp Pulse Resp B/P (MAP) Pulse Ox O2 Delivery O2 Flow Rate FiO2 07/01/19 08:00 98.2 85 20 108/56 (73) 94 07/01/19 03:50 97.8 86 16 126/74 (91) 96 06/30/19 20:08 Nasal Cannula 2.0 06/30/19 19:57 98.4 80 18 121/70 (87) 93 06/30/19 16:00 98.9 76 18 121/80 (94) 93 06/30/19 12:00 98.6 87 18 134/80 (98) 95 06/30/19 09:00 Nasal Cannula 2.0 Intake and Output 06/30/19 07/01/19 19:00 07:00 Intake Total 1620 ml 400 ml Balance 1620 ml 400 ml Intake Oral 1620 ml 400 ml # Voids 7 3 # Bowel Movements 1 Laboratory Tests 06/30/19 11:55: White Blood Count 12.1#H, Red Blood Count 5.50H, Hemoglobin 16.7H, Hematocrit 52.4H, Mean Corpuscular Volume 95, Mean Corpuscular Hemoglobin 30.4, Mean Corpuscular Hemoglobin Concent 31.8L, Red Cell Distribution Width 11.3L, Platelet Count 397, Mean Platelet Volume 5.8L, Neutrophils (%) (Auto) 83.8H, Lymphocytes (%) (Auto) 12.0L, Monocytes (%) (Auto) 3.5, Eosinophils (%) (Auto) 0.1, Basophils (%) (Auto) 0.7, Sodium Level 141, Potassium Level 4.5, Chloride Level 100, Carbon Dioxide Level 40H, Anion Gap 1L, Blood Urea Nitrogen 21H, Creatinine 0.5L, Estimat Glomerular Filtration Rate > 60, Glucose Level 98, Calcium Level 8.8 07/01/19 07:25: White Blood Count 7.5, Red Blood Count 5.51H, Hemoglobin 17.2H, Hematocrit 52.9H , Mean Corpuscular Volume 96, Mean Corpuscular Hemoglobin 31.2H, Mean Corpuscular Hemoglobin Concent 32.5, Red Cell Distribution Width 11.5L, Platelet Count 351, Mean Platelet Volume 6.2L, Neutrophils (%) (Auto) 63.5, Lymphocytes (%) (Auto) 29.7, Monocytes (%) (Auto) 5.4, Eosinophils (%) (Auto) 0.3, Basophils (%) (Auto) 1.1, Sodium Level 140, Potassium Level 4.3, Chloride Level 99, Carbon Dioxide Level 38H, Anion Gap 3L, Blood Urea Nitrogen 19H, Creatinine 0.6, Estimat Glomerular Filtration Rate > 60, Glucose Level 115H, Calcium Level 9.0 Height (Feet): 4 Height (Inches): 2.00 Weight (Pounds): 99 General Appearance: no apparent distress, alert EENT: PERRL/EOMI, normal ENT inspection Neck: non-tender, normal alignment Cardiovascular: normal rate, regular rhythm Respiratory/Chest: decreased breath sounds Abdomen: non tender, soft Extremities: non-tender Edema: no edema noted Generalized Neurologic: alert, oriented x 3 Skin: warm/dry Judah Barber Jul 01, 2019 08:53
--- NOTE | 2019-07-01 09:53 | General Progress Note ---
Assessment/Plan Problem List: (1) Weak ICD Codes: R53.1 - Weakness SNOMED: 77569111 (2) Chronic pain ICD Codes: G89.29 - Other chronic pain SNOMED: 37128142 (3) SOB (shortness of breath) ICD Codes: R06.02 - Shortness of breath SNOMED: 120133923 (4) COPD (chronic obstructive pulmonary disease) ICD Codes: J44.9 - Chronic obstructive pulmonary disease, unspecified SNOMED: 65006882 Qualifiers: Qualified Codes: J44.9 - Chronic obstructive pulmonary disease, unspecified (5) Methadone dependence ICD Codes: F11.20 - Opioid dependence, uncomplicated SNOMED: 384646543 (6) Encephalopathy ICD Codes: G93.40 - Encephalopathy, unspecified SNOMED: 70602220 (7) UTI (urinary tract infection) ICD Codes: N39.0 - Urinary tract infection, site not specified SNOMED: 73565750 Status: unchanged Assessment/Plan: o2 pulm tx pain control pt diet cbc bmp am dc plan Subjective Constitutional: Reports: weakness Allergies: Coded Allergies: No Known Allergies (Unverified , 02/05/18) All Systems: reviewed and negative except above Subjective calm in bed Objective Last 24 Hour Vital Signs Date Time Temp Pulse Resp B/P (MAP) Pulse Ox O2 Delivery O2 Flow Rate FiO2 07/01/19 09:00 Nasal Cannula 2.0 07/01/19 08:00 98.2 85 20 108/56 (73) 94 07/01/19 03:50 97.8 86 16 126/74 (91) 96 06/30/19 20:08 Nasal Cannula 2.0 06/30/19 19:57 98.4 80 18 121/70 (87) 93 06/30/19 16:00 98.9 76 18 121/80 (94) 93 06/30/19 12:00 98.6 87 18 134/80 (98) 95 Intake and Output 06/30/19 07/01/19 19:00 07:00 Intake Total 1620 ml 400 ml Balance 1620 ml 400 ml Intake Oral 1620 ml 400 ml # Voids 7 3 # Bowel Movements 1 Laboratory Tests 06/30/19 11:55: White Blood Count 12.1#H, Red Blood Count 5.50H, Hemoglobin 16.7H, Hematocrit 52.4H, Mean Corpuscular Volume 95, Mean Corpuscular Hemoglobin 30.4, Mean Corpuscular Hemoglobin Concent 31.8L, Red Cell Distribution Width 11.3L, Platelet Count 397, Mean Platelet Volume 5.8L, Neutrophils (%) (Auto) 83.8H, Lymphocytes (%) (Auto) 12.0L, Monocytes (%) (Auto) 3.5, Eosinophils (%) (Auto) 0.1, Basophils (%) (Auto) 0.7, Sodium Level 141, Potassium Level 4.5, Chloride Level 100, Carbon Dioxide Level 40H, Anion Gap 1L, Blood Urea Nitrogen 21H, Creatinine 0.5L, Estimat Glomerular Filtration Rate > 60, Glucose Level 98, Calcium Level 8.8 07/01/19 07:25: White Blood Count 7.5, Red Blood Count 5.51H, Hemoglobin 17.2H, Hematocrit 52.9H , Mean Corpuscular Volume 96, Mean Corpuscular Hemoglobin 31.2H, Mean Corpuscular Hemoglobin Concent 32.5, Red Cell Distribution Width 11.5L, Platelet Count 351, Mean Platelet Volume 6.2L, Neutrophils (%) (Auto) 63.5, Lymphocytes (%) (Auto) 29.7, Monocytes (%) (Auto) 5.4, Eosinophils (%) (Auto) 0.3, Basophils (%) (Auto) 1.1, Sodium Level 140, Potassium Level 4.3, Chloride Level 99, Carbon Dioxide Level 38H, Anion Gap 3L, Blood Urea Nitrogen 19H, Creatinine 0.6, Estimat Glomerular Filtration Rate > 60, Glucose Level 115H, Calcium Level 9.0 Height (Feet): 4 Height (Inches): 2.00 Weight (Pounds): 99 General Appearance: lethargic EENT: normal ENT inspection Neck: normal alignment Cardiovascular: normal peripheral pulses, normal rate, regular rhythm Respiratory/Chest: chest wall non-tender, lungs clear, normal breath sounds Abdomen: normal bowel sounds, non tender, soft Extremities: normal inspection Edema: no edema noted Arm (L), no edema noted Arm (R), no edema noted Leg (L), no edema noted Leg (R), no edema noted Pedal (L), no edema noted Pedal (R), no edema noted Generalized Neurologic: motor weakness Skin: normal pigmentation, warm/dry Nam Rogel DO Jul 01, 2019 09:53
[2019-07-01 12:00] VITALS: BP 114/64
--- NOTE | 2019-07-01 15:41 | Infectious Diseases Prog Note ---
Assessment/Plan Assessment/Plan Assessment/Plan: Afebrile Leukocytosis 2/2 steroids Asymptomatic bacteriuria denies dysuria, suprapubic pain, flank pain UA 20-30WBC, moderate epithelial cells UCx: mixed gram positive COPD CXR: Diffuse interstitial prominence, which can be seen with peribronchial thickening the setting of reactive/infectious airways disease Heroin abuse on methadone Plan: monitor off antibiotics. ok to DC back to SNF. breathing treatments per pulm steroid per pulm aspiration precaution, elevate HOB Thank you for this consult. [facility] will continue to follow the patient with you. Subjective Allergies: Coded Allergies: No Known Allergies (Unverified , 02/05/18) Subjective Afebrile. Leukocytosis resolved Denies dysuria, suprapubic pain, back pain, abdominal pain Pt is anxious to leave the hospital Objective Vital Signs Last 24 Hour Vital Signs Date Time Temp Pulse Resp B/P (MAP) Pulse Ox O2 Delivery O2 Flow Rate FiO2 07/01/19 12:00 97.7 77 20 114/64 (81) 94 07/01/19 09:00 Nasal Cannula 2.0 07/01/19 08:00 98.2 85 20 108/56 (73) 94 07/01/19 03:50 97.8 86 16 126/74 (91) 96 06/30/19 20:08 Nasal Cannula 2.0 06/30/19 19:57 98.4 80 18 121/70 (87) 93 06/30/19 16:00 98.9 76 18 121/80 (94) 93 Height (Feet): 4 Height (Inches): 2.00 Weight (Pounds): 99 Objective VS: reviewed Gen: NAD HEENT: anicteric sclera CV: RRR Resp: inspiratory and expiratory wheezes Abd: Soft. no TTP. normoactive BS+ Ext: No LE edema Neuro: alert. interactive Microbiology Date/Time Source Procedure Growth Status 06/28/19 20:45 Urine,Clean Catch Urine Culture - Preliminary Mixed Gram Positive Organism Resulted Laboratory Tests Test 07/01/19 07:25 White Blood Count 7.5 K/UL (4.8-10.8) Red Blood Count 5.51 M/UL (4.20-5.40) H Hemoglobin 17.2 G/DL (12.0-16.0) H Hematocrit 52.9 % (37.0-47.0) H Mean Corpuscular Volume 96 FL (80-99) Mean Corpuscular Hemoglobin 31.2 PG (27.0-31.0) H Mean Corpuscular Hemoglobin Concent 32.5 G/DL (32.0-36.0) Red Cell Distribution Width 11.5 % (11.6-14.8) L Platelet Count 351 K/UL (150-450) Mean Platelet Volume 6.2 FL (6.5-10.1) L Neutrophils (%) (Auto) 63.5 % (45.0-75.0) Lymphocytes (%) (Auto) 29.7 % (20.0-45.0) Monocytes (%) (Auto) 5.4 % (1.0-10.0) Eosinophils (%) (Auto) 0.3 % (0.0-3.0) Basophils (%) (Auto) 1.1 % (0.0-2.0) Sodium Level 140 MMOL/L (136-145) Potassium Level 4.3 MMOL/L (3.5-5.1) Chloride Level 99 MMOL/L (98-107) Carbon Dioxide Level 38 MMOL/L (21-32) H Anion Gap 3 mmol/L (5-15) L Blood Urea Nitrogen 19 mg/dL (7-18) H Creatinine 0.6 MG/DL (0.55-1.30) Estimat Glomerular Filtration Rate > 60 mL/min (>60) Glucose Level 115 MG/DL (74-106) H Calcium Level 9.0 MG/DL (8.5-10.1) Current Medications Medications (Trade) Dose Ordered Sig/Mckayla Route PRN Reason Start Time Stop Time Status Last Admin Dose Admin Acetaminophen (Tylenol) 650 mg Q6H PRN ORAL For Pain 06/26/19 22:00 07/26/19 21:59 Albuterol Sulfate (Proventil) 2.5 mg Q6H PRN HHN Shortness of Breath 06/26/19 22:00 07/01/19 21:59 06/27/19 16:19 Clonidine HCl (Catapres Tab) 0.1 mg Q6H PRN ORAL SBP > 160mmHg 06/26/19 22:00 07/26/19 21:59 Dextrose/Sodium Chloride 1,000 ml @ 60 mls/hr [id number] IV 06/26/19 22:00 07/26/19 21:59 Docusate Sodium (Colace) 100 mg TWICE A DAY ORAL 06/27/19 09:00 07/27/19 08:59 07/01/19 08:22 Lorazepam (Ativan) 1 mg Q6H PRN ORAL For Anxiety 07/01/19 07:45 07/08/19 07:44 Methadone HCl (Methadone HCl) 180 mg DAILY ORAL 06/27/19 09:00 07/04/19 08:59 07/01/19 08:27 Prednisone (predniSONE) 10 mg DAILY ORAL 06/28/19 09:00 07/28/19 08:59 07/01/19 08:24 Sennosides (Senokot) 17.2 mg BEDTIME ORAL 06/27/19 21:00 07/27/19 20:59 Bozena Hines MD Jul 01, 2019 15:41
[2019-07-01 16:00] VITALS: BP 118/68
--- NOTE | 2019-07-01 17:30 | Progress Note ---
DATE: 07/01/2019 SUBJECTIVE: The patient is a female patient who is 69 years old. The patient does have some confusion, some disorganized thought process, decline in cognition below baseline that is why her attending physician has requested daily psychiatric consultation. This patient is in hospital because of altered mental status, confusion, overall decline cognition below baseline, disorganized. She has got no logical plan for own self-care. MENTAL STATUS EXAMINATION: This is a 69-year-old female. Appearance is disheveled. Attitude, irritable and agitated. Affect, guarded and restricted. Intellect poor. Mood, depressed and anxious. Motor activity, psychomotor agitation. Insight and judgment is poor. DIAGNOSIS: Major depressive disorder, severe, recurrent secondary to opiate dependency. A 20 minutes of cognitive behavioral therapy to help identify automatic negative thoughts and help convert those negative thoughts to more positive thoughts to reduce depression, anxiety, mood lability. In addition to that, continue this patient on methadone and also Ativan at a dose of 1 mg every 6 hours p.r.n. anxiety and agitation and encouraged to interact appropriately with staff and other patient. She will be continued to be followed by Psychiatry throughout hospital course. Chart was reviewed. Discussed with staff. Seen and assessed at the beside. Royce Aguayo M.D. DR: Miriam JOB#: [id number] CC:
--- NOTE | 2019-07-01 19:10 | NUR ---
HAND-OFF: Report given to KARSON Mcginnis.
--- NOTE | 2019-07-01 19:44 | NUR ---
NURSE NOTES: Received patient comfortably sleeping, no SOB noted.
[2019-07-01 20:00] VITALS: BP 120/66
--- NOTE | 2019-07-01 20:12 | NUR ---
CASE MANAGEMENT: REVIEW SI: ENCEPHALOPATHY T 98.0 HR 88 RR 20 BP 108/56 SAT 94% NC/2L RBC 5.51 H/H 17.2/52.9 BUN 20 IS: PREDNISONE PO QD METHADONE PO QD D5 1/2 NS IVF @ 60ML/HR MED/SURG UNIT STATUS DCP: PATIENT IS FROM [facility]
[2019-07-01] MEDS: Sennosides 8.6mg tab ORAL SCH (20:25)
[2019-07-02 04:08] VITALS: BP 122/70
[2019-07-02 06:14] LABS: BASOPHILS % (AUTO) 1.1 % (0.0-2.0); EOSINOPHILS % (AUTO) 0.6 % (0.0-3.0); HEMATOCRIT 51.8 % (37.0-47.0); HEMOGLOBIN 16.9 G/DL (12.0-16.0); LYMPHOCYTES % (AUTO) 32.3 % (20.0-45.0); MEAN CORPUSCULAR VOLUME 96 FL (80-99); MONOCYTES % (AUTO) 5.5 % (1.0-10.0); NEUTROPHILS % (AUTO) 60.4 % (45.0-75.0); PLATELET COUNT 342 K/UL (150-450); RED BLOOD COUNT 5.41 M/UL (4.20-5.40); RED CELL DISTRIBUTION WIDTH 11.7 % (11.6-14.8); WHITE BLOOD COUNT 8.2 K/UL (4.8-10.8)
[2019-07-02 06:44] LABS: ANION GAP 3 mmol/L (5-15); BLOOD UREA NITROGEN 28 mg/dL (7-18); CALCIUM 9.1 MG/DL (8.5-10.1); CARBON DIOXIDE 38 MMOL/L (21-32); CHLORIDE 101 MMOL/L (98-107); CREATININE 0.8 MG/DL (0.55-1.30); POTASSIUM 4.8 MMOL/L (3.5-5.1); SODIUM 142 MMOL/L (136-145)
--- NOTE | 2019-07-02 07:26 | NUR ---
HAND-OFF: Report given to Lili Abraham RN.
[2019-07-02 08:00] VITALS: BP 120/76
--- NOTE | 2019-07-02 08:00 | NUR ---
NURSE NOTES: Patient alert and oriented,sitting up in bed and eating breakfast, respirations unlabored. 02 on at 2L,N/C.Call light within reach.
--- NOTE | 2019-07-02 09:02 | General Progress Note ---
Assessment/Plan Assessment/Plan: (1) H/O heroin abuse on methadone maintenance Patient will continue Methadone D/w Dr. Mcintosh and he concurred. Subjective Date patient seen: Jul 02, 2019 Time patient seen: 08:00 - am Constitutional: Reports: no symptoms HEENT: Reports: no symptoms Cardiovascular: Reports: no symptoms Respiratory: Reports: no symptoms Gastrointestinal/Abdominal: Reports: no symptoms Genitourinary: Reports: no symptoms Neurologic/Psychiatric: Reports: no symptoms Endocrine: Reports: no symptoms Hematologic/Lymphatic: Reports: no symptoms Allergies: Coded Allergies: No Known Allergies (Unverified , 02/05/18) Subjective She is doing well and has been denying any new complaints. Getting the Methadone as ordered. Objective Last 24 Hour Vital Signs Date Time Temp Pulse Resp B/P (MAP) Pulse Ox O2 Delivery O2 Flow Rate FiO2 07/02/19 04:08 98.2 78 16 122/70 (87) 96 07/01/19 20:19 Nasal Cannula 2.0 07/01/19 20:00 97.6 80 18 120/66 (84) 92 07/01/19 18:47 81 18 97 Room Air 21 07/01/19 16:00 98.0 88 20 118/68 (85) 95 07/01/19 12:00 97.7 77 20 114/64 (81) 94 Intake and Output 07/01/19 07/02/19 18:59 06:59 Intake Total 420 ml Balance 420 ml Intake Oral 420 ml # Voids 3 3 Laboratory Tests 07/02/19 05:17: White Blood Count 8.2, Red Blood Count 5.41H, Hemoglobin 16.9H, Hematocrit 51.8H , Mean Corpuscular Volume 96, Mean Corpuscular Hemoglobin 31.3H, Mean Corpuscular Hemoglobin Concent 32.7, Red Cell Distribution Width 11.7, Platelet Count 342, Mean Platelet Volume 6.2L, Neutrophils (%) (Auto) 60.4, Lymphocytes ( %) (Auto) 32.3, Monocytes (%) (Auto) 5.5, Eosinophils (%) (Auto) 0.6, Basophils (%) (Auto) 1.1, Sodium Level 142, Potassium Level 4.8, Chloride Level 101, Carbon Dioxide Level 38H, Anion Gap 3L, Blood Urea Nitrogen 28H, Creatinine 0.8 , Estimat Glomerular Filtration Rate > 60, Glucose Level 95, Calcium Level 9.1 Height (Feet): 4 Height (Inches): 2.00 Weight (Pounds): 99 General Appearance: no apparent distress, alert EENT: PERRL/EOMI, normal ENT inspection Neck: non-tender, supple Cardiovascular: normal rate, regular rhythm Respiratory/Chest: decreased breath sounds Abdomen: non tender, soft Extremities: non-tender Edema: no edema noted Generalized Neurologic: alert, oriented x 3 Skin: warm/dry Judah Barber Jul 02, 2019 09:02
--- NOTE | 2019-07-02 09:41 | Pulmonology Progress Note ---
Assessment/Plan Assessment/Plan ASSESSMENT Advanced O2 dependent COPD Chronic methadone use PLAN DC planning to SNF O2 Methadone Will follow Subjective Interval Events: None new reported Constitutional: Reports: no symptoms HEENT: Repors: no symptoms Respiratory: Reports: no symptoms Cardiovascular: Reports: no symptoms Gastrointestinal/Abdominal: Reports: no symptoms Allergies: Coded Allergies: No Known Allergies (Unverified , 02/05/18) Objective Last 24 Hour Vital Signs Date Time Temp Pulse Resp B/P (MAP) Pulse Ox O2 Delivery O2 Flow Rate FiO2 07/02/19 08:00 97.5 87 19 120/76 (91) 97 07/02/19 04:08 98.2 78 16 122/70 (87) 96 07/01/19 20:19 Nasal Cannula 2.0 07/01/19 20:00 97.6 80 18 120/66 (84) 92 07/01/19 18:47 81 18 97 Room Air 21 07/01/19 16:00 98.0 88 20 118/68 (85) 95 07/01/19 12:00 97.7 77 20 114/64 (81) 94 Intake and Output 07/01/19 07/02/19 18:59 06:59 Intake Total 420 ml Balance 420 ml Intake Oral 420 ml # Voids 3 3 General Appearance: no acute distress HEENT: normocephalic Respiratory/Chest: chest wall non-tender, lungs clear Cardiovascular: normal peripheral pulses Laboratory Tests 07/02/19 05:17: White Blood Count 8.2, Red Blood Count 5.41H, Hemoglobin 16.9H, Hematocrit 51.8H , Mean Corpuscular Volume 96, Mean Corpuscular Hemoglobin 31.3H, Mean Corpuscular Hemoglobin Concent 32.7, Red Cell Distribution Width 11.7, Platelet Count 342, Mean Platelet Volume 6.2L, Neutrophils (%) (Auto) 60.4, Lymphocytes ( %) (Auto) 32.3, Monocytes (%) (Auto) 5.5, Eosinophils (%) (Auto) 0.6, Basophils (%) (Auto) 1.1, Sodium Level 142, Potassium Level 4.8, Chloride Level 101, Carbon Dioxide Level 38H, Anion Gap 3L, Blood Urea Nitrogen 28H, Creatinine 0.8 , Estimat Glomerular Filtration Rate > 60, Glucose Level 95, Calcium Level 9.1 Current Medications Medications (Trade) Dose Ordered Sig/Mckayla Route PRN Reason Start Time Stop Time Status Last Admin Dose Admin Acetaminophen (Tylenol) 650 mg Q6H PRN ORAL For Pain 06/26/19 22:00 07/26/19 21:59 Clonidine HCl (Catapres Tab) 0.1 mg Q6H PRN ORAL SBP > 160mmHg 06/26/19 22:00 07/26/19 21:59 Dextrose/Sodium Chloride 1,000 ml @ 60 mls/hr [id number] IV 06/26/19 22:00 07/26/19 21:59 Docusate Sodium (Colace) 100 mg TWICE A DAY ORAL 06/27/19 09:00 07/27/19 08:59 07/01/19 17:17 Lorazepam (Ativan) 1 mg Q6H PRN ORAL For Anxiety 07/01/19 07:45 07/08/19 07:44 Methadone HCl (Methadone HCl) 180 mg DAILY ORAL 07/02/19 09:00 07/09/19 08:59 Prednisone (predniSONE) 10 mg DAILY ORAL 06/28/19 09:00 07/28/19 08:59 07/01/19 08:24 Sennosides (Senokot) 17.2 mg BEDTIME ORAL 06/27/19 21:00 07/27/19 20:59 Mehdi Obrien MD Jul 02, 2019 09:41
[2019-07-02] MEDS: Docusate 100mg cap ORAL SCH ×2 (09:50→17:59)
[2019-07-02] MEDS: D5 1/2NS 1,000 ML IV SCH (11:20)
[2019-07-02 12:00] VITALS: BP 118/52
--- NOTE | 2019-07-02 13:09 | General Progress Note ---
Assessment/Plan Problem List: (1) Weak ICD Codes: R53.1 - Weakness SNOMED: 79533418 (2) Chronic pain ICD Codes: G89.29 - Other chronic pain SNOMED: 15598000 (3) SOB (shortness of breath) ICD Codes: R06.02 - Shortness of breath SNOMED: 800865813 (4) COPD (chronic obstructive pulmonary disease) ICD Codes: J44.9 - Chronic obstructive pulmonary disease, unspecified SNOMED: 08921969 Qualifiers: Qualified Codes: J44.9 - Chronic obstructive pulmonary disease, unspecified (5) Methadone dependence ICD Codes: F11.20 - Opioid dependence, uncomplicated SNOMED: 162232347 (6) Encephalopathy ICD Codes: G93.40 - Encephalopathy, unspecified SNOMED: 50874641 (7) UTI (urinary tract infection) ICD Codes: N39.0 - Urinary tract infection, site not specified SNOMED: 08105952 Status: unchanged Assessment/Plan: o2 pulm tx pain control pt diet cbc bmp am dc plan Subjective Constitutional: Reports: weakness Allergies: Coded Allergies: No Known Allergies (Unverified , 02/05/18) All Systems: reviewed and negative except above Subjective calm in bed Objective Last 24 Hour Vital Signs Date Time Temp Pulse Resp B/P (MAP) Pulse Ox O2 Delivery O2 Flow Rate FiO2 07/02/19 12:00 98.2 68 19 118/52 (74) 98 07/02/19 09:00 Nasal Cannula 2.0 07/02/19 08:00 97.5 87 19 120/76 (91) 97 07/02/19 04:08 98.2 78 16 122/70 (87) 96 07/01/19 20:19 Nasal Cannula 2.0 07/01/19 20:00 97.6 80 18 120/66 (84) 92 07/01/19 18:47 81 18 97 Room Air 21 07/01/19 16:00 98.0 88 20 118/68 (85) 95 Intake and Output 07/01/19 07/02/19 19:00 07:00 Intake Total 420 ml Balance 420 ml Intake Oral 420 ml # Voids 3 3 Laboratory Tests 07/02/19 05:17: White Blood Count 8.2, Red Blood Count 5.41H, Hemoglobin 16.9H, Hematocrit 51.8H , Mean Corpuscular Volume 96, Mean Corpuscular Hemoglobin 31.3H, Mean Corpuscular Hemoglobin Concent 32.7, Red Cell Distribution Width 11.7, Platelet Count 342, Mean Platelet Volume 6.2L, Neutrophils (%) (Auto) 60.4, Lymphocytes ( %) (Auto) 32.3, Monocytes (%) (Auto) 5.5, Eosinophils (%) (Auto) 0.6, Basophils (%) (Auto) 1.1, Sodium Level 142, Potassium Level 4.8, Chloride Level 101, Carbon Dioxide Level 38H, Anion Gap 3L, Blood Urea Nitrogen 28H, Creatinine 0.8 , Estimat Glomerular Filtration Rate > 60, Glucose Level 95, Calcium Level 9.1 Height (Feet): 4 Height (Inches): 2.00 Weight (Pounds): 99 Nam Rogel DO Jul 02, 2019 13:09
--- NOTE | 2019-07-02 14:47 | Infectious Diseases Prog Note ---
Assessment/Plan Assessment/Plan Assessment/Plan: Afebrile Leukocytosis 2/2 steroids Asymptomatic bacteriuria denies dysuria, suprapubic pain, flank pain UA 20-30WBC, moderate epithelial cells UCx: mixed gram positive COPD CXR: Diffuse interstitial prominence, which can be seen with peribronchial thickening the setting of reactive/infectious airways disease Heroin abuse on methadone Plan: monitor off antibiotics. ok to DC back to SNF. breathing treatments per pulm steroid per pulm aspiration precaution, elevate HOB Thank you for this consult. [facility] will continue to follow the patient with you. Subjective Allergies: Coded Allergies: No Known Allergies (Unverified , 02/05/18) Subjective Afebrile. No leukocytosis. States that she doesn't feel well but denies any localizing symptoms Pt denies chills, dysuria, diarrhea. Objective Vital Signs Last 24 Hour Vital Signs Date Time Temp Pulse Resp B/P (MAP) Pulse Ox O2 Delivery O2 Flow Rate FiO2 07/02/19 12:00 98.2 68 19 118/52 (74) 98 07/02/19 09:00 Nasal Cannula 2.0 07/02/19 08:00 97.5 87 19 120/76 (91) 97 07/02/19 04:08 98.2 78 16 122/70 (87) 96 07/01/19 20:19 Nasal Cannula 2.0 07/01/19 20:00 97.6 80 18 120/66 (84) 92 07/01/19 18:47 81 18 97 Room Air 21 07/01/19 16:00 98.0 88 20 118/68 (85) 95 Height (Feet): 4 Height (Inches): 2.00 Weight (Pounds): 99 Objective VS: reviewed Gen: NAD HEENT: anicteric sclera CV: RRR Resp: inspiratory and expiratory wheezes Abd: Soft. no TTP. normoactive BS+ Ext: No LE edema Neuro: alert. interactive Laboratory Tests Test 07/02/19 05:17 White Blood Count 8.2 K/UL (4.8-10.8) Red Blood Count 5.41 M/UL (4.20-5.40) H Hemoglobin 16.9 G/DL (12.0-16.0) H Hematocrit 51.8 % (37.0-47.0) H Mean Corpuscular Volume 96 FL (80-99) Mean Corpuscular Hemoglobin 31.3 PG (27.0-31.0) H Mean Corpuscular Hemoglobin Concent 32.7 G/DL (32.0-36.0) Red Cell Distribution Width 11.7 % (11.6-14.8) Platelet Count 342 K/UL (150-450) Mean Platelet Volume 6.2 FL (6.5-10.1) L Neutrophils (%) (Auto) 60.4 % (45.0-75.0) Lymphocytes (%) (Auto) 32.3 % (20.0-45.0) Monocytes (%) (Auto) 5.5 % (1.0-10.0) Eosinophils (%) (Auto) 0.6 % (0.0-3.0) Basophils (%) (Auto) 1.1 % (0.0-2.0) Sodium Level 142 MMOL/L (136-145) Potassium Level 4.8 MMOL/L (3.5-5.1) Chloride Level 101 MMOL/L (98-107) Carbon Dioxide Level 38 MMOL/L (21-32) H Anion Gap 3 mmol/L (5-15) L Blood Urea Nitrogen 28 mg/dL (7-18) H Creatinine 0.8 MG/DL (0.55-1.30) Estimat Glomerular Filtration Rate > 60 mL/min (>60) Glucose Level 95 MG/DL (74-106) Calcium Level 9.1 MG/DL (8.5-10.1) Current Medications Medications (Trade) Dose Ordered Sig/Mckayla Route PRN Reason Start Time Stop Time Status Last Admin Dose Admin Acetaminophen (Tylenol) 650 mg Q6H PRN ORAL For Pain 06/26/19 22:00 07/26/19 21:59 Clonidine HCl (Catapres Tab) 0.1 mg Q6H PRN ORAL SBP > 160mmHg 06/26/19 22:00 07/26/19 21:59 Dextrose/Sodium Chloride 1,000 ml @ 60 mls/hr [id number] IV 06/26/19 22:00 07/26/19 21:59 Docusate Sodium (Colace) 100 mg TWICE A DAY ORAL 06/27/19 09:00 07/27/19 08:59 07/02/19 09:50 Lorazepam (Ativan) 1 mg Q6H PRN ORAL For Anxiety 07/01/19 07:45 07/08/19 07:44 Methadone HCl (Methadone HCl) 180 mg DAILY ORAL 07/02/19 09:00 07/09/19 08:59 07/02/19 09:51 Prednisone (predniSONE) 10 mg DAILY ORAL 06/28/19 09:00 07/28/19 08:59 07/02/19 09:51 Sennosides (Senokot) 17.2 mg BEDTIME ORAL 06/27/19 21:00 07/27/19 20:59 Bozena Hines MD Jul 02, 2019 14:47
[2019-07-02 16:00] VITALS: BP 125/68
--- NOTE | 2019-07-02 16:45 | Progress Note ---
DATE: 07/02/2019 SUBJECTIVE: She is 69 years old. She has disorganized thought process. She has altered mental status, confusion, and decline in cognition below baseline. Because of her disorganized thought process and confusion, her attending has requested daily psychiatric consultation for this patient. No logical plan for own self-care. MENTAL STATUS EXAMINATION: This is a 69-year-old female patient. Appearance is disheveled. Attitude, irritable and agitated. Affect, guarded and restricted. Intellect poor. Mood, depressed and anxious. Motor activity, psychomotor agitation. Insight and judgment is poor. DIAGNOSIS: Major depressive disorder, severe, recurrent, rule out depression secondary to opiate dependence. PLAN: Treat the patient with 20 minutes of cognitive behavioral therapy to help identify automatic negative thoughts help her convert negative thoughts to more positive thoughts to reduce depression, anxiety, mood lability. Continue treating this patient with Ativan 1 mg every 6 hours p.r.n. anxiety and agitation, and she is going to continue her methadone maintenance 180 mg daily. Chart reviewed. Discussed with staff. Seen and assessed at bedside. Royce Aguayo M.D. DR: MIRIAM JOB#: [id number] CC:
--- NOTE | 2019-07-02 17:59 | NUR ---
NURSE NOTES: patient sitting up in bed respirations unlabored.Patient ate dinner.Waiting for [facility] personnel to transport patient to [facility] .call light within reach.
--- NOTE | 2019-07-02 18:03 | NUR ---
NURSE NOTES: Patient has discharge order to SN[facility]. Report given to Annie at facility.
--- NOTE | 2019-07-02 19:43 | NUR ---
HAND-OFF: Report given to Kathie MIX.
[2019-07-02 20:00] VITALS: BP 138/88
--- NOTE | 2019-07-02 20:10 | NUR ---
NURSE NOTES: DISCHARGED TO [facility] IN STABLE CONDITION, ACCOMPANIED BY TWO ATTENDANTS, PERSONAL BELONGINGS GIVEN TO PATIENT, VITALS STABLE, AFEBRILE, NAD.
--- NOTE | 2019-07-03 07:46 | Discharge Summary ---
Discharge Summary Discharge Summary _ DATE OF ADMISSION: 06/26/2019 DATE OF DISCHARGE: 07/02/1911 719 DISCHARGED BY: Dr. Rogel REASON FOR ADMISSION: 69 years old female, resident of nursing home facility, with past medical history of COPD/asthma, NSTEMI, methadone dependency, presented to emergency room for evaluation. Patient chronically oxygen dependent due to severe COPD. She denied cough. She denied fever and chills. Patient appeared to be agitated and was screaming, since she did not receive her daily methadone maintenance dose at the facility. Upon evaluation vital signs were stable. Pulse oximetry was 92% on 2 L oxygen via nasal cannula. Patient refused all lab work. Patient subsequently admitted for further management. CONSULTANTS: pulmonary Dr. Obrien ID specialist Dr. Hines pain specialist Dr. Mcintosh psychiatrist Dr. Aguayo [facility] COURSE: Patient admitted to medical surgical floor. longterm facility medications were resumed. family reunification specialist closely followed. Patient with a history of heroine abuse and on chronic methadone maintenance. Methadone continued as per pain specialist directions. Chest x-ray revealed diffuse interstitial prominence, which could be seen with peribronchial thickening in the setting of reactive/infectious airway disease. Energy Efficiency Engineer closely followed. Patient was on oral steroids , Supplemental oxygen titrated to keep pulse oximetry above 92%. Bronchodilator treatment via handheld nebulizing provided. Patient received influenza vaccine. Patient remained afebrile. She developed leukocytosis, likely due to steroids. Patient was monitored off antibiotics as per ID specialist recommendation. Aspiration precaution maintained. Urine culture revealed mixed gram-positive organisms. According to ID specialist , it was asymptomatic bacteriuria. Patient denied any symptoms such as dysuria, suprapubic pain or flank pain. Psychiatrist seen and evaluated patient for initial agitation. Psychiatrist diagnosed patient with major depressive disorder , severe,. recurrent. Cognitive behavioral therapy provided. Anxiolytic were on board as needed. Patient clinically stabilized. Mood was controlled. Patient to complete short course of oral steroids at the facility. Patient required search for another nursing home facility. Placement was found and secured at [facility]. Patient subsequently was transferred for further management. FINAL DIAGNOSES: Advanced O2 dependent COPD Chronic methadone use due to history of heroine abuse Chronic pain Major depressive disorder, severe, recurrent History of [place] Encephalopathy/Agitation DISCHARGE MEDICATIONS: See Medication Reconciliation list. DISCHARGE INSTRUCTIONS: Patient was discharged to the nursing home facility. Follow up with medical doctor at the facility. I have been assigned to dictate discharge summary for this account. I was not involved in the patient's management. Nalini Chen NP Jul 03, 2019 07:46
== END 2019-07-02 20:55 | DRG 896 ==
LOC: EDBD 17:38 → EDBEDREQ 18:05 → EMR 18:42 → 4E 18:53 → OBSVTOIN 18:53 → EDBEDREQ 20:10 → 4E 21:15 → OBSVTOIN 06-28 07:55 → INTOOBSV 06-28 07:55
DX: F11.23 Opioid dependence with withdrawal (principal); G92 Toxic encephalopathy; F33.2 Major depressive disorder, recurrent severe without psychotic features; N39.0 Urinary tract infection, site not specified; T40.2X5A Adverse effect of other opioids, initial encounter; J44.9 Chronic obstructive pulmonary disease, unspecified; G89.29 Other chronic pain; I25.2 Old myocardial infarction; Z99.81 Dependence on supplemental oxygen; R06.02 Shortness of breath
CPT/HCPCS: 36415; 71045; 80048; 80307; 81001; 85025; 87081; 87086; 90689; 93005; 94640; 94664; 99285